=== PATIENT | female | born 1955 | race Caucasian/White ===

== ENCOUNTER 2017-04-20 23:21 | Inpatient (IN) | payer BC, OTHER ==
[2017-04-20] MEDS ORDERED: SODIUM CHLORIDE 0.9% 1,000 ML IV STA (23:48)
[2017-04-20] MEDS ORDERED: ONDANSETRON 4 MG/2 ML VIAL IVP STA (23:48)
[2017-04-20] MEDS ORDERED: PANTOPRAZOLE 40 MG/10 ML VIAL IVP STA (23:48)
--- NOTE | 2017-04-20 23:53 | ED ---
GI Bleed HPI - General Chief complaint: GI Bleed Stated complaint: GI Bleed, dizziness Time Seen by Provider: 04/20/17 23:27 Source: patient Mode of arrival: ambulatory Limitations: no limitations - History of Present Illness Initial comments: This patient is 61-year-old woman who presents to be evaluated for possible GI bleeding. The patient states she was in her usual state of health until after she had eaten, which was around 6 PM tonight. She had an episode of vomiting, and there was some bright red blood associated. Since that time she has had about 4-5 episodes of vomiting, and the blood has darkened and is now coffee- ground material. The patient is denying abdominal pain. No change in bowel movements. No blood or dark tarry stools. The patient does have some postural lightheadedness, but denies chest pain, dyspnea, diaphoresis, syncope or palpitations. She has history of a previous "ulcer surgery" when she was in her 40s. MD complaint: gross hematemesis -: hour(s) - Related Data Allergies Allergy/AdvReac Type Severity Reaction Status Date / Time No Known Allergies Allergy Verified 04/20/17 23:40 Review of Systems ROS Statement: Those systems with pertinent positive or pertinent negative responses have been documented in the HPI. ROS Other: All systems not noted in ROS Statement are negative. Constitutional: Denies: fever, chills, weakness Respiratory: Denies: cough, dyspnea Cardiovascular: Denies: chest pain, palpitations, edema, syncope Gastrointestinal: Reports: nausea, vomiting, hematemesis. Denies: abdominal pain, diarrhea, constipation, melena, hematochezia Genitourinary: Denies: dysuria Musculoskeletal: Denies: back pain Skin: Denies: rash Neurological: Denies: headache, weakness, numbness Hematological/Lymphatic: Denies: easy bleeding Past Medical History Past Medical History: Diabetes Mellitus History of Any Multi-Drug Resistant Organisms: None Reported Past Surgical History: Heart Catheterization Additional Past Surgical History / Comment(s): ear implant Past Psychological History: No Psychological Hx Reported Smoking Status: Former smoker Past Alcohol Use History: Occasional Past Drug Use History: None Reported General Exam Limitations: no limitations General appearance: alert, in no apparent distress Head exam: Present: atraumatic, normocephalic Eye exam: Present: normal appearance, other (Conjunctival pallor). Absent: scleral icterus, conjunctival injection ENT exam: Present: mucous membranes moist, other (Mucosal pallor) Respiratory exam: Present: normal lung sounds bilaterally. Absent: respiratory distress, wheezes, rales, rhonchi, stridor Cardiovascular Exam: Present: regular rate, normal rhythm, systolic murmur ( Grade 1/6 systolic ejection murmur). Absent: diastolic murmur, rubs, gallop GI/Abdominal exam: Present: soft. Absent: distended, tenderness, guarding, rebound, rigid, mass, pulsatile mass, hernia Extremities exam: Present: normal inspection, normal capillary refill. Absent: pedal edema, calf tenderness Back exam: Present: normal inspection. Absent: CVA tenderness (R), CVA tenderness (L) Neurological exam: Present: alert Skin exam: Present: warm, dry, intact, pallor. Absent: rash, cyanosis, diaphoretic, petechiae, mottled Course Vital Signs 04/20/17 04/21/17 04/21/17 23:27 00:58 01:34 Temperature 97.0 F L 98.1 F Pulse Rate 86 87 89 Respiratory 18 18 18 Rate Blood Pressure 114/56 125/58 117/55 O2 Sat by Pulse 97 98 97 Oximetry Medical Decision Making - Lab Data Result diagrams: 04/21/17 00:02 04/21/17 00:02 Lab Results 04/21/17 04/21/17 04/21/17 Range/Units 00:02 00:02 00:02 WBC 10.1 (3.8-10.6) k/uL RBC 2.93 L (3.80-5.40) m/uL Hgb 9.2 L (11.4-16.0) gm/dL Hct 27.4 L (34.0-46.0) % MCV 93.6 (80.0-100.0) fL MCH 31.6 (25.0-35.0) pg MCHC 33.7 (31.0-37.0) g/dL RDW 12.8 (11.5-15.5) % Plt Count 169 (150-450) k/uL Neutrophils % 77 % Lymphocytes % 16 % Monocytes % 4 % Eosinophils % 1 % Basophils % 0 % Neutrophils # 7.9 H (1.3-7.7) k/uL Lymphocytes # 1.6 (1.0-4.8) k/uL Monocytes # 0.4 (0-1.0) k/uL Eosinophils # 0.1 (0-0.7) k/uL Basophils # 0.0 (0-0.2) k/uL Sodium 139 (137-145) mmol/L Potassium 4.9 (3.5-5.1) mmol/L Chloride 105 (98-107) mmol/L Carbon Dioxide 23 (22-30) mmol/L Anion Gap 11 mmol/L BUN 39 H (7-17) mg/dL Creatinine 0.50 L (0.52-1.04) mg/dL Est GFR (MDRD) Af Amer >60 (>60 ml/min/1.73 sqM) Est GFR (MDRD) Non-Af >60 (>60 ml/min/1.73 sqM) Glucose 243 H (74-99) mg/dL Plasma Lactic Acid Yinka (0.7-2.0) mmol/L Calcium 9.2 (8.4-10.2) mg/dL Total Bilirubin 0.5 (0.2-1.3) mg/dL AST 26 (14-36) U/L ALT 44 (9-52) U/L Alkaline Phosphatase 51 (38-126) U/L Total Creatine Kinase 53 (30-135) U/L CK-MB (CK-2) 1.1 (0.0-2.4) ng/mL CK-MB (CK-2) Rel Index 2.1 Troponin I <0.012 (0.000-0.034) ng/mL Total Protein 5.9 L (6.3-8.2) g/dL Albumin 3.7 (3.5-5.0) g/dL Blood Type Blood Type Recheck Antibody Screen Spec Expiration Date 04/21/17 04/21/17 Range/Units 00:02 00:30 WBC (3.8-10.6) k/uL RBC (3.80-5.40) m/uL Hgb (11.4-16.0) gm/dL Hct (34.0-46.0) % MCV (80.0-100.0) fL MCH (25.0-35.0) pg MCHC (31.0-37.0) g/dL RDW (11.5-15.5) % Plt Count (150-450) k/uL Neutrophils % % Lymphocytes % % Monocytes % % Eosinophils % % Basophils % % Neutrophils # (1.3-7.7) k/uL Lymphocytes # (1.0-4.8) k/uL Monocytes # (0-1.0) k/uL Eosinophils # (0-0.7) k/uL Basophils # (0-0.2) k/uL Sodium (137-145) mmol/L Potassium (3.5-5.1) mmol/L Chloride (98-107) mmol/L Carbon Dioxide (22-30) mmol/L Anion Gap mmol/L BUN (7-17) mg/dL Creatinine (0.52-1.04) mg/dL Est GFR (MDRD) Af Amer (>60 ml/min/1.73 sqM) Est GFR (MDRD) Non-Af (>60 ml/min/1.73 sqM) Glucose (74-99) mg/dL Plasma Lactic Acid Yinka 2.1 H (0.7-2.0) mmol/L Calcium (8.4-10.2) mg/dL Total Bilirubin (0.2-1.3) mg/dL AST (14-36) U/L ALT (9-52) U/L Alkaline Phosphatase (38-126) U/L Total Creatine Kinase (30-135) U/L CK-MB (CK-2) (0.0-2.4) ng/mL CK-MB (CK-2) Rel Index Troponin I (0.000-0.034) ng/mL Total Protein (6.3-8.2) g/dL Albumin (3.5-5.0) g/dL Blood Type O Negative Blood Type Recheck O Neg Antibody Screen NEGATIVE Spec Expiration Date 04/24/2017 - 2301 - EKG Data -: EKG Interpreted by [place] EKG shows normal: sinus rhythm, axis (Normal), intervals (Normal), QRS complexes (Normal), ST-T waves (Normal) Rate: normal (Rate 79 bpm) Interpretation: normal EKG Disposition Clinical Impression: Upper gastrointestinal hemorrhage, Anemia Disposition: ADMITTED IP TO THIS [facility] Condition: Fair Referrals: Daphne Waite MD [Primary Care Provider] - 1-2 days
[2017-04-21 00:26] LABS: Basophils % (A) 0 %; CH 32.3; CHCM 34.7; Eosinophils # (A) 0.1 k/uL (0-0.7); Eosinophils % (A) 1 %; HCT 27.4 % (34.0-46.0); HGB 9.2 gm/dL (11.4-16.0); Luc % (Auto) 2; Lymphocytes # (A) 1.6 k/uL (1.0-4.8); Lymphocytes % (A) 16 %; MCH 31.6 pg (25.0-35.0); MCHC 33.7 g/dL (31.0-37.0); MCV 93.6 fL (80.0-100.0); Mean Platelet Volume 9.5; Monocytes # (A) 0.4 k/uL (0-1.0); Monocytes % (A) 4 %; Neutrophils # (A) 7.9 k/uL (1.3-7.7); Neutrophils % (A) 77 %; RBC 2.93 m/uL (3.80-5.40); RDW 12.8 % (11.5-15.5); WBC 10.1 k/uL (3.8-10.6); WBC (Perox) 9.61
[2017-04-21 00:40] LABS: ALT 44 U/L (9-52); AST 26 U/L (14-36); Alkaline Phosphatase 51 U/L (38-126); Anion Gap 11 mmol/L; Blood Urea Nitrogen 39 mg/dL (7-17); Calcium 9.2 mg/dL (8.4-10.2); Carbon Dioxide 23 mmol/L (22-30); Chloride 105 mmol/L (98-107); Glucose 243 mg/dL (74-99); Non-African American GFR(MDRD) >60 (>60 ml/min/1.73 sqM); Potassium 4.9 mmol/L (3.5-5.1); Sodium 139 mmol/L (137-145); Total Bilirubin 0.5 mg/dL (0.2-1.3); Total Protein 5.9 g/dL (6.3-8.2)
[2017-04-21 00:48] LABS: Creatine Kinase 53 U/L (30-135)
[2017-04-21 01:01] LABS: Creatine Kinase MB 1.1 ng/mL (0.0-2.4); Troponin I <0.012 ng/mL (0.000-0.034)
[2017-04-21] MEDS ORDERED: SODIUM CHLORIDE 0.9% 500 ML IV STA (01:57)
[2017-04-21] MEDS ORDERED: NALOXONE 0.4 MG/ML 1 ML VIAL IV PRN (02:06)
[2017-04-21 02:58] LABS: INR 1.2 (<1.1); Prothrombin Time 11.7 sec (9.0-12.0)
[2017-04-21 03:06] LABS: Partial Thromboplastin Time 19.6 sec (22.0-30.0)
[2017-04-21 03:36] VITALS: BMI 28.3
[2017-04-21 04:23] LABS: CHCM 33.5; HDW 2.49; HGB 8.5 gm/dL (11.4-16.0); MCH 32.6 pg (25.0-35.0); MCHC 34.1 g/dL (31.0-37.0); MCV 95.7 fL (80.0-100.0); RBC 2.61 m/uL (3.80-5.40); RDW 12.8 % (11.5-15.5)
[2017-04-21 08:02] LABS: CH 32.2; CHCM 35.3; HCT 23.4 % (34.0-46.0); HDW 2.63; HGB 8.1 gm/dL (11.4-16.0); MCH 31.9 pg (25.0-35.0); MCHC 34.8 g/dL (31.0-37.0); MCV 91.6 fL (80.0-100.0); Mean Platelet Volume 9.2; RBC 2.55 m/uL (3.80-5.40); RDW 12.6 % (11.5-15.5); WBC 9.9 k/uL (3.8-10.6)
[2017-04-21] MEDS: SODIUM CHLORIDE 0.9% 1,000 ML IV SCH ×3 (08:18→15:45)
[2017-04-21] MEDS ORDERED: PANTOPRAZOLE 40 MG/10 ML VIAL IV SCH (09:00)
[2017-04-21] MEDS: ACETAMINOPHEN TAB 325 MG TAB PO PRN ×3 (09:51→23:23)
--- NOTE | 2017-04-21 09:53 | P.CONS ---
History of Present Illness - Reason for Consult Consult date: 04/21/17 GI bleed coffee-ground emesis Requesting physician: Daphne Waite - History of Present Illness 61-year-old female patient of Dr. Waite with a past medical history of diabetes mellitus presents with acute coffee-ground emesis and melena. Patient had a moderate size black bowel movement on Wednesday. Yesterday she had 2 emesis black-colored in nature. History of remote peptic ulcer disease about 20 years ago. No history of colonoscopy. No recent EGD. No aspirin NSAIDs or alcohol. Denies fever, chills, gross hematochezia, or abdominal pain. No weight loss. Hemoglobin 9.2 presently 8.1. Platelet 131. INR 1.2. BUN 39. Creatinine 0.5. Upon review of medical records no previous chemistries to evaluate previous hemoglobin. Review of Systems Constitutional: Denies fever, chills, sweats, weight gain, or loss. HEENT: Negative for migraines, blurred vision or loss, earaches, drainage, tinnitus, oral mucosal lesions, dysphagia, or odynophagia. CARDIAC: Negative for chest pain, arrhythmias, or palpitation. RESPIRATORY: Negative for shortness of breath, hemoptysis, cough, or sputum production. GI: See HPI for pertinent findings. : Negative for hematuria, urgency, frequency, polyuria, or dysuria. GYNc: Denies possibility of . Negative vaginal discharge. MUSCULOSKELETAL: Negative for muscle aches, swelling, arthritis, and arthralgias. NEUROLOGIC: Negative for stroke or TIA. ENDOCRINE: Diabetes mellitus. Negative for thyroid problems. SKIN: Negative for rash or itching. PSYCHIATRIC: Negative history for depression and anxiety All systems: negative (See HPI) Past Medical History Past Medical History: Diabetes Mellitus History of Any Multi-Drug Resistant Organisms: None Reported Past Surgical History: Heart Catheterization Additional Past Surgical History / Comment(s): ear implant Past Anesthesia/Blood Transfusion Reactions: No Reported Reaction Past Psychological History: No Psychological Hx Reported Smoking Status: Former smoker Past Alcohol Use History: Occasional Past Drug Use History: None Reported - Past Family History Mother Additional Family Medical History / Comment(s): Cancer Medications and Allergies Home Medications Medication Instructions Recorded Confirmed Type Levothyroxine Sodium [Synthroid] 88 mcg PO DAILY 04/21/17 04/21/17 History Lisinopril [Prinivil] 5 mg PO DAILY 04/21/17 04/21/17 History Multivitamins, Thera [Multivitamin 1 tab PO DAILY 04/21/17 04/21/17 History (formulary)] Pravastatin Sodium [Pravachol] 20 mg PO HS 04/21/17 04/21/17 History Vit C/E/Zn/Coppr/Lutein/Zeaxan 1 cap PO BID 04/21/17 04/21/17 History [Preservision Areds 2 Softgel] metFORMIN HCL [Glucophage] 850 mg PO BID 04/21/17 04/21/17 History Allergies Allergy/AdvReac Type Severity Reaction Status Date / Time No Known Allergies Allergy Verified 04/21/17 08:43 Physical Exam Vitals: Vital Signs Temp Pulse Pulse Resp BP BP Pulse Ox 04/21/17 07:00 98.6 F 95 16 101/56 98 04/21/17 03:51 94 16 04/21/17 03:37 96.8 F L 91 16 130/64 99 04/21/17 02:21 98.7 F 96 18 117/58 97 04/21/17 01:34 89 18 117/55 97 04/21/17 00:58 98.1 F 87 18 125/58 98 04/20/17 23:27 97.0 F L 86 18 114/56 97 Intake and Output 04/20/17 04/21/17 04/21/17 22:59 06:59 14:59 Intake Total 875 Balance 875 Intake: Amount of Fluid Infused ( 500 ml) Intake, IV Titration 375 Amount Sodium Chloride 0.9% 1, 375 000 ml @ 125 mls/hr IV . Q8H [facility] Rx#:[id number] Other: Voiding Method Toilet # Voids 1 Weight 77.111 kg General appearance: The patient is alert, oriented, in no acute distress. HET: Head is normocephalic and atraumatic. Pupils are equal and reactive. Oropharynx is clear without lesions. Neck: Supple without lymphadenopathy. Trachea midline. Heart: S1 S2. Regular rate and rhythm. Lungs: No crackles or wheezes are heard. Abdomen: Soft, nontender, nondistended with bowel sounds. No peritoneal signs. No palpable organomegaly or masses. Extremities: Normal skin color and turgor. No cyanosis, rash, ulceration, clubbing, or edema. Radial and pedal pulses are 2/4 bilaterally. Neurological: No focal deficits. Strength and sensation are grossly intact. Results CBC & Chem 7: 04/21/17 07:44 04/21/17 00:02 Labs: Abnormal Lab Results - Last 24 Hours (Table) 04/21/17 04/21/17 04/21/17 Range/Units 00:02 00:02 00:30 RBC 2.93 L (3.80-5.40) m/uL Hgb 9.2 L (11.4-16.0) gm/dL Hct 27.4 L (34.0-46.0) % Plt Count (150-450) k/uL Neutrophils # 7.9 H (1.3-7.7) k/uL APTT (22.0-30.0) sec BUN 39 H (7-17) mg/dL Creatinine 0.50 L (0.52-1.04) mg/dL Glucose 243 H (74-99) mg/dL Plasma Lactic Acid Yinka 2.1 H (0.7-2.0) mmol/L Total Protein 5.9 L (6.3-8.2) g/dL 04/21/17 04/21/17 04/21/17 Range/Units 02:30 04:07 07:44 RBC 2.61 L 2.55 L (3.80-5.40) m/uL Hgb 8.5 L 8.1 L (11.4-16.0) gm/dL Hct 25.0 L 23.4 L (34.0-46.0) % Plt Count 138 L 131 L (150-450) k/uL Neutrophils # (1.3-7.7) k/uL APTT 19.6 L (22.0-30.0) sec BUN (7-17) mg/dL Creatinine (0.52-1.04) mg/dL Glucose (74-99) mg/dL Plasma Lactic Acid Yinka (0.7-2.0) mmol/L Total Protein (6.3-8.2) g/dL Assessment and Plan (1) Acute GI bleeding Status: Acute (2) Coffee ground emesis Status: Acute (3) Melena Status: Acute (4) Acute blood loss anemia Status: Acute Plan: 1. Patient consumed a clear liquid diet this morning therefore will proceed with EGD evaluation tomorrow. 2. Diabetic clear liquid diet today. 3. IV Protonix 40 mg twice daily. 4. CBC monitoring. 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 The patient has indicated understanding and acceptance of the risks and procedures discussed. Thank you for this kind referral and the opportunity to participate in the care of your patient. This consultation was discussed with Dr. Flowers. The impression and plan of care have been directed as dictated.
[2017-04-21 14:27] LABS: CH 32.1; CHCM 33.6; HGB 7.4 gm/dL (11.4-16.0); MCH 30.7 pg (25.0-35.0); MCHC 32.1 g/dL (31.0-37.0); MCV 95.9 fL (80.0-100.0); Mean Platelet Volume 9.2; WBC 8.5 k/uL (3.8-10.6)
--- NOTE | 2017-04-21 17:52 | P.HPIM ---
History of Present Illness H&P Date: 04/21/17 Chief Complaint: Gastrointestinal bleeding Patient is a 61-year-old female well known to my practice who presented to [facility] emergency room with 2-3 days history of vomiting up of red blood and having episodes of black tarry stools, on the day of presentation patient was very lightheaded she fell in her bathroom she was unable to get up EMS were called and patient was brought into emergency room. Patient had heme positive stools for hemoglobin on presentation was 8.4 she was admitted to medical floor and gastroenterology consultation was requested. Past Medical History Past Medical History: Diabetes Mellitus History of Any Multi-Drug Resistant Organisms: None Reported Past Surgical History: Heart Catheterization Additional Past Surgical History / Comment(s): ear implant Past Anesthesia/Blood Transfusion Reactions: No Reported Reaction Past Psychological History: No Psychological Hx Reported Smoking Status: Former smoker Past Alcohol Use History: Occasional Past Drug Use History: None Reported - Past Family History Mother Additional Family Medical History / Comment(s): Cancer Medications and Allergies Home Medications Medication Instructions Recorded Confirmed Type Levothyroxine Sodium [Synthroid] 88 mcg PO DAILY 04/21/17 04/21/17 History Lisinopril [Prinivil] 5 mg PO DAILY 04/21/17 04/21/17 History Multivitamins, Thera [Multivitamin 1 tab PO DAILY 04/21/17 04/21/17 History (formulary)] Pravastatin Sodium [Pravachol] 20 mg PO HS 04/21/17 04/21/17 History Vit C/E/Zn/Coppr/Lutein/Zeaxan 1 cap PO BID 04/21/17 04/21/17 History [Preservision Areds 2 Softgel] metFORMIN HCL [Glucophage] 850 mg PO BID 04/21/17 04/21/17 History Allergies Allergy/AdvReac Type Severity Reaction Status Date / Time No Known Allergies Allergy Verified 04/21/17 08:43 Physical Exam Vitals: Vital Signs Temp Pulse Pulse Resp BP BP Pulse Ox 04/21/17 14:48 97.9 F 92 16 111/57 99 04/21/17 07:00 98.6 F 95 16 101/56 98 04/21/17 03:51 94 16 04/21/17 03:37 96.8 F L 91 16 130/64 99 04/21/17 02:21 98.7 F 96 18 117/58 97 04/21/17 01:34 89 18 117/55 97 04/21/17 00:58 98.1 F 87 18 125/58 98 04/20/17 23:27 97.0 F L 86 18 114/56 97 Intake and Output 04/21/17 04/21/17 04/21/17 06:59 14:59 22:59 Intake Total 875 1000 Balance 875 1000 Intake: IV 1000 Sodium Chloride 0.9% 1, 1000 000 ml @ 125 mls/hr IV . Q8H [facility] Rx#:[id number] Amount of Fluid Infused ( 500 ml) Intake, IV Titration 375 Amount Sodium Chloride 0.9% 1, 375 000 ml @ 125 mls/hr IV . Q8H [facility] Rx#:[id number] Other: Voiding Method Toilet # Voids 1 Weight 77.111 kg In general patient is alert and oriented 3 in no apparent distress HEENT head normocephalic and atraumatic Neck is supple no JVD no goiter no lymphadenopathy Chest exam is clear to auscultation no crackles no wheezing Cardiac exam reveals regular heart sounds no gallops no murmurs Abdomen is soft nontender no organomegaly with normal bowel sounds Extremity exam reveals no edema no cyanosis or clubbing Results CBC & Chem 7: 04/21/17 13:51 04/21/17 00:02 Labs: Abnormal Lab Results - Last 24 Hours (Table) 04/21/17 04/21/17 04/21/17 Range/Units 00:02 00:02 00:30 RBC 2.93 L (3.80-5.40) m/uL Hgb 9.2 L (11.4-16.0) gm/dL Hct 27.4 L (34.0-46.0) % Plt Count (150-450) k/uL Neutrophils # 7.9 H (1.3-7.7) k/uL APTT (22.0-30.0) sec BUN 39 H (7-17) mg/dL Creatinine 0.50 L (0.52-1.04) mg/dL Glucose 243 H (74-99) mg/dL Plasma Lactic Acid Yinka 2.1 H (0.7-2.0) mmol/L Total Protein 5.9 L (6.3-8.2) g/dL 04/21/17 04/21/17 04/21/17 Range/Units 02:30 04:07 07:44 RBC 2.61 L 2.55 L (3.80-5.40) m/uL Hgb 8.5 L 8.1 L (11.4-16.0) gm/dL Hct 25.0 L 23.4 L (34.0-46.0) % Plt Count 138 L 131 L (150-450) k/uL Neutrophils # (1.3-7.7) k/uL APTT 19.6 L (22.0-30.0) sec BUN (7-17) mg/dL Creatinine (0.52-1.04) mg/dL Glucose (74-99) mg/dL Plasma Lactic Acid Yinka (0.7-2.0) mmol/L Total Protein (6.3-8.2) g/dL 04/21/17 Range/Units 13:51 RBC 2.40 L (3.80-5.40) m/uL Hgb 7.4 L (11.4-16.0) gm/dL Hct 23.0 L (34.0-46.0) % Plt Count 136 L (150-450) k/uL Neutrophils # (1.3-7.7) k/uL APTT (22.0-30.0) sec BUN (7-17) mg/dL Creatinine (0.52-1.04) mg/dL Glucose (74-99) mg/dL Plasma Lactic Acid Yinka (0.7-2.0) mmol/L Total Protein (6.3-8.2) g/dL Thrombosis Risk Factor Assmnt - Choose All That Apply Any of the Below Risk Factors Present?: No Each Risk Factor Represents 2 Points: Age 61-74 years Thrombosis Risk Factor Assessment Total Risk Factor Score: 2 Thrombosis Risk Factor Assessment Level: Low Risk Assessment and Plan Plan: #1 upper gastrointestinal bleeding, at this time hemoglobin is down to 7.4 patient is maintained on IV Protonix there is no further episodes of vomiting up blood or black tarry stools. Patient will have 1 unit of red blood cell transfusion, consultation for gastroenterology was initiated she is scheduled for EGD tomorrow. #2 anemia of acute blood loss #3 underlying history of [id number] diabetes mellitus patient was maintained on metformin Will hold medication at this time patient is nothing by mouth #4 underlying history of hypothyroidism Will resume Synthroid #5 underlying history of hyperlipidemia Medication and labs were reviewed plan at this time is to transfuse 1 unit of red blood cells were recheck labs in a.m.
[2017-04-21] MEDS: ONDANSETRON 4 MG/2 ML VIAL IVP PRN (21:06)
[2017-04-21] MEDS: PANTOPRAZOLE 40 MG/10 ML VIAL IV SCH (21:07)
[2017-04-22] MEDS: LEVOTHYROXINE 88 MCG TAB PO SCH (06:16)
[2017-04-22] MEDS: SODIUM CHLORIDE 0.9% 1,000 ML IV SCH ×3 (06:17→21:44)
[2017-04-22] MEDS ORDERED: LIDOCAINE 1% INJ 10MG/ML (20 ML MDV) ONE (07:36)
[2017-04-22] MEDS ORDERED: PROPOFOL 10 MG/ML 20 ML VIAL IV ONE (07:36)
[2017-04-22] MEDS ORDERED: LACTATED RINGERS 1,000 ML IV ONE (07:37)
[2017-04-22 07:38] LABS: Basophils % (A) 0 %; CH 32.8; CHCM 35.2; Eosinophils # (A) 0.2 k/uL (0-0.7); Eosinophils % (A) 3 %; HCT 20.7 % (34.0-46.0); HDW 2.89; HGB 7.1 gm/dL (11.4-16.0); Luc # (Auto) 0.18; Luc % (Auto) 3; Lymphocytes # (A) 1.7 k/uL (1.0-4.8); Lymphocytes % (A) 26 %; MCH 32.1 pg (25.0-35.0); MCHC 34.2 g/dL (31.0-37.0); MCV 93.6 fL (80.0-100.0); Mean Platelet Volume 9.6; Monocytes # (A) 0.4 k/uL (0-1.0); Monocytes % (A) 6 %; Neutrophils # (A) 4.1 k/uL (1.3-7.7); Neutrophils % (A) 63 %; RBC 2.21 m/uL (3.80-5.40); RDW 13.3 % (11.5-15.5); WBC 6.5 k/uL (3.8-10.6); WBC (Perox) 6.35
[2017-04-22 07:48] LABS: Anion Gap 4 mmol/L; Blood Urea Nitrogen 28 mg/dL (7-17); Calcium 8.1 mg/dL (8.4-10.2); Carbon Dioxide 27 mmol/L (22-30); Chloride 110 mmol/L (98-107); Glucose 139 mg/dL (74-99); Non-African American GFR(MDRD) >60 (>60 ml/min/1.73 sqM); Potassium 4.5 mmol/L (3.5-5.1); Sodium 141 mmol/L (137-145)
[2017-04-22 07:58] LABS: Glucose,Whole Blood 147 mg/dL (75-99)
--- NOTE | 2017-04-22 08:52 | P.PCN ---
Date of Procedure: 04/22/17 Preoperative Diagnosis: Postoperative Diagnosis: Procedure(s) Performed: Procedure: Esophagogastroduodenoscopy and biopsy and argon plasma coagulation of duodenal telangiectasias. Preoperative diagnosis: Coffee-ground emesis and anemia. Postoperative diagnosis: 1. Small sliding hiatal hernia with no obvious esophagitis or complicated reflux disease. 2. Minimal antral gastritis, biopsies obtained to rule out H. pylori infection. 3. Small duodenal ulceration and multiple duodenal bulb angiectasias spontaneously bleeding at the beginning of the examination controlled by using argon plasma coagulation. Preparation and sedation: Was provided by anesthesia. Brief clinical history: The patient is a 61-year-old female patient with a past medical history of diabetes mellitus presents with acute coffee-ground emesis and melena. Patient had a moderate size black bowel movement 3 days prior to admission. The day prior to admission she had 2 coffee-ground emesis. History of remote peptic ulcer disease about 20 years ago. No history of colonoscopy. No recent EGD. No aspirin NSAIDs or alcohol. Denies fever, chills, gross hematochezia, or abdominal pain. No weight loss. Hemoglobin 9.2 presently 8.1. Platelet 131. INR 1.2. BUN 39. Creatinine 0.5. The details are summarized in the history and physical and dictated consultation. This evaluation to assess for an upper GI source of bleeding. Procedure: With the patient on her left lateral decubitus position and after informed consent and adequate sedation, I passed the Olympus-GIF 160 video upper endoscope through the cricopharyngeus down the esophagus. There was a small sliding hiatal hernia but no obvious esophagitis or complicated reflux disease. No mucosal tears, varices or active bleeding in the esophagus. The endoscope was then passed into the stomach which was insufflated with air and inspected in detail including the retroflex view in the cardia. There was minimal mottling and erythema in the antrum but no ulcers, erosions or active bleeding. The endoscope was then passed into the duodenum. There were no pyloric channel ulcers. The duodenal bulb showed active bleeding. After lavaging the area, I noted a small ulceration and multiple angiectasias that were spontaneously bleeding. I used the argon plasma coagulation power 60 Morrell to control the bleeding. I then obtained biopsies from the antrum before the endoscope was withdrawn. The patient tolerated the procedure well. Plan: The patient was reassured. Would keep on clear liquids and make further plans based on her course. Implants: Indications for Procedure: Operative Findings: Description of Procedure:
[2017-04-22] MEDS: PANTOPRAZOLE 40 MG/10 ML VIAL IV SCH ×2 (09:00→20:00)
[2017-04-22] MEDS: ACETAMINOPHEN TAB 325 MG TAB PO PRN ×3 (09:38→19:59)
[2017-04-22] MEDS ORDERED: FUROSEMIDE 10 MG/ML 2 ML VIAL IV ONE (11:15)
--- NOTE | 2017-04-22 11:18 | P.PN ---
Subjective Hematemesis status post EGD Hemoglobin 7.1. Patient scheduled for another unit of blood today. She denies any abdominal pain. She's had no further episodes of vomiting. Denies any chest pain or shortness of breath. Denies any nausea or vomiting. Denies any difficult urinating. Does report dizziness with sitting up Objective - Vital Signs Vital signs: Vital Signs Temp 98.3 F 04/22/17 07:33 Pulse 96 04/22/17 07:33 Resp 18 04/22/17 07:33 BP 116/60 04/22/17 07:33 Pulse Ox 97 04/22/17 07:33 Intake & Output 04/21/17 04/22/17 04/22/17 18:59 06:59 18:59 Intake Total 1000 1835 50 Balance 1000 1835 50 Intake: IV 1000 50 Sodium Chloride 0.9% 1, 1000 000 ml @ 125 mls/hr IV . Q8H [facility] Rx#:[id number] Intake, IV Titration 625 Amount Sodium Chloride 0.9% 1, 625 000 ml @ 125 mls/hr IV . Q8H [facility] Rx#:[id number] Oral 590 Blood Product 620 Rc As-1 Unit 310 [id number] Other: Voiding Method Toilet # Voids 1 - Exam Head normocephalic Neck supple Lungs clear to auscultation bilaterally no wheezing or crackles Heart regular rate and rhythm S1-S2, no rub or gallop Abdomen is soft nontender nondistended positive bowel sounds no hepatosplenomegaly Extremities no edema Neuro alert and orientated to 3 - Labs CBC & Chem 7: 04/22/17 07:22 04/22/17 07:22 Labs: Abnormal Lab Results - Last 24 Hours (Table) 04/21/17 04/21/17 04/22/17 Range/Units 00:02 13:51 07:22 RBC 2.40 L 2.21 L (3.80-5.40) m/uL Hgb 7.4 L 7.1 L (11.4-16.0) gm/dL Hct 23.0 L 20.7 L (34.0-46.0) % Plt Count 136 L 111 L (150-450) k/uL Chloride (98-107) mmol/L BUN (7-17) mg/dL Glucose (74-99) mg/dL POC Glucose (mg/dL) (75-99) mg/dL Calcium (8.4-10.2) mg/dL Crossmatch See Detail 04/22/17 04/22/17 Range/Units 07:22 07:49 RBC (3.80-5.40) m/uL Hgb (11.4-16.0) gm/dL Hct (34.0-46.0) % Plt Count (150-450) k/uL Chloride 110 H (98-107) mmol/L BUN 28 H (7-17) mg/dL Glucose 139 H (74-99) mg/dL POC Glucose (mg/dL) 147 H (75-99) mg/dL Calcium 8.1 L (8.4-10.2) mg/dL Crossmatch Assessment and Plan Plan: #1 acute upper gastrointestinal bleeding with coffee-ground emesis and melena: Secondary to duodenal ulcer and multiple duodenal bulb angiectasias with spontaneous bleeding that required argon plasma coagulation noted on EGD. Continue IV Protonix. Continue to monitor hemoglobin. #2 acute blood loss anemia secondary to GI bleed. Hemoglobin 7.1. We'll transfuse 1 unit of blood with Lasix at after transfusion. Repeat CBC in a.m. #3 underlying history of [id number] diabetes mellitus patient was maintained on metformin. Metformin on hold during hospitalization. Add sliding scale coverage #4 underlying history of hypothyroidism Will resume Synthroid #5 underlying history of hyperlipidemia Anticipate discharge possibly tomorrow if no further bleeding and hemoglobin improves I performed an examination of the patient and discussed their management with the physician Hangar Attendant. I have reviewed the Physician Hangar Attendant's notes and agree with the documented findings and plan of care
[2017-04-22] MEDS: INSULIN LISPRO (humaLOG) 300 UNIT/3 ML VIAL SQ SCH ×3 (12:40→21:41)
[2017-04-22] MEDS: ONDANSETRON 4 MG/2 ML VIAL IVP PRN (13:24)
[2017-04-22 13:38] LABS: Hemoglobin A1C 6.6 % (4.2-6.1)
[2017-04-22 18:06] LABS: Glucose,Whole Blood 152 mg/dL (75-99)
[2017-04-22] MEDS: PRAVASTATIN SODIUM 20 MG TAB PO SCH (20:00)
[2017-04-22 20:37] LABS: Glucose,Whole Blood 243 mg/dL (75-99)
[2017-04-23] MEDS: SODIUM CHLORIDE 0.9% 1,000 ML IV SCH ×3 (06:08→15:45)
[2017-04-23] MEDS: LEVOTHYROXINE 88 MCG TAB PO SCH (06:08)
[2017-04-23] MEDS: ACETAMINOPHEN TAB 325 MG TAB PO PRN ×2 (06:12→17:05)
[2017-04-23 07:41] LABS: Basophils % (A) 0 %; CH 32.6; Eosinophils % (A) 3 %; HCT 20.3 % (34.0-46.0); HDW 3.08; Luc % (Auto) 2; Lymphocytes # (A) 1.7 k/uL (1.0-4.8); Lymphocytes % (A) 24 %; MCH 31.1 pg (25.0-35.0); MCHC 33.2 g/dL (31.0-37.0); MCV 93.7 fL (80.0-100.0); Mean Platelet Volume 8.7; Monocytes % (A) 5 %; Neutrophils # (A) 4.7 k/uL (1.3-7.7); Neutrophils % (A) 66 %; RBC 2.16 m/uL (3.80-5.40); RDW 15.1 % (11.5-15.5); WBC 7.1 k/uL (3.8-10.6); WBC (Perox) 7.18
[2017-04-23 07:42] LABS: Eosinophils # (A) 0.2 k/uL (0-0.7); Luc # (Auto) 0.16; Monocytes # (A) 0.3 k/uL (0-1.0)
[2017-04-23 07:45] LABS: HGB 6.7 gm/dL (11.4-16.0)
[2017-04-23 07:51] LABS: Glucose,Whole Blood 184 mg/dL (75-99)
[2017-04-23 08:06] LABS: ALT 28 U/L (9-52); AST 21 U/L (14-36); Alkaline Phosphatase 36 U/L (38-126); Anion Gap 7 mmol/L; Blood Urea Nitrogen 21 mg/dL (7-17); Calcium 7.7 mg/dL (8.4-10.2); Carbon Dioxide 24 mmol/L (22-30); Chloride 108 mmol/L (98-107); Glucose 169 mg/dL (74-99); Non-African American GFR(MDRD) >60 (>60 ml/min/1.73 sqM); Potassium 3.8 mmol/L (3.5-5.1); Sodium 139 mmol/L (137-145); Total Bilirubin 0.7 mg/dL (0.2-1.3); Total Protein 4.9 g/dL (6.3-8.2)
[2017-04-23] MEDS: INSULIN LISPRO (humaLOG) 300 UNIT/3 ML VIAL SQ SCH ×4 (08:17→20:31)
[2017-04-23] MEDS: PANTOPRAZOLE 40 MG/10 ML VIAL IV SCH ×2 (08:17→20:31)
[2017-04-23 10:28] LABS: Glucose,Whole Blood 248 mg/dL (75-99)
--- NOTE | 2017-04-23 10:32 | P.PN ---
Subjective Principal diagnosis: Gastrointestinal bleeding Patient is a 61-year-old female well known to my practice who presented to [facility] emergency room with 2-3 days history of vomiting up of red blood and having episodes of black tarry stools, on the day of presentation patient was very lightheaded she fell in her bathroom she was unable to get up EMS were called and patient was brought into emergency room. Patient had heme positive stools for hemoglobin on presentation was 8.4 she was admitted to medical floor and gastroenterology consultation was requested. Patient continues to have significanl bleeding, HGB down to 6.7 2 units of RBCs transfusion were ordered Objective - Vital Signs Vital signs: Vital Signs Temp 98.1 F 04/23/17 07:00 Pulse 78 04/23/17 08:00 Resp 18 04/23/17 08:00 BP 110/61 04/23/17 07:00 Pulse Ox 97 04/23/17 07:00 Intake & Output 04/22/17 04/23/17 04/23/17 18:59 06:59 18:59 Intake Total 360 925 Balance 360 925 Weight 77.111 kg 77.111 kg Intake: IV 50 875 Sodium Chloride 0.9% 1, 875 000 ml @ 125 mls/hr IV . Q8H COUNTS INCLUDE 234 BEDS AT THE [facility] Rx#:[id number] Oral 50 Blood Product 310 Rc As-1 Unit 310 [id number] Other: Voiding Method Toilet Toilet Toilet # Voids 1 1 1 - Exam In general patient is alert and oriented 3 in no apparent distress HEENT head normocephalic and atraumatic Neck is supple no JVD no goiter no lymphadenopathy Chest exam is clear to auscultation no crackles no wheezing Cardiac exam reveals regular heart sounds no gallops no murmurs Abdomen is soft nontender no organomegaly with normal bowel sounds Extremity exam reveals no edema no cyanosis or clubbing - Labs CBC & Chem 7: 04/23/17 07:14 04/23/17 07:14 Labs: Abnormal Lab Results - Last 24 Hours (Table) 04/21/17 04/22/17 04/22/17 Range/Units 00:02 07:22 18:02 RBC (3.80-5.40) m/uL Hgb (11.4-16.0) gm/dL Hct (34.0-46.0) % Plt Count (150-450) k/uL Chloride (98-107) mmol/L BUN (7-17) mg/dL Creatinine (0.52-1.04) mg/dL Glucose (74-99) mg/dL POC Glucose (mg/dL) 152 H (75-99) mg/dL Hemoglobin A1c 6.6 H (4.2-6.1) % Calcium (8.4-10.2) mg/dL Alkaline Phosphatase (38-126) U/L Total Protein (6.3-8.2) g/dL Albumin (3.5-5.0) g/dL Crossmatch See Detail 04/22/17 04/23/17 04/23/17 Range/Units 20:34 07:14 07:14 RBC 2.16 L (3.80-5.40) m/uL Hgb 6.7 L* (11.4-16.0) gm/dL Hct 20.3 L (34.0-46.0) % Plt Count 111 L (150-450) k/uL Chloride 108 H (98-107) mmol/L BUN 21 H (7-17) mg/dL Creatinine 0.49 L (0.52-1.04) mg/dL Glucose 169 H (74-99) mg/dL POC Glucose (mg/dL) 243 H (75-99) mg/dL Hemoglobin A1c (4.2-6.1) % Calcium 7.7 L (8.4-10.2) mg/dL Alkaline Phosphatase 36 L (38-126) U/L Total Protein 4.9 L (6.3-8.2) g/dL Albumin 2.6 L (3.5-5.0) g/dL Crossmatch 04/23/17 Range/Units 07:23 RBC (3.80-5.40) m/uL Hgb (11.4-16.0) gm/dL Hct (34.0-46.0) % Plt Count (150-450) k/uL Chloride (98-107) mmol/L BUN (7-17) mg/dL Creatinine (0.52-1.04) mg/dL Glucose (74-99) mg/dL POC Glucose (mg/dL) 184 H (75-99) mg/dL Hemoglobin A1c (4.2-6.1) % Calcium (8.4-10.2) mg/dL Alkaline Phosphatase (38-126) U/L Total Protein (6.3-8.2) g/dL Albumin (3.5-5.0) g/dL Crossmatch Assessment and Plan Plan: #1 upper gastrointestinal bleeding, at this time hemoglobin is down to 7.4 patient is maintained on IV Protonix there is no further episodes of vomiting up blood or black tarry stools. Patient will have 1 unit of red blood cell transfusion, consultation for gastroenterology was initiated she had EGD yesterday, results were significant for small duodenal ulcer and multiple duodenal bulb angiectesias that were treated with argon plasma coagulation. However through the night patient has significant more bleeding and her hemoglobin this morning is 6.7, patient will be transferred to ICU 2 units of red blood cell transfusion were ordered and will discuss was Dr. Au need for repeat EGD #2 anemia of acute blood loss #3 underlying history of [id number] diabetes mellitus patient was maintained on metformin Will hold medication at this time patient is nothing by mouth #4 underlying history of hypothyroidism Will resume Synthroid #5 underlying history of hyperlipidemia
--- NOTE | 2017-04-23 11:08 | P.PN ---
Subjective Principal diagnosis: GI bleed anemia 61-year-old female admitted with coffee-ground emesis melena status post EGD with biopsy and argon plasma coagulation of duodenal telangiectasias yesterday as well as a small duodenal ulceration not actively bleeding. Patient received 1 unit of blood yesterday for total of 2 units of blood since admission for hemoglobin 7.1. This morning hemoglobin is 6.7. BUN 21 creatinine 0.4. Platelet 111. Black stool 1 this morning. Denies abdominal pain. Feels more weak. No emesis. Afebrile. Arrangements and process transfer to ICU for further monitoring. Blood transfusion 2 units ordered. Objective - Vital Signs Vital signs: Vital Signs Temp 98.4 F 04/23/17 10:33 Pulse 89 04/23/17 11:00 Resp 11 L 04/23/17 11:00 BP 143/65 04/23/17 11:00 Pulse Ox 100 04/23/17 11:00 Intake & Output 04/22/17 04/23/17 04/23/17 18:59 06:59 18:59 Intake Total 360 925 Balance 360 925 Weight 77.111 kg 77.111 kg Intake: IV 50 875 Sodium Chloride 0.9% 1, 875 000 ml @ 125 mls/hr IV . Q8H [facility] Rx#:[id number] Oral 50 Blood Product 310 Rc As-1 Unit 310 [id number] Other: Voiding Method Toilet Toilet Toilet # Voids 1 1 1 - Exam General appearance: The patient is alert, oriented, in no acute distress. HET: Head is normocephalic and atraumatic. Pupils are equal and reactive. Oropharynx is clear without lesions. Neck: Supple without lymphadenopathy. Trachea midline. Heart: S1 S2. Regular rate and rhythm. Lungs: No crackles or wheezes are heard. Abdomen: Soft, nontender, nondistended with bowel sounds. No peritoneal signs. No palpable organomegaly or masses. Extremities: Normal skin color and turgor. No cyanosis, rash, ulceration, clubbing, or edema. Radial and pedal pulses are 2/4 bilaterally. Neurological: No focal deficits. Strength and sensation are grossly intact. - Labs CBC & Chem 7: 04/23/17 07:14 04/23/17 07:14 Labs: Abnormal Lab Results - Last 24 Hours (Table) 04/21/17 04/22/17 04/22/17 Range/Units 00:02 07:22 18:02 RBC (3.80-5.40) m/uL Hgb (11.4-16.0) gm/dL Hct (34.0-46.0) % Plt Count (150-450) k/uL Chloride (98-107) mmol/L BUN (7-17) mg/dL Creatinine (0.52-1.04) mg/dL Glucose (74-99) mg/dL POC Glucose (mg/dL) 152 H (75-99) mg/dL Hemoglobin A1c 6.6 H (4.2-6.1) % Calcium (8.4-10.2) mg/dL Alkaline Phosphatase (38-126) U/L Total Protein (6.3-8.2) g/dL Albumin (3.5-5.0) g/dL Crossmatch See Detail 04/22/17 04/23/17 04/23/17 Range/Units 20:34 07:14 07:14 RBC 2.16 L (3.80-5.40) m/uL Hgb 6.7 L* (11.4-16.0) gm/dL Hct 20.3 L (34.0-46.0) % Plt Count 111 L (150-450) k/uL Chloride 108 H (98-107) mmol/L BUN 21 H (7-17) mg/dL Creatinine 0.49 L (0.52-1.04) mg/dL Glucose 169 H (74-99) mg/dL POC Glucose (mg/dL) 243 H (75-99) mg/dL Hemoglobin A1c (4.2-6.1) % Calcium 7.7 L (8.4-10.2) mg/dL Alkaline Phosphatase 36 L (38-126) U/L Total Protein 4.9 L (6.3-8.2) g/dL Albumin 2.6 L (3.5-5.0) g/dL Crossmatch 04/23/17 04/23/17 Range/Units 07:23 10:26 RBC (3.80-5.40) m/uL Hgb (11.4-16.0) gm/dL Hct (34.0-46.0) % Plt Count (150-450) k/uL Chloride (98-107) mmol/L BUN (7-17) mg/dL Creatinine (0.52-1.04) mg/dL Glucose (74-99) mg/dL POC Glucose (mg/dL) 184 H 248 H (75-99) mg/dL Hemoglobin A1c (4.2-6.1) % Calcium (8.4-10.2) mg/dL Alkaline Phosphatase (38-126) U/L Total Protein (6.3-8.2) g/dL Albumin (3.5-5.0) g/dL Crossmatch Assessment and Plan (1) Acute GI bleeding Status: Acute (2) Coffee ground emesis Status: Acute (3) Melena Status: Acute (4) Acute blood loss anemia Status: Acute (5) Duodenal ulcer Narrative/Plan: Bleeding duodenal telangiectasia status post APC/EGD Status: Acute Plan: 1. Blood transfusion. 2. CBC every 6 hours. 3. IV Protonix 40 mg twice a day. 4. Clear liquid diet. Nothing by mouth after midnight for re-surveillance EGD tomorrow morning. Further workup of her anemia on admission will be determined based on repeat endoscopic results. The admission nurse has discussed the risks, benefits and alternative therapies for the above-mentioned procedure and for both sedation/analgesia as well as necessary blood product administration, if indicated, as they pertain to this patient. The patient has indicated understanding and acceptance of the risks and procedures discussed. Assessment and plan a care discussed with Dr. Talavera
[2017-04-23 11:16] LABS: Basophils % (A) 0 %; CH 32.2; CHCM 34.6; Eosinophils # (A) 0.2 k/uL (0-0.7); Eosinophils % (A) 3 %; HDW 3.12; Luc # (Auto) 0.15; Luc % (Auto) 2; Lymphocytes # (A) 1.5 k/uL (1.0-4.8); Lymphocytes % (A) 21 %; MCH 31.5 pg (25.0-35.0); MCHC 33.7 g/dL (31.0-37.0); MCV 93.7 fL (80.0-100.0); Mean Platelet Volume 9.2; Monocytes # (A) 0.4 k/uL (0-1.0); Monocytes % (A) 5 %; Neutrophils # (A) 4.7 k/uL (1.3-7.7); Neutrophils % (A) 68 %; RBC 2.02 m/uL (3.80-5.40); RDW 15.4 % (11.5-15.5); WBC 6.9 k/uL (3.8-10.6)
[2017-04-23 11:25] LABS: HGB 6.4 gm/dL (11.4-16.0)
[2017-04-23 11:26] LABS: HCT 18.9 % (34.0-46.0)
[2017-04-23 11:39] LABS: INR 1.2 (<1.1); Prothrombin Time 11.5 sec (9.0-12.0)
[2017-04-23 11:49] LABS: Partial Thromboplastin Time 18.7 sec (22.0-30.0)
--- NOTE | 2017-04-23 13:09 | P.CNPUL ---
History of Present Illness Consult date: 04/23/17 Requesting physician: Daphne Waite Reason for consult: other (Upper GI bleeding, patient is presently in the intensive care unit.) Chief complaint: Blackish stools and coffee-ground emesis History of present illness: This is a 61-year-old female with history of diabetes, maintained on metformin, patient had remote history of duodenal ulcer treated medically over 20 years ago. Patient presented to the ER with acute coffee-ground emesis and melena. She had at least 6 bowel movements of black tarry stools. And she also had 2 episodes of emesis, coffee-ground in nature. Patient denies being on nonsteroidal anti-inflammatory drugs, denies any alcohol. Patient was seen by gastroenterology on consultation, and she underwent EGD, she was found to have small sliding hiatal hernia minimal antral gastritis small duodenal ulceration and multiple duodenal bulb angiectasia with spontaneous bleeding at the beginning of the examination controlled by using argon plasma coagulation. Her initially with Lovenox admission was 7.4 and this was on 04/21. Yesterday went down to 7.1, and today her hemoglobin is down to 6.4. So far the patient has received 2 units of packed RBCs, then she was transferred to the ICU, and I was asked to see her on consultation. At the time of my evaluation, patient denied any specific complaints, no headaches no blurred vision no dizziness, no lightheadedness, no nausea no vomiting no abdominal pain continues to have black stools and she had 1 black stool earlier this morning. Denies nausea or hematemesis. Denies abdominal pain, no dysuria and no frequency no urgency. Review of Systems 14 point review of systems obtained, please refer to pertinent positives and negatives as per HPI. Past Medical History Past Medical History: Diabetes Mellitus Additional Past Medical History / Comment(s): History of duodenal ulcer over 20 years ago. History of Any Multi-Drug Resistant Organisms: None Reported Past Surgical History: Heart Catheterization Additional Past Surgical History / Comment(s): ear implant Past Anesthesia/Blood Transfusion Reactions: No Reported Reaction Past Psychological History: No Psychological Hx Reported Smoking Status: Former smoker Past Alcohol Use History: Occasional Past Drug Use History: None Reported - Past Family History Mother Additional Family Medical History / Comment(s): Cancer Medications and Allergies Home Medications Medication Instructions Recorded Confirmed Type Levothyroxine Sodium [Synthroid] 88 mcg PO DAILY 04/21/17 04/21/17 History Lisinopril [Prinivil] 5 mg PO DAILY 04/21/17 04/21/17 History Multivitamins, Thera [Multivitamin 1 tab PO DAILY 04/21/17 04/21/17 History (formulary)] Pravastatin Sodium [Pravachol] 20 mg PO HS 04/21/17 04/21/17 History Vit C/E/Zn/Coppr/Lutein/Zeaxan 1 cap PO BID 04/21/17 04/21/17 History [Preservision Areds 2 Softgel] metFORMIN HCL [Glucophage] 850 mg PO BID 04/21/17 04/21/17 History Allergies Allergy/AdvReac Type Severity Reaction Status Date / Time No Known Allergies Allergy Verified 04/21/17 08:43 Physical Exam Vitals: Vital Signs Temp Pulse Pulse Resp BP BP Pulse Ox 04/23/17 12:50 90 14 124/72 100 04/23/17 12:40 97 32 H 119/60 98 04/23/17 12:30 81 14 111/60 97 04/23/17 12:22 98.6 F 86 14 111/60 96 04/23/17 12:21 97.9 F 81 16 111/60 04/23/17 12:20 80 18 113/63 98 04/23/17 12:10 85 42 H 118/61 96 04/23/17 12:00 97.9 F 86 19 105/59 96 04/23/17 11:52 98.5 F 84 17 105/59 98 04/23/17 11:50 84 18 114/58 97 04/23/17 11:42 98 F 88 14 114/58 95 04/23/17 11:40 84 20 123/64 97 04/23/17 11:30 87 22 117/67 98 04/23/17 11:20 87 19 117/67 98 04/23/17 11:10 86 16 143/65 97 04/23/17 11:00 89 11 L 143/65 100 04/23/17 10:50 86 15 143/65 97 04/23/17 10:33 98.4 F 94 18 140/63 98 04/23/17 08:00 78 18 04/23/17 07:00 98.1 F 78 18 110/61 97 04/22/17 20:46 98.2 F 99 16 109/63 98 04/22/17 16:21 98.6 F 89 18 123/60 100 04/22/17 16:00 89 18 04/22/17 14:48 99.2 F 89 16 128/62 99 04/22/17 14:24 98.6 F 87 18 129/60 98 04/22/17 13:54 98.9 F 89 18 120/57 97 04/22/17 13:44 98.8 F 98 18 117/57 Intake and Output 04/22/17 04/23/17 04/23/17 22:59 06:59 14:59 Intake Total 1235 375 Output Total 1175 Balance 1235 -800 Intake: IV 875 375 Sodium Chloride 0.9% 1, 875 375 000 ml @ 125 mls/hr IV . Q8H [facility] Rx#:[id number] Oral 50 Blood Product 310 0 Rc As-1 Unit 0 [id number] Rc As-1 Unit 310 [id number] Output: Urine 1175 Other: Voiding Method Toilet Indwelling Catheter # Voids 1 1 1 Weight 77.111 kg 77.111 kg Patient Weight 04/24/17 06:59 Weight 77.111 kg General appearance: 61-year-old female in no distress HET: Head is normocephalic and atraumatic. Neck: Supple without lymphadenopathy. No JVD. Heart: S1 S2. Regular rate and rhythm. Lungs: No crackles or wheezes are heard. Abdomen: Soft, nontender, nondistended with bowel sounds. No rebound, no guarding, positive bowel sounds Extremities: No clubbing, no edema, no cyanosis, pulses bilaterally are normal. Neurological: No focal deficits. Results - Laboratory Findings CBC and BMP: 04/23/17 11:02 04/23/17 07:14 PT/INR, D-dimer PT 11.5 sec (9.0-12.0) 04/23/17 11:02 INR 1.2 (<1.1) 04/23/17 11:02 Abnormal lab findings: Abnormal Labs 04/21/17 04/21/17 04/21/17 00:02 00:02 00:02 RBC 2.93 L Hgb 9.2 L Hct 27.4 L Plt Count Neutrophils # 7.9 H APTT Chloride BUN 39 H Creatinine 0.50 L Glucose 243 H POC Glucose (mg/dL) Hemoglobin A1c Plasma Lactic Acid Yinka Calcium Alkaline Phosphatase Total Protein 5.9 L Albumin Crossmatch See Detail 04/21/17 04/21/17 04/21/17 00:30 02:30 04:07 RBC 2.61 L Hgb 8.5 L Hct 25.0 L Plt Count 138 L Neutrophils # APTT 19.6 L Chloride BUN Creatinine Glucose POC Glucose (mg/dL) Hemoglobin A1c Plasma Lactic Acid Yinka 2.1 H Calcium Alkaline Phosphatase Total Protein Albumin Crossmatch 04/21/17 04/21/17 04/22/17 07:44 13:51 07:22 RBC 2.55 L 2.40 L 2.21 L Hgb 8.1 L 7.4 L 7.1 L Hct 23.4 L 23.0 L 20.7 L Plt Count 131 L 136 L 111 L Neutrophils # APTT Chloride BUN Creatinine Glucose POC Glucose (mg/dL) Hemoglobin A1c Plasma Lactic Acid Yinka Calcium Alkaline Phosphatase Total Protein Albumin Crossmatch 04/22/17 04/22/17 04/22/17 07:22 07:22 07:49 RBC Hgb Hct Plt Count Neutrophils # APTT Chloride 110 H BUN 28 H Creatinine Glucose 139 H POC Glucose (mg/dL) 147 H Hemoglobin A1c 6.6 H Plasma Lactic Acid Yinka Calcium 8.1 L Alkaline Phosphatase Total Protein Albumin Crossmatch 04/22/17 04/22/17 04/23/17 18:02 20:34 07:14 RBC 2.16 L Hgb 6.7 L* Hct 20.3 L Plt Count 111 L Neutrophils # APTT Chloride BUN Creatinine Glucose POC Glucose (mg/dL) 152 H 243 H Hemoglobin A1c Plasma Lactic Acid Yinka Calcium Alkaline Phosphatase Total Protein Albumin Crossmatch 04/23/17 04/23/17 04/23/17 07:14 07:23 10:26 RBC Hgb Hct Plt Count Neutrophils # APTT Chloride 108 H BUN 21 H Creatinine 0.49 L Glucose 169 H POC Glucose (mg/dL) 184 H 248 H Hemoglobin A1c Plasma Lactic Acid Yinka Calcium 7.7 L Alkaline Phosphatase 36 L Total Protein 4.9 L Albumin 2.6 L Crossmatch 04/23/17 04/23/17 11:02 11:02 RBC 2.02 L Hgb 6.4 L* Hct 18.9 L* Plt Count 117 L Neutrophils # APTT 18.7 L Chloride BUN Creatinine Glucose POC Glucose (mg/dL) Hemoglobin A1c Plasma Lactic Acid Yinka Calcium Alkaline Phosphatase Total Protein Albumin Crossmatch - Diagnostic Findings Additional studies: No chest x-ray or radiological studies done on this admission Assessment and Plan Plan: Impression: 1 Acute upper GI bleeding from duodenal ulcer and duodenal telangiectasia, status post EGD, argon plasma coagulation. 2 acute anemia secondary to blood loss from upper GI bleeding. 3 duodenal ulcer 4 history of type 2 diabetes Recommendation: Patient will be monitored in the ICU, she is presently receiving her second unit of packed RBCs, she has serial hemoglobin and hematocrit ordered and she is closely being followed by gastroenterology, repeat EGD is being considered for possibly tomorrow. Patient is presently hemodynamically stable, and no active bleeding at the time of my evaluation. We 'll continue to follow. In the meantime continue Protonix 40 mg IV push every 12 hours. Time with Patient: Greater than 30
[2017-04-23 17:22] LABS: Glucose,Whole Blood 126 mg/dL (75-99)
[2017-04-23 19:22] LABS: Basophils # (A) 0.1 k/uL (0-0.2); Basophils % (A) 1 %; Eosinophils # (A) 0.2 k/uL (0-0.7); Eosinophils % (A) 3 %; HCT 28.1 % (34.0-46.0); Luc # (Auto) 0.15; Luc % (Auto) 2; Lymphocytes # (A) 1.6 k/uL (1.0-4.8); Lymphocytes % (A) 21 %; MCHC 32.7 g/dL (31.0-37.0); MCV 94.9 fL (80.0-100.0); Monocytes # (A) 0.3 k/uL (0-1.0); Monocytes % (A) 5 %; Neutrophils # (A) 5.1 k/uL (1.3-7.7); Neutrophils % (A) 69 %; RBC 2.96 m/uL (3.80-5.40); RDW 15.1 % (11.5-15.5); WBC 7.4 k/uL (3.8-10.6); WBC (Perox) 6.99
[2017-04-23 19:26] LABS: HGB 9.2 gm/dL (11.4-16.0)
[2017-04-23 19:30] LABS: Anion Gap 8 mmol/L; Blood Urea Nitrogen 16 mg/dL (7-17); Calcium 7.9 mg/dL (8.4-10.2); Carbon Dioxide 22 mmol/L (22-30); Chloride 110 mmol/L (98-107); Glucose 206 mg/dL (74-99); Magnesium 1.6 mg/dL (1.6-2.3); Non-African American GFR(MDRD) >60 (>60 ml/min/1.73 sqM); Potassium 3.7 mmol/L (3.5-5.1); Sodium 140 mmol/L (137-145)
[2017-04-23 20:22] LABS: Glucose,Whole Blood 191 mg/dL (75-99)
[2017-04-23] MEDS: PRAVASTATIN SODIUM 20 MG TAB PO SCH (21:09)
[2017-04-24] MEDS ORDERED: Potassium Replacement Protocol 1 EACH MISC MISCELLANE PRN (01:49)
[2017-04-24] MEDS ORDERED: Magnesium Replacement Protocol 1 EACH MISC MISCELLANE PRN (01:49)
[2017-04-24] MEDS ORDERED: POTASSIUM CHLORIDE ER 20 MEQ TAB.ER PO SCH ×2 (02:00→20:00)
[2017-04-24] MEDS: MAGNESIUM SULFATE-D5W PMX 1 GM in DEXTROSE/WATER 1 100ML.BAG IVPB SCH ×2 (02:29→03:41)
[2017-04-24] MEDS: POTASSIUM CHLORIDE 10 MEQ, LIDOCAINE 2% INJ 10 MG in SODIUM CHLORIDE 0.9% 100 ML IV SCH ×2 (02:29→03:41)
[2017-04-24] MEDS: SODIUM CHLORIDE 0.9% 1,000 ML IV SCH ×3 (02:38→18:03)
[2017-04-24 02:41] LABS: Basophils % (A) 0 %; CH 32.2; CHCM 35.5; Eosinophils # (A) 0.2 k/uL (0-0.7); Eosinophils % (A) 4 %; HCT 25.3 % (34.0-46.0); HGB 8.6 gm/dL (11.4-16.0); Luc # (Auto) 0.12; Luc % (Auto) 2; Lymphocytes # (A) 1.6 k/uL (1.0-4.8); Lymphocytes % (A) 24 %; MCH 31.2 pg (25.0-35.0); MCV 91.5 fL (80.0-100.0); Mean Platelet Volume 8.5; Monocytes # (A) 0.4 k/uL (0-1.0); Monocytes % (A) 5 %; Neutrophils # (A) 4.2 k/uL (1.3-7.7); Neutrophils % (A) 65 %; RBC 2.76 m/uL (3.80-5.40); RDW 15.8 % (11.5-15.5); WBC 6.5 k/uL (3.8-10.6); WBC (Perox) 6.49
[2017-04-24 08:19] LABS: Anisocytosis Slight; Basophils % (A) 0 %; CH 32.4; Eosinophils # (A) 0.3 k/uL (0-0.7); Eosinophils % (A) 4 %; HCT 24.4 % (34.0-46.0); HDW 3.38; HGB 8.8 gm/dL (11.4-16.0); Hyperchromasia Slight; Luc # (Auto) 0.15; Luc % (Auto) 2; Lymphocytes # (A) 1.4 k/uL (1.0-4.8); Lymphocytes % (A) 20 %; MCH 31.7 pg (25.0-35.0); MCHC 35.8 g/dL (31.0-37.0); MCV 88.4 fL (80.0-100.0); Mean Platelet Volume 8.3; Monocytes # (A) 0.3 k/uL (0-1.0); Monocytes % (A) 4 %; Neutrophils # (A) 4.5 k/uL (1.3-7.7); Neutrophils % (A) 68 %; RBC 2.77 m/uL (3.80-5.40); RDW 16.2 % (11.5-15.5); WBC 6.6 k/uL (3.8-10.6); WBC (Perox) 6.87
[2017-04-24] MEDS: PANTOPRAZOLE 40 MG/10 ML VIAL IV SCH ×2 (08:32→20:28)
[2017-04-24 08:33] LABS: Glucose,Whole Blood 161 mg/dL (75-99)
[2017-04-24] MEDS: INSULIN LISPRO (humaLOG) 300 UNIT/3 ML VIAL SQ SCH ×4 (08:33→20:27)
[2017-04-24 08:45] LABS: ALT 29 U/L (9-52); AST 22 U/L (14-36); Alkaline Phosphatase 40 U/L (38-126); Anion Gap 7 mmol/L; Blood Urea Nitrogen 12 mg/dL (7-17); Calcium 7.8 mg/dL (8.4-10.2); Carbon Dioxide 23 mmol/L (22-30); Chloride 111 mmol/L (98-107); Glucose 154 mg/dL (74-99); Non-African American GFR(MDRD) >60 (>60 ml/min/1.73 sqM); Potassium 3.8 mmol/L (3.5-5.1); Sodium 141 mmol/L (137-145); Total Bilirubin 0.8 mg/dL (0.2-1.3); Total Protein 4.9 g/dL (6.3-8.2)
[2017-04-24] MEDS ORDERED: PROPOFOL 10 MG/ML 20 ML VIAL IV ONE (09:32)
[2017-04-24] MEDS ORDERED: IV FLUID CONTINUATION 1,000 ML IV ONE (09:33)
--- NOTE | 2017-04-24 10:16 | P.PCN ---
Date of Procedure: 04/24/17 Preoperative Diagnosis: Postoperative Diagnosis: Procedure(s) Performed: Procedure: Esophagogastroduodenoscopy. Preoperative diagnosis: Acute recurrent upper GI bleeding and anemia. Postoperative diagnosis: Minimal spontaneous oozing of blood in the duodenal bulb from areas of recent argon plasma coagulation with no single visible vessel or bleeding site to require any specific intervention at this time. Preparation and sedation: Was provided by anesthesia. Brief clinical history: The patient is a 61-year-old female patient with a past medical history of diabetes mellitus presents with acute coffee-ground emesis and melena. Patient had a moderate size black bowel movement 3 days prior to admission. The day prior to admission she had 2 coffee-ground emesis. History of remote peptic ulcer disease about 20 years ago. No history of colonoscopy. No recent EGD. No aspirin NSAIDs or alcohol. Denies fever, chills, gross hematochezia, or abdominal pain. No weight loss. Hemoglobin 9.2 presently 8.1. Platelet 131. INR 1.2. BUN 39. Creatinine 0.5. The patient underwent an evaluation on April 22 to assess for a source of bleeding and she had evidence of active bleeding in the duodenum originating in a small ulceration and areas of angiectasias that were spontaneously bleeding. I used the argon plasma coagulation power 60 Morrell to control the bleeding I then obtained biopsies from the antrum. The biopsies were negative for H. pylori infection. The patient had recurrent drop in her hemoglobin that night down to 6.4 requiring 2 units of packed cells transfusion. The details are summarized in the history and physical and dictated consultation. This evaluation to assess for the status of her upper GI bleeding and anemia and to guide therapy.. Procedure: With the patient on her left lateral decubitus position and after informed consent and adequate sedation, I passed the Olympus-GIF 160 video upper endoscope through the cricopharyngeus down the esophagus. There was a small sliding hiatal hernia but no obvious esophagitis or complicated reflux disease. No mucosal tears, varices or active bleeding in the esophagus. The endoscope was then passed into the stomach which was insufflated with air and inspected in detail including the retroflex view in the cardia. There was minimal mottling and erythema in the antrum but no ulcers, erosions or active bleeding. The area of the biopsy from couple days ago was noted and there was no bleeding. The endoscope was then passed into the duodenum. There were no pyloric channel ulcers. The duodenal bulb showed minimal oozing of blood. After lavaging the area, I noted areas of erythema and friability surrounding the areas which were treated with the plasma coagulation April 22. There was no single visible vessel or bleeding site to require any specific intervention at this time. No biopsies were obtained either. The patient tolerated the procedure well. Plan: The patient was reassured. Would keep on clear liquids and add Carafate. We will continue to monitor her blood counts closely and make further plans based on her course. Implants: Indications for Procedure: Operative Findings: Description of Procedure:
[2017-04-24] MEDS: LEVOTHYROXINE 88 MCG TAB PO SCH (10:36)
--- NOTE | 2017-04-24 11:09 | P.PN ---
Subjective Principal diagnosis: Gastrointestinal bleeding Patient is a 61-year-old female well known to my practice who presented to [facility] emergency room with 2-3 days history of vomiting up of red blood and having episodes of black tarry stools, on the day of presentation patient was very lightheaded she fell in her bathroom she was unable to get up EMS were called and patient was brought into emergency room. Patient had heme positive stools for hemoglobin on presentation was 8.4 she was admitted to medical floor and gastroenterology consultation was requested. Patient continues to have significanl bleeding, HGB down to 6.7 2 units of RBCs transfusion were ordered Objective - Vital Signs Vital signs: Vital Signs Temp 98.0 F 04/24/17 08:00 Pulse 77 04/24/17 09:00 Resp 16 04/24/17 09:00 BP 113/65 04/24/17 09:00 Pulse Ox 98 04/24/17 09:00 Intake & Output 04/23/17 04/24/17 04/24/17 18:59 06:59 18:59 Intake Total 2245 2300 475 Output Total 2825 2195 925 Balance -580 105 -450 Weight 77.111 kg 83.7 kg Intake: IV 1125 1500 475 Sodium Chloride 0.9% 1, 1125 1500 375 000 ml @ 125 mls/hr IV . Q8H ROHITH Rx#:[id number] Intake, IV Titration 400 Amount Magnesium Sulfate-D5w Pmx 200 1 gm In Dextrose/Water 1 100ml.bag @ 100 mls/hr IVPB Q1H ROHITH Rx#: [id number] Potassium Chloride 10 meq 200 Lidocaine 2% Inj 10 mg In Sodium Chloride 0.9% 100 ml @ 100 mls/hr IV Q1HR ROHITH Rx#:[id number] Oral 500 400 Blood Product 620 Rc As-1 Unit 310 [id number] Rc As-1 Unit 310 [id number] Output: Urine 2825 2195 925 Other: Voiding Method Indwelling Catheter Indwelling Catheter Indwelling Catheter # Voids 1 # Bowel Movements 1 - Exam In general patient is alert and oriented 3 in no apparent distress HEENT head normocephalic and atraumatic Neck is supple no JVD no goiter no lymphadenopathy Chest exam is clear to auscultation no crackles no wheezing Cardiac exam reveals regular heart sounds no gallops no murmurs Abdomen is soft nontender no organomegaly with normal bowel sounds Extremity exam reveals no edema no cyanosis or clubbing - Labs CBC & Chem 7: 04/24/17 08:07 04/24/17 08:07 Labs: Abnormal Lab Results - Last 24 Hours (Table) 04/21/17 04/23/17 04/23/17 Range/Units 00:02 11:02 11:02 RBC 2.02 L (3.80-5.40) m/uL Hgb 6.4 L* (11.4-16.0) gm/dL Hct 18.9 L* (34.0-46.0) % RDW (11.5-15.5) % Plt Count 117 L (150-450) k/uL APTT 18.7 L (22.0-30.0) sec Chloride (98-107) mmol/L Creatinine (0.52-1.04) mg/dL Glucose (74-99) mg/dL POC Glucose (mg/dL) (75-99) mg/dL Calcium (8.4-10.2) mg/dL Total Protein (6.3-8.2) g/dL Albumin (3.5-5.0) g/dL Crossmatch See Detail 04/23/17 04/23/17 04/23/17 Range/Units 17:09 19:03 19:03 RBC 2.96 L (3.80-5.40) m/uL Hgb 9.2 L D (11.4-16.0) gm/dL Hct 28.1 L (34.0-46.0) % RDW (11.5-15.5) % Plt Count 124 L (150-450) k/uL APTT (22.0-30.0) sec Chloride 110 H (98-107) mmol/L Creatinine 0.49 L (0.52-1.04) mg/dL Glucose 206 H (74-99) mg/dL POC Glucose (mg/dL) 126 H (75-99) mg/dL Calcium 7.9 L (8.4-10.2) mg/dL Total Protein (6.3-8.2) g/dL Albumin (3.5-5.0) g/dL Crossmatch 04/23/17 04/24/17 04/24/17 Range/Units 20:20 02:30 08:07 RBC 2.76 L 2.77 L (3.80-5.40) m/uL Hgb 8.6 L 8.8 L (11.4-16.0) gm/dL Hct 25.3 L 24.4 L (34.0-46.0) % RDW 15.8 H 16.2 H (11.5-15.5) % Plt Count 107 L 105 L (150-450) k/uL APTT (22.0-30.0) sec Chloride (98-107) mmol/L Creatinine (0.52-1.04) mg/dL Glucose (74-99) mg/dL POC Glucose (mg/dL) 191 H (75-99) mg/dL Calcium (8.4-10.2) mg/dL Total Protein (6.3-8.2) g/dL Albumin (3.5-5.0) g/dL Crossmatch 04/24/17 04/24/17 Range/Units 08:07 08:30 RBC (3.80-5.40) m/uL Hgb (11.4-16.0) gm/dL Hct (34.0-46.0) % RDW (11.5-15.5) % Plt Count (150-450) k/uL APTT (22.0-30.0) sec Chloride 111 H (98-107) mmol/L Creatinine 0.44 L (0.52-1.04) mg/dL Glucose 154 H (74-99) mg/dL POC Glucose (mg/dL) 161 H (75-99) mg/dL Calcium 7.8 L (8.4-10.2) mg/dL Total Protein 4.9 L (6.3-8.2) g/dL Albumin 2.7 L (3.5-5.0) g/dL Crossmatch Assessment and Plan Plan: #1 upper gastrointestinal bleeding, at this time hemoglobin is down to 7.4 patient is maintained on IV Protonix there is no further episodes of vomiting up blood or black tarry stools. Patient will have 1 unit of red blood cell transfusion, consultation for gastroenterology was initiated she had EGD yesterday, results were significant for small duodenal ulcer and multiple duodenal bulb angiectesias that were treated with argon plasma coagulation. However through the night patient has significant more bleeding and her hemoglobin this morning is 8.8, patient was transferred to ICU 2 units of red blood cell transfusion were given yesterday. Patient was seen again by Dr. Au and underwent an EGD is this morning there was minimal wheezing in the duodenal bulb not necessitating any intervention. #2 anemia of acute blood loss #3 underlying history of aht-fglfbdq-wzfeirmri diabetes mellitus patient was maintained on metformin Will hold medication at this time patient is nothing by mouth #4 underlying history of hypothyroidism Will resume Synthroid #5 underlying history of hyperlipidemia Patient is stable she will be monitored, continue was current management
--- NOTE | 2017-04-24 11:13 | P.PN ---
Subjective Principal diagnosis: Acute upper GI bleeding History of present illness: This is a 61-year-old female with history of diabetes, maintained on metformin, patient had remote history of duodenal ulcer treated medically over 20 years ago. Patient presented to the ER with acute coffee-ground emesis and melena. She had at least 6 bowel movements of black tarry stools. And she also had 2 episodes of emesis, coffee-ground in nature. Patient denies being on nonsteroidal anti-inflammatory drugs, denies any alcohol. Patient was seen by gastroenterology on consultation, and she underwent EGD, she was found to have small sliding hiatal hernia minimal antral gastritis small duodenal ulceration and multiple duodenal bulb angiectasia with spontaneous bleeding at the beginning of the examination controlled by using argon plasma coagulation. Her initially with Lovenox admission was 7.4 and this was on 04/21. Yesterday went down to 7.1, and today her hemoglobin is down to 6.4. So far the patient has received 2 units of packed RBCs, then she was transferred to the ICU, and I was asked to see her on consultation. At the time of my evaluation, patient denied any specific complaints, no headaches no blurred vision no dizziness, no lightheadedness, no nausea no vomiting no abdominal pain continues to have black stools and she had 1 black stool earlier this morning. Denies nausea or hematemesis. Denies abdominal pain, no dysuria and no frequency no urgency. Patient was reevaluated today on 04/24/2017, doing quite well, hemodynamically stable, patient received a total of 2 units of packed RBCs and her hemoglobin seems to be stabilizing. Today's hemoglobin is 8.8, yesterday after 2 units of packed RBCs it was 9.2. Hence no significant change is appreciated. Patient underwent EGD again today, and there was minimal oozing from her previous duodenal site, did not require any intervention. And it was felt by the sidehand to leave it alone for now. And continue medical therapy. Overall the patient is doing well, and she is again asymptomatic continues to have some black stools. But no hematemesis and no bright red blood per rectum. Objective - Vital Signs Vital signs: Vital Signs Temp 98.0 F 04/24/17 08:00 Pulse 77 04/24/17 09:00 Resp 16 04/24/17 09:00 BP 113/65 04/24/17 09:00 Pulse Ox 98 04/24/17 09:00 Intake & Output 04/23/17 04/24/17 04/24/17 18:59 06:59 18:59 Intake Total 2245 2300 475 Output Total 2825 2195 925 Balance -580 105 -450 Weight 77.111 kg 83.7 kg Intake: IV 1125 1500 475 Sodium Chloride 0.9% 1, 1125 1500 375 000 ml @ 125 mls/hr IV . Q8H ROHITH Rx#:[id number] Intake, IV Titration 400 Amount Magnesium Sulfate-D5w Pmx 200 1 gm In Dextrose/Water 1 100ml.bag @ 100 mls/hr IVPB Q1H ROHITH Rx#: [id number] Potassium Chloride 10 meq 200 Lidocaine 2% Inj 10 mg In Sodium Chloride 0.9% 100 ml @ 100 mls/hr IV Q1HR ROHITH Rx#:[id number] Oral 500 400 Blood Product 620 Rc As-1 Unit 310 [id number] Rc As-1 Unit 310 [id number] Output: Urine 2825 2195 925 Other: Voiding Method Indwelling Catheter Indwelling Catheter Indwelling Catheter # Voids 1 # Bowel Movements 1 - Exam General appearance: 61-year-old female in no distress HET: Head is normocephalic and atraumatic. Neck: Supple without lymphadenopathy. No JVD. Heart: S1 S2. Regular rate and rhythm. Lungs: No crackles or wheezes are heard. Abdomen: Soft, nontender, nondistended with bowel sounds. No rebound, no guarding, positive bowel sounds Extremities: No clubbing, no edema, no cyanosis, pulses bilaterally are normal. Neurological: No focal deficits. - Labs CBC & Chem 7: 04/24/17 08:07 04/24/17 08:07 Labs: Abnormal Lab Results - Last 24 Hours (Table) 04/21/17 04/23/17 04/23/17 Range/Units 00:02 11:02 11:02 RBC 2.02 L (3.80-5.40) m/uL Hgb 6.4 L* (11.4-16.0) gm/dL Hct 18.9 L* (34.0-46.0) % RDW (11.5-15.5) % Plt Count 117 L (150-450) k/uL APTT 18.7 L (22.0-30.0) sec Chloride (98-107) mmol/L Creatinine (0.52-1.04) mg/dL Glucose (74-99) mg/dL POC Glucose (mg/dL) (75-99) mg/dL Calcium (8.4-10.2) mg/dL Total Protein (6.3-8.2) g/dL Albumin (3.5-5.0) g/dL Crossmatch See Detail 04/23/17 04/23/17 04/23/17 Range/Units 17:09 19:03 19:03 RBC 2.96 L (3.80-5.40) m/uL Hgb 9.2 L D (11.4-16.0) gm/dL Hct 28.1 L (34.0-46.0) % RDW (11.5-15.5) % Plt Count 124 L (150-450) k/uL APTT (22.0-30.0) sec Chloride 110 H (98-107) mmol/L Creatinine 0.49 L (0.52-1.04) mg/dL Glucose 206 H (74-99) mg/dL POC Glucose (mg/dL) 126 H (75-99) mg/dL Calcium 7.9 L (8.4-10.2) mg/dL Total Protein (6.3-8.2) g/dL Albumin (3.5-5.0) g/dL Crossmatch 04/23/17 04/24/17 04/24/17 Range/Units 20:20 02:30 08:07 RBC 2.76 L 2.77 L (3.80-5.40) m/uL Hgb 8.6 L 8.8 L (11.4-16.0) gm/dL Hct 25.3 L 24.4 L (34.0-46.0) % RDW 15.8 H 16.2 H (11.5-15.5) % Plt Count 107 L 105 L (150-450) k/uL APTT (22.0-30.0) sec Chloride (98-107) mmol/L Creatinine (0.52-1.04) mg/dL Glucose (74-99) mg/dL POC Glucose (mg/dL) 191 H (75-99) mg/dL Calcium (8.4-10.2) mg/dL Total Protein (6.3-8.2) g/dL Albumin (3.5-5.0) g/dL Crossmatch 04/24/17 04/24/17 Range/Units 08:07 08:30 RBC (3.80-5.40) m/uL Hgb (11.4-16.0) gm/dL Hct (34.0-46.0) % RDW (11.5-15.5) % Plt Count (150-450) k/uL APTT (22.0-30.0) sec Chloride 111 H (98-107) mmol/L Creatinine 0.44 L (0.52-1.04) mg/dL Glucose 154 H (74-99) mg/dL POC Glucose (mg/dL) 161 H (75-99) mg/dL Calcium 7.8 L (8.4-10.2) mg/dL Total Protein 4.9 L (6.3-8.2) g/dL Albumin 2.7 L (3.5-5.0) g/dL Crossmatch Assessment and Plan Plan: Impression: 1 Acute upper GI bleeding from duodenal ulcer and duodenal telangiectasia, status post EGD, 2, argon plasma coagulation. 1 2 acute anemia secondary to blood loss from upper GI bleeding. 3 duodenal ulcer 4 history of type 2 diabetes Recommendation: Continue present supportive care measures, consider monitoring the patient on the medical surgical floor if she remains stable over the next few hours. No clear-cut need at this point for stay in the ICU. Continue to follow. Time with Patient: Less than 30
[2017-04-24] MEDS: SUCRALFATE 1 GM TAB PO SCH ×2 (12:13→18:02)
[2017-04-24] MEDS: ACETAMINOPHEN TAB 325 MG TAB PO PRN ×2 (12:13→18:02)
[2017-04-24 12:17] LABS: Glucose,Whole Blood 135 mg/dL (75-99)
[2017-04-24 17:18] LABS: Glucose,Whole Blood 138 mg/dL (75-99)
[2017-04-24 18:36] LABS: Anisocytosis Slight; Basophils % (A) 0 %; CH 32.5; CHCM 36.1; Eosinophils # (A) 0.3 k/uL (0-0.7); Eosinophils % (A) 5 %; HCT 24.9 % (34.0-46.0); HGB 8.7 gm/dL (11.4-16.0); Luc # (Auto) 0.18; Luc % (Auto) 3; Lymphocytes # (A) 1.6 k/uL (1.0-4.8); Lymphocytes % (A) 24 %; MCH 31.8 pg (25.0-35.0); MCV 90.9 fL (80.0-100.0); Mean Platelet Volume 8.4; Monocytes # (A) 0.3 k/uL (0-1.0); Monocytes % (A) 5 %; Neutrophils # (A) 4.1 k/uL (1.3-7.7); Neutrophils % (A) 63 %; RBC 2.73 m/uL (3.80-5.40); RDW 16.9 % (11.5-15.5); WBC 6.4 k/uL (3.8-10.6); WBC (Perox) 6.81
[2017-04-24 20:27] LABS: Glucose,Whole Blood 145 mg/dL (75-99)
[2017-04-24] MEDS: PRAVASTATIN SODIUM 20 MG TAB PO SCH (20:28)
[2017-04-24 21:51] VITALS: RESP 16
[2017-04-25] MEDS: LEVOTHYROXINE 88 MCG TAB PO SCH (05:42)
[2017-04-25] MEDS: SODIUM CHLORIDE 0.9% 1,000 ML IV SCH ×3 (05:44→15:08)
[2017-04-25 07:04] LABS: Glucose,Whole Blood 146 mg/dL (75-99)
[2017-04-25 07:48] LABS: Anisocytosis Slight; Basophils % (A) 0 %; CH 31.7; CHCM 33.9; Eosinophils # (A) 0.2 k/uL (0-0.7); Eosinophils % (A) 5 %; HCT 26.2 % (34.0-46.0); HDW 3.24; HGB 8.8 gm/dL (11.4-16.0); Luc # (Auto) 0.12; Luc % (Auto) 3; Lymphocytes % (A) 22 %; MCH 31.7 pg (25.0-35.0); MCHC 33.5 g/dL (31.0-37.0); MCV 94.4 fL (80.0-100.0); Mean Platelet Volume 8.3; Monocytes # (A) 0.2 k/uL (0-1.0); Monocytes % (A) 5 %; Neutrophils # (A) 2.9 k/uL (1.3-7.7); Neutrophils % (A) 65 %; RBC 2.78 m/uL (3.80-5.40); RDW 17.2 % (11.5-15.5); WBC 4.5 k/uL (3.8-10.6); WBC (Perox) 4.68
[2017-04-25 08:02] LABS: ALT 39 U/L (9-52); AST 37 U/L (14-36); Alkaline Phosphatase 46 U/L (38-126); Anion Gap 7 mmol/L; Blood Urea Nitrogen 6 mg/dL (7-17); Calcium 8.3 mg/dL (8.4-10.2); Carbon Dioxide 23 mmol/L (22-30); Chloride 110 mmol/L (98-107); Glucose 137 mg/dL (74-99); Magnesium 1.9 mg/dL (1.6-2.3); Non-African American GFR(MDRD) >60 (>60 ml/min/1.73 sqM); Potassium 4.2 mmol/L (3.5-5.1); Sodium 140 mmol/L (137-145); Total Protein 5.3 g/dL (6.3-8.2)
--- NOTE | 2017-04-25 08:24 | P.PN ---
Subjective 61-year-old female being seen on the surgical unit this morning. Patient's tolerating clear liquid diet. Patient denies abdominal pain. Patient denies any stool this morning . This been no hematemesis. Hemoglobin this morning is 8.8. Patient underwent an EGD and April 24 in summary it showed minimal spontaneous oozing of blood in the duodenal bulb from areas of recent argon plasma coagulation with no single visible vessel or bleeding site to require any specific intervention at this time. History of present illness: This is a 61-year-old female with history of diabetes, maintained on metformin, patient had remote history of duodenal ulcer treated medically over 20 years ago. Patient presented to the ER with acute coffee-ground emesis and melena. She had at least 6 bowel movements of black tarry stools. And she also had 2 episodes of emesis, coffee-ground in nature. Patient denies being on nonsteroidal anti-inflammatory drugs, denies any alcohol. Patient was seen by gastroenterology on consultation, and she underwent EGD, she was found to have small sliding hiatal hernia minimal antral gastritis small duodenal ulceration and multiple duodenal bulb angiectasia with spontaneous bleeding at the beginning of the examination controlled by using argon plasma coagulation. Her initially with Lovenox admission was 7.4 and this was on 04/21. Yesterday went down to 7.1, and today her hemoglobin is down to 6.4. So far the patient has received 2 units of packed RBCs, then she was transferred to the ICU, close monitoring. Patient was able to be transferred out of the ICU on April 24 to the surgical unit Objective - Vital Signs Vital signs: Vital Signs Temp 98.3 F 04/25/17 07:10 Pulse 77 04/25/17 07:10 Resp 16 04/25/17 07:10 BP 120/75 04/25/17 07:10 Pulse Ox 100 04/25/17 07:10 Intake & Output 04/24/17 04/25/17 04/25/17 18:59 06:59 18:59 Intake Total 835 1125 Output Total 925 Balance -90 1125 Intake: IV 475 1125 Sodium Chloride 0.9% 1, 375 1125 000 ml @ 125 mls/hr IV . Q8H ROHITH Rx#:[id number] Oral 360 Output: Urine 925 Other: Voiding Method Indwelling Catheter Toilet # Voids 1 - Exam Physical exam 61-year-old female sitting up in bed and taking a clear liquid diet tolerating a denies any abdominal pain no nausea no vomiting no shortness of breath no chest pain Lungs essentially clear adequate air movement on room air sats are 98% no cough Heart S1-S2 audible and regular denying chest pain Abdomen soft not distended bowel tones present no guarding nontender states no bowel movement this morning no hematemesis Extremities no edema noted - Labs CBC & Chem 7: 04/25/17 07:19 04/25/17 07:19 Labs: Abnormal Lab Results - Last 24 Hours (Table) 04/24/17 04/24/17 04/24/17 Range/Units 08:07 08:07 08:30 RBC 2.77 L (3.80-5.40) m/uL Hgb 8.8 L (11.4-16.0) gm/dL Hct 24.4 L (34.0-46.0) % RDW 16.2 H (11.5-15.5) % Plt Count 105 L (150-450) k/uL Chloride 111 H (98-107) mmol/L BUN (7-17) mg/dL Creatinine 0.44 L (0.52-1.04) mg/dL Glucose 154 H (74-99) mg/dL POC Glucose (mg/dL) 161 H (75-99) mg/dL Calcium 7.8 L (8.4-10.2) mg/dL AST (14-36) U/L Total Protein 4.9 L (6.3-8.2) g/dL Albumin 2.7 L (3.5-5.0) g/dL 04/24/17 04/24/17 04/24/17 Range/Units 12:15 17:14 18:27 RBC 2.73 L (3.80-5.40) m/uL Hgb 8.7 L (11.4-16.0) gm/dL Hct 24.9 L (34.0-46.0) % RDW 16.9 H (11.5-15.5) % Plt Count 120 L (150-450) k/uL Chloride (98-107) mmol/L BUN (7-17) mg/dL Creatinine (0.52-1.04) mg/dL Glucose (74-99) mg/dL POC Glucose (mg/dL) 135 H 138 H (75-99) mg/dL Calcium (8.4-10.2) mg/dL AST (14-36) U/L Total Protein (6.3-8.2) g/dL Albumin (3.5-5.0) g/dL 04/24/17 04/25/17 04/25/17 Range/Units 20:25 06:51 07:19 RBC (3.80-5.40) m/uL Hgb (11.4-16.0) gm/dL Hct (34.0-46.0) % RDW (11.5-15.5) % Plt Count (150-450) k/uL Chloride 110 H (98-107) mmol/L BUN 6 L (7-17) mg/dL Creatinine 0.47 L (0.52-1.04) mg/dL Glucose 137 H (74-99) mg/dL POC Glucose (mg/dL) 145 H 146 H (75-99) mg/dL Calcium 8.3 L (8.4-10.2) mg/dL AST 37 H (14-36) U/L Total Protein 5.3 L (6.3-8.2) g/dL Albumin 3.0 L (3.5-5.0) g/dL 04/25/17 Range/Units 07:19 RBC 2.78 L (3.80-5.40) m/uL Hgb 8.8 L (11.4-16.0) gm/dL Hct 26.2 L (34.0-46.0) % RDW 17.2 H (11.5-15.5) % Plt Count 120 L (150-450) k/uL Chloride (98-107) mmol/L BUN (7-17) mg/dL Creatinine (0.52-1.04) mg/dL Glucose (74-99) mg/dL POC Glucose (mg/dL) (75-99) mg/dL Calcium (8.4-10.2) mg/dL AST (14-36) U/L Total Protein (6.3-8.2) g/dL Albumin (3.5-5.0) g/dL Assessment and Plan Plan: Assessment and Plan Plan: #1 upper gastrointestinal bleeding, at this time hemoglobin is down to 7.4 patient is maintained on IV Protonix there is no further episodes of vomiting up blood or black tarry stools. Patient will have 1 unit of red blood cell transfusion, consultation for gastroenterology was initiated she had EGD yesterday, results were significant for small duodenal ulcer and multiple duodenal bulb angiectesias that were treated with argon plasma coagulation. However through the night patient has significant more bleeding and her hemoglobin this morning is 8.8, patient was transferred to ICU 2 units of red blood cell transfusion were given yesterday. Patient was seen again by Dr. Au and underwent an EGD is this morning there was minimal wheezing in the duodenal bulb not necessitating any intervention. #2 admission symptomatic anemia of acute blood loss suspect due to an upper gastrointestinal bleed #3 underlying history of yvv-azfyjur-rfdxtilba diabetes mellitus patient was maintained on metformin Will hold medication at this time patient is nothing by mouth #4 underlying history of hypothyroidism Will resume Synthroid #5 underlying history of hyperlipidemia The above dictated assessment and findings were discussed with dr simon . Impression and the plan of care have been dictated as directed. Isabel Gaytan nurse practitioner acting as a scribe for dr simon
[2017-04-25] MEDS: SUCRALFATE 1 GM TAB PO SCH ×3 (08:41→17:32)
[2017-04-25] MEDS: PANTOPRAZOLE 40 MG/10 ML VIAL IV SCH ×2 (08:41→20:38)
[2017-04-25] MEDS: INSULIN LISPRO (humaLOG) 300 UNIT/3 ML VIAL SQ SCH ×4 (09:11→20:38)
[2017-04-25 11:35] LABS: Glucose,Whole Blood 266 mg/dL (75-99)
--- NOTE | 2017-04-25 11:44 | P.PN ---
Subjective Principal diagnosis: Acute upper GI bleeding This is a 61-year-old female with history of diabetes, maintained on metformin, patient had remote history of duodenal ulcer treated medically over 20 years ago. Patient presented to the ER with acute coffee-ground emesis and melena. She had at least 6 bowel movements of black tarry stools. And she also had 2 episodes of emesis, coffee-ground in nature. Patient denies being on nonsteroidal anti-inflammatory drugs, denies any alcohol. Patient was seen by gastroenterology on consultation, and she underwent EGD, she was found to have small sliding hiatal hernia minimal antral gastritis small duodenal ulceration and multiple duodenal bulb angiectasia with spontaneous bleeding at the beginning of the examination controlled by using argon plasma coagulation. Her initially with Lovenox admission was 7.4 and this was on 04/21. Yesterday went down to 7.1, and today her hemoglobin is down to 6.4. So far the patient has received 2 units of packed RBCs, then she was transferred to the ICU, and I was asked to see her on consultation. At the time of my evaluation, patient denied any specific complaints, no headaches no blurred vision no dizziness, no lightheadedness, no nausea no vomiting no abdominal pain continues to have black stools and she had 1 black stool earlier this morning. Denies nausea or hematemesis. Denies abdominal pain, no dysuria and no frequency no urgency. Patient was reevaluated today on 04/24/2017, doing quite well, hemodynamically stable, patient received a total of 2 units of packed RBCs and her hemoglobin seems to be stabilizing. Today's hemoglobin is 8.8, yesterday after 2 units of packed RBCs it was 9.2. Hence no significant change is appreciated. Patient underwent EGD again today, and there was minimal oozing from her previous duodenal site, did not require any intervention. And it was felt by the optical lens manufacturing tech to leave it alone for now. And continue medical therapy. Overall the patient is doing well, and she is again asymptomatic continues to have some black stools. But no hematemesis and no bright red blood per rectum. Reevaluated today on 04/25/2017, patient is doing quite well clinically. Hemoglobin remains stable, patient received a total of 4 units of packed RBCs since admission. Over the last 2 days, no blood transfusion was required. And report of her last EGD was reviewed. Patient is hemodynamically stable, and the relatively asymptomatic. Objective - Vital Signs Vital signs: Vital Signs Temp 98.3 F 04/25/17 07:10 Pulse 77 04/25/17 07:10 Resp 16 04/25/17 07:10 BP 120/75 04/25/17 07:10 Pulse Ox 100 04/25/17 07:10 Intake & Output 04/24/17 04/25/17 04/25/17 18:59 06:59 18:59 Intake Total 835 1125 Output Total 925 Balance -90 1125 Intake: IV 475 1125 Sodium Chloride 0.9% 1, 375 1125 000 ml @ 125 mls/hr IV . Q8H ROHITH Rx#:[id number] Oral 360 Output: Urine 925 Other: Voiding Method Indwelling Catheter Toilet # Voids 1 - Exam General appearance: 61-year-old female in no distress HET: Head is normocephalic and atraumatic. Neck: Supple without lymphadenopathy. No JVD. Heart: S1 S2. Regular rate and rhythm. Lungs: No crackles or wheezes are heard. Abdomen: Soft, nontender, nondistended with bowel sounds. No rebound, no guarding, positive bowel sounds Extremities: No clubbing, no edema, no cyanosis, pulses bilaterally are normal. Neurological: No focal deficits. - Labs CBC & Chem 7: 04/25/17 07:19 04/25/17 07:19 Labs: Abnormal Lab Results - Last 24 Hours (Table) 04/24/17 04/24/17 04/24/17 Range/Units 12:15 17:14 18:27 RBC 2.73 L (3.80-5.40) m/uL Hgb 8.7 L (11.4-16.0) gm/dL Hct 24.9 L (34.0-46.0) % RDW 16.9 H (11.5-15.5) % Plt Count 120 L (150-450) k/uL Chloride (98-107) mmol/L BUN (7-17) mg/dL Creatinine (0.52-1.04) mg/dL Glucose (74-99) mg/dL POC Glucose (mg/dL) 135 H 138 H (75-99) mg/dL Calcium (8.4-10.2) mg/dL AST (14-36) U/L Total Protein (6.3-8.2) g/dL Albumin (3.5-5.0) g/dL 04/24/17 04/25/17 04/25/17 Range/Units 20:25 06:51 07:19 RBC (3.80-5.40) m/uL Hgb (11.4-16.0) gm/dL Hct (34.0-46.0) % RDW (11.5-15.5) % Plt Count (150-450) k/uL Chloride 110 H (98-107) mmol/L BUN 6 L (7-17) mg/dL Creatinine 0.47 L (0.52-1.04) mg/dL Glucose 137 H (74-99) mg/dL POC Glucose (mg/dL) 145 H 146 H (75-99) mg/dL Calcium 8.3 L (8.4-10.2) mg/dL AST 37 H (14-36) U/L Total Protein 5.3 L (6.3-8.2) g/dL Albumin 3.0 L (3.5-5.0) g/dL 04/25/17 04/25/17 Range/Units 07:19 11:26 RBC 2.78 L (3.80-5.40) m/uL Hgb 8.8 L (11.4-16.0) gm/dL Hct 26.2 L (34.0-46.0) % RDW 17.2 H (11.5-15.5) % Plt Count 120 L (150-450) k/uL Chloride (98-107) mmol/L BUN (7-17) mg/dL Creatinine (0.52-1.04) mg/dL Glucose (74-99) mg/dL POC Glucose (mg/dL) 266 H (75-99) mg/dL Calcium (8.4-10.2) mg/dL AST (14-36) U/L Total Protein (6.3-8.2) g/dL Albumin (3.5-5.0) g/dL Assessment and Plan Plan: Impression: 1 Acute upper GI bleeding from duodenal ulcer and duodenal telangiectasia, status post EGD, 2, argon plasma coagulation. 1 2 acute anemia secondary to blood loss from upper GI bleeding. 3 duodenal ulcer 4 history of type 2 diabetes Recommendation: Continue present supportive care measures, consider discharge planning in the next 24 hours if cleared by gastroenterology, continue treatment plan for her duodenal angiectasia. Time with Patient: Less than 30
[2017-04-25 16:51] LABS: Glucose,Whole Blood 147 mg/dL (75-99)
[2017-04-25 20:38] LABS: Glucose,Whole Blood 215 mg/dL (75-99)
[2017-04-25] MEDS: PRAVASTATIN SODIUM 20 MG TAB PO SCH (20:38)
[2017-04-26] MEDS: ACETAMINOPHEN TAB 325 MG TAB PO PRN (03:35)
[2017-04-26] MEDS: SODIUM CHLORIDE 0.9% 1,000 ML IV SCH ×2 (04:18→11:59)
--- NOTE | 2017-04-26 04:31 | P.PN ---
Progress Note - Text The patient is a 61-year-old female patient with a past medical history of diabetes mellitus presents with acute coffee-ground emesis and melena. Patient had a moderate size black bowel movement 3 days prior to admission. The day prior to admission she had 2 coffee-ground emesis. History of remote peptic ulcer disease about 20 years ago. The patient underwent an evaluation on April 22 to assess for a source of bleeding and she had evidence of active bleeding in the duodenum originating in a small ulceration and areas of angiectasias that were spontaneously bleeding. I used the argon plasma coagulation power 60 Morrell to control the bleeding I then obtained biopsies from the antrum. The biopsies were negative for H. pylori infection. The patient had recurrent drop in her hemoglobin that night down to 6.4 requiring 2 units of packed cells transfusion. I repeated the upper endoscopy and that showed minimal spontaneous oozing of blood in the duodenal bulb from areas of recent argon plasma coagulation with no single visible vessel or bleeding site to require any specific intervention at this time. The patient continued to improve after that with stabilization in her hemoglobin. Her hemoglobin today is 8.8 essentially unchanged for the last 24 hours. Her vital signs are stable, she is ambulating without any problems. I agree with your current management. I recommend that the patient remain on PPI after discharge for a total of 8-12 weeks. She may require acid suppressive therapy in the future jail especially if she needs to be on NSAIDs. I will be happy to see in the office as outpatient after discharge.
[2017-04-26] MEDS: LEVOTHYROXINE 88 MCG TAB PO SCH (05:32)
[2017-04-26 06:58] LABS: Glucose,Whole Blood 165 mg/dL (75-99)
[2017-04-26 07:03] LABS: Anisocytosis Slight; Basophils % (A) 0 %; CH 32.4; CHCM 35.8; Eosinophils # (A) 0.2 k/uL (0-0.7); Eosinophils % (A) 4 %; HCT 26.4 % (34.0-46.0); HDW 3.66; Luc # (Auto) 0.16; Luc % (Auto) 3; Lymphocytes # (A) 1.1 k/uL (1.0-4.8); Lymphocytes % (A) 22 %; MCH 31.3 pg (25.0-35.0); MCHC 34.2 g/dL (31.0-37.0); MCV 91.5 fL (80.0-100.0); Mean Platelet Volume 9.5; Monocytes # (A) 0.3 k/uL (0-1.0); Monocytes % (A) 5 %; Neutrophils # (A) 3.3 k/uL (1.3-7.7); Neutrophils % (A) 65 %; Poikilocytosis Slight; RBC 2.88 m/uL (3.80-5.40); RDW 17.4 % (11.5-15.5); WBC 5.1 k/uL (3.8-10.6); WBC (Perox) 5.39
[2017-04-26 07:18] LABS: ALT 37 U/L (9-52); AST 33 U/L (14-36); Alkaline Phosphatase 54 U/L (38-126); Anion Gap 8 mmol/L; Blood Urea Nitrogen 5 mg/dL (7-17); Calcium 8.8 mg/dL (8.4-10.2); Carbon Dioxide 29 mmol/L (22-30); Chloride 105 mmol/L (98-107); Glucose 151 mg/dL (74-99); Magnesium 1.8 mg/dL (1.6-2.3); Non-African American GFR(MDRD) >60 (>60 ml/min/1.73 sqM); Potassium 4.4 mmol/L (3.5-5.1); Sodium 142 mmol/L (137-145); Total Bilirubin 0.8 mg/dL (0.2-1.3); Total Protein 5.4 g/dL (6.3-8.2)
[2017-04-26] MEDS: PANTOPRAZOLE 40 MG/10 ML VIAL IV SCH (07:46)
[2017-04-26] MEDS: SUCRALFATE 1 GM TAB PO SCH ×2 (07:46→12:54)
[2017-04-26] MEDS: INSULIN LISPRO (humaLOG) 300 UNIT/3 ML VIAL SQ SCH ×2 (07:46→12:51)
[2017-04-26 07:58] VITALS: BP 135/82; TEMP 97.6
[2017-04-26 09:04] VITALS: PULSE 67
[2017-04-26 12:00] LABS: Glucose,Whole Blood 159 mg/dL (75-99)
--- NOTE | 2017-04-26 12:34 | P.DS ---
Providers Date of admission: 04/21/17 02:06 Expected date of discharge: 04/26/17 Attending physician: Daphne Waite Consults: 04/21/17 02:07 Consult Physician Routine Consulting Provider: Emilee Flowers Consult Reason/Comments: GI Bleeding Do you want consulting provider notified?: Yes 04/23/17 11:38 Consult Physician Routine Consulting Provider: Cami Minaya Reason/Comments: ICU management Do you want consulting provider notified?: Yes, Notify in am Primary care physician: Daphne Ravindra [facility] Course: Discharge diagnosis #1 acute upper GI bleed secondary to duodenal ulcer and multiple old wall no bulb angiectesias that required cauterization. upper gastrointestinal bleeding , at this time hemoglobin is down to 7.4 patient is maintained on IV Protonix there is no further episodes of vomiting up blood or black tarry stools. Patient will have 1 unit of red blood cell transfusion, consultation for gastroenterology was initiated she had EGD yesterday, results were significant for small duodenal ulcer and multiple duodenal bulb angiectesias that were treated with argon plasma coagulation. However through the night patient has significant more bleeding and her hemoglobin this morning is 8.8, patient was transferred to ICU 2 units of red blood cell transfusion were given yesterday. Patient was seen again by Dr. Au and underwent an EGD is this morning there was minimal oozing of blood in the duodenal bulb not necessitating any intervention. #2 admission symptomatic anemia of acute blood loss suspect due to an upper gastrointestinal bleed #3 underlying history of [id number] diabetes mellitus patient #4 underlying history of hypothyroidism Will resume Synthroid #5 underlying history of hyperlipidemia Hospital course Patient is a 61-year-old female well known to my practice who presented to [facility] emergency room with 2-3 days history of vomiting up of red blood and having episodes of black tarry stools, on the day of presentation patient was very lightheaded she fell in her bathroom she was unable to get up EMS were called and patient was brought into emergency room. Patient had heme positive stools for hemoglobin on presentation was 8.4 she was admitted to medical floor and gastroenterology consultation was requested. Patient had acute blood loss anemia requiring blood transfusions. She underwent an EGD. The results are stated above. The duodenal ulcer and duodenal AVMs did contribute to her GI bleed. She required cauterization. Was on IV Protonix. Patient had another bout of black tarry stools required a transfer to the ICU was given another 2 units of blood. Had a repeat EGD with Dr. Au that showed minimal spontaneous oozing of blood on the wall and all from areas of recent argon plasma coagulation with no single-vessel visible or bleeding sites require any specific intervention at this time. patient's hemoglobin did stabilize. Hemoglobin is at 9 at discharge. Recommend that she follows up with Dr. Waite next week to have a repeat CBC. Also she'll follow- up with Dr. Valdez in 2 weeks. Patient will continue the Protonix 40 mg by mouth twice a day and Carafate 1 g 3 times a day. Patient is medically stable for discharge. She is been educated to avoid any NSAID products. And she does not take aspirin. Patient Condition at Discharge: Stable Plan - Discharge Summary New Discharge Prescriptions: New Pantoprazole [Protonix] 40 mg PO BID #60 tablet. Sucralfate [Carafate] 1 gm PO AC-TID #84 tab Continue metFORMIN HCL [Glucophage] 850 mg PO BID Pravastatin Sodium [Pravachol] 20 mg PO HS Multivitamins, Thera [Multivitamin (formulary)] 1 tab PO DAILY Lisinopril [Prinivil] 5 mg PO DAILY Levothyroxine Sodium [Synthroid] 88 mcg PO DAILY Vit C/E/Zn/Coppr/Lutein/Zeaxan [Preservision Areds 2 Softgel] 1 cap PO BID Discharge Medication List Levothyroxine Sodium [Synthroid] 88 mcg PO DAILY 04/21/17 [History] Lisinopril [Prinivil] 5 mg PO DAILY 04/21/17 [History] Multivitamins, Thera [Multivitamin (formulary)] 1 tab PO DAILY 04/21/17 [History ] Pravastatin Sodium [Pravachol] 20 mg PO HS 04/21/17 [History] Vit C/E/Zn/Coppr/Lutein/Zeaxan [Preservision Areds 2 Softgel] 1 cap PO BID 04/21 [History] metFORMIN HCL [Glucophage] 850 mg PO BID 04/21/17 [History] Pantoprazole [Protonix] 40 mg PO BID #60 tablet. 04/26/17 [Rx] Sucralfate [Carafate] 1 gm PO AC-TID #84 tab 04/26/17 [Rx] Follow up Appointment(s)/Referral(s): Fco Talavera MD [STAFF PHYSICIAN] - 2 Weeks Daphne Waite MD [Primary Care Provider] - 1 Week Activity/Diet/Wound Care/Special Instructions: Diet: soft and advance gradually Activity: as tolerated Discharge Disposition: HOME SELF-CARE
== END 2017-04-26 13:45 | disposition home or self-care (01) | DRG 606 ==
LOC: EC 23:21 → 5MS5E 04-21 02:06 → 6ICU 04-23 10:49 → 3SUR 04-24 21:44
PROVIDERS: ADMIT Internal Medicine; ATTEND Internal Medicine
PROC: 30233N1 Transfusion of Nonautologous Red Blood Cells into Peripheral Vein, Percutaneous Approach (ICD-10-PCS; 2017-04-21)
PROC: 0DB68ZX Excision of Stomach, Via Natural or Artificial Opening Endoscopic, Diagnostic (ICD-10-PCS; principal; 2017-04-22 11:25)
PROC: 0W3P8ZZ Control Bleeding in Gastrointestinal Tract, Via Natural or Artificial Opening Endoscopic (ICD-10-PCS; 2017-04-22 11:25)
PROC: 0DJ08ZZ Inspection of Upper Intestinal Tract, Via Natural or Artificial Opening Endoscopic (ICD-10-PCS; 2017-04-24)
DX: I78.1 Nevus, non-neoplastic (principal); K26.4 Chronic or unspecified duodenal ulcer with hemorrhage; D62 Acute posthemorrhagic anemia; E03.9 Hypothyroidism, unspecified; E11.9 Type 2 diabetes mellitus without complications; E78.5 Hyperlipidemia, unspecified; K44.9 Diaphragmatic hernia without obstruction or gangrene; K29.70 Gastritis, unspecified, without bleeding; Z79.84 Long term (current) use of oral hypoglycemic drugs; Z79.899 Other long term (current) drug therapy; Z87.891 Personal history of nicotine dependence; Z87.11 Personal history of peptic ulcer disease
CPT/HCPCS: 36415; 43235; 43239; 43270; 80048; 80053; 82550; 82553; 83036; 83605; 83735; 84484; 85025; 85027; 85610; 85730; 86850; 86900; 86901; 86920; 88305; 88342; 93005; 96361; 96374; 96375; 99285

== ENCOUNTER → 2018-07-12 | Outpatient (CLI) | payer OTHER ==
--- NOTE | 2018-07-12 12:58 | US ---
EXAMINATION TYPE: US liver DATE OF EXAM: 07/12/2018 COMPARISON: NONE CLINICAL HISTORY: R94.5 abnormal liver function. EXAM MEASUREMENTS: Liver Length: 18.6 cm Gallbladder Wall: 0.2 cm CBD: 0.4 cm Right Kidney: 10.6 x 3.4 x 4.9cm Pancreas: Tail partially obscured by overlying bowel gas Liver: Increased attenuation, decreased visualization of vessels, hepatomegaly Gallbladder: wnl Evidence for sonographic Jiménez's sign: no CBD: wnl Right Kidney: wnl IMPRESSION: 1. Visualized abdomen ultrasound is unremarkable. 2. Hepatomegaly with mild fatty infiltration.
== END | disposition home or self-care (01) ==
LOC: RADUSWWP 07:37
PROVIDERS: ATTEND Internal Medicine
DX: K76.0 Fatty (change of) liver, not elsewhere classified (principal); R16.0 Hepatomegaly, not elsewhere classified
CPT/HCPCS: 76705

== ENCOUNTER → 2018-11-29 | Outpatient (CLI) | payer OTHER ==
--- NOTE | 2018-12-05 14:33 | MM ---
Reason for exam: screening (asymptomatic). Last mammogram was performed 1 year and 3 months ago. History: Patient is postmenopausal. Benign left mammotome panel of the left breast, January 04, 2006. Physical Findings: A clinical breast exam by your physician is recommended on an annual basis and results should be correlated with mammographic findings. MG Screening Mammo w CAD Bilateral CC and MLO view(s) were taken. Prior study comparison: September 01, 2017, bilateral MG screening mammo w CAD. June 22, 2016, bilateral MG 3d screening mammo w/cad. There are scattered fibroglandular densities. Previous mammotome biopsy in the left breast. There is chronic nodularity in the left breast. No significant changes when compared with prior studies. ASSESSMENT: Negative, BI-RAD 1 RECOMMENDATION: Routine screening mammogram of both breasts in 1 year.
== END ==
LOC: RADMAMWWP 08:32
PROVIDERS: ATTEND Internal Medicine
DX: Z12.31 Encounter for screening mammogram for malignant neoplasm of breast (principal)
CPT/HCPCS: 77067

== ENCOUNTER → 2020-01-16 | Outpatient (CLI) | payer BC ==
--- NOTE | 2020-01-17 11:56 | MM ---
Reason for exam: screening (asymptomatic). Last mammogram was performed 1 year and 2 months ago. History: Patient is postmenopausal. Benign left mammotome panel of the left breast, January 04, 2006. Physical Findings: A clinical breast exam by your physician is recommended on an annual basis and results should be correlated with mammographic findings. MG Screening Mammo w CAD Bilateral CC and MLO view(s) were taken. Prior study comparison: November 29, 2018, bilateral MG screening mammo w CAD. September 01, 2017, bilateral MG screening mammo w CAD. There are scattered fibroglandular densities. Benign appearing calcifications in the left breast. Previous mammotome biopsy in the left breast. There is chronic nodularity in the left breast. ASSESSMENT: Benign, BI-RAD 2 RECOMMENDATION: Routine screening mammogram of both breasts in 1 year.
== END | disposition home or self-care (01) ==
LOC: RADMAMWWP 12:44
PROVIDERS: ATTEND Internal Medicine
DX: Z12.31 Encounter for screening mammogram for malignant neoplasm of breast (principal)
CPT/HCPCS: 77067

== ENCOUNTER 2020-07-01 18:50 | Inpatient (IN) | payer BC ==
[2020-07-01] MEDS ORDERED: PANTOPRAZOLE 40 MG/10 ML VIAL IVP STA (19:21)
--- NOTE | 2020-07-01 19:22 | ED ---
General Adult HPI - General Chief complaint: GI Bleed Stated complaint: Vomiting Blood Time Seen by Provider: 07/01/20 19:08 Source: patient Mode of arrival: wheelchair Limitations: no limitations - History of Present Illness Initial comments: Dictation was produced using [employer] dictation software. please excuse any grammatical, word or spelling errors. This patient was cared for during a federal and state declared state of emergency secondary to Covid 19 Chief Complaint: 64-year-old female presents with coffee-ground emesis. History of Present Illness: Patient 64-year-old female she has past medical history of duodenal ulcers. Patient states that today she had full bouts of coffee-ground emesis. She's been very upset the last several days because they just put her mom into the hospice. Patient states that in 2017 she had a endoscopy identified peptic ulcers that needed intervention. Been fine since then. She does have some mild epigastric pain. She has not eaten so she cannot attest to if her symptoms are worse with food intake. bedside reports that patient does appear more pale to usual. The ROS documented in this emergency department record has been reviewed and confirmed by me. Those systems with pertinent positive or negative responses have been documented in the HPI. All other systems are other negative and/or noncontributory. PHYSICAL EXAM: General Impression: Alert and oriented x3, not in acute distress, mild pallor HEENT: Normocephalic atraumatic, extra-ocular movements intact, pupils equal and reactive to light bilaterally, mucous membranes moist. Cardiovascular: Heart regular rate and rhythm Chest: Able to complete full sentences, no retractions, no tachypnea Abdomen: abdomen soft, non-tender, non-distended, no organomegaly Musculoskeletal: Pulses present and equal in all extremities, no peripheral edema Motor: no focal deficits noted Neurological: CN II-XII grossly intact, no focal motor or sensory deficits noted Skin: Intact with no visualized rashes Psych: Normal affect and mood Rectal: No gross blood, no signs of melena ED course: 64-year-old female with past medical history of peptic ulcer disease percents with coffee-ground emesis. Vital signs upon arrival are within acceptable limits. After performing my HPI and physical exam several minutes after patient had episode where she syncopized. She did have a blood pressure that was normal. She has had nausea. EKG was done immediately after syncopal episode. EKG was benign. Laboratory evaluation tape. Hemoglobin is 9.7. This appears to be depressed,. 21 week ago when patient had hemoglobin level 14.3. Metabolic panel is unremarkable. Stool occult blood is negative. Clinical presentation concerning with acute upper GI bleed. Patient given Protonix. Considering patient's clinical presentation with patient would benefit from inpatient admission with GI consultation. Patient will be admitted to Dr. Waite EKG interpretation: Ventricular rate 86, normal sinus rhythm, NV interval 150, QRS 68, QTC. No NV prolongation, no QTC prolongation, no ST or T-wave changes noted. Overall, this EKG is unremarkable - Related Data Home Medications Medication Instructions Recorded Confirmed Levothyroxine Sodium [Synthroid] 88 mcg PO DAILY 04/21/17 07/01/20 Multivitamins, Thera [Multivitamin 1 tab PO DAILY 04/21/17 07/01/20 (formulary)] Pravastatin Sodium [Pravachol] 20 mg PO HS 04/21/17 07/01/20 Vit C/E/Zn/Coppr/Lutein/Zeaxan 1 cap PO BID 04/21/17 07/01/20 [Preservision Areds 2 Softgel] lisinopriL [Prinivil] 5 mg PO DAILY 04/21/17 07/01/20 metFORMIN HCL [Glucophage] 850 mg PO BID 04/21/17 07/01/20 ALPRAZolam [Xanax] 0.25 mg PO BID PRN 07/01/20 07/01/20 Ferrous Sulfate [Feosol] 325 mg PO DAILY 07/01/20 07/01/20 Pantoprazole [Protonix] 40 mg PO DAILY 07/01/20 07/01/20 Semaglutide [Ozempic] 1 mg SQ SA 07/01/20 07/01/20 Allergies Allergy/AdvReac Type Severity Reaction Status Date / Time No Known Allergies Allergy Verified 07/01/20 20:52 Review of Systems ROS Statement: Those systems with pertinent positive or pertinent negative responses have been documented in the HPI. ROS Other: All systems not noted in ROS Statement are negative. Past Medical History Past Medical History: Diabetes Mellitus Additional Past Medical History / Comment(s): History of duodenal ulcer over 20 years ago. History of Any Multi-Drug Resistant Organisms: None Reported Past Surgical History: Heart Catheterization Additional Past Surgical History / Comment(s): ear implant Past Anesthesia/Blood Transfusion Reactions: No Reported Reaction Past Psychological History: No Psychological Hx Reported Past Alcohol Use History: Occasional Past Drug Use History: None Reported - Past Family History Mother Additional Family Medical History / Comment(s): Cancer General Exam Limitations: no limitations Course Vital Signs 07/01/20 07/01/20 07/01/20 18:59 19:45 21:16 Temperature 97.9 F Pulse Rate 104 H 90 77 Respiratory 18 16 16 Rate Blood Pressure 108/69 107/65 102/65 O2 Sat by Pulse 98 98 98 Oximetry Medical Decision Making - Lab Data Result diagrams: 07/01/20 21:00 07/01/20 19:26 Lab Results 07/01/20 07/01/20 07/01/20 Range/Units 19:26 19:26 19:45 WBC (3.8-10.6) k/uL RBC (3.80-5.40) m/uL Hgb (11.4-16.0) gm/dL Hct (34.0-46.0) % MCV (80.0-100.0) fL MCH (25.0-35.0) pg MCHC (31.0-37.0) g/dL RDW (11.5-15.5) % Plt Count (150-450) k/uL Neutrophils % % Lymphocytes % % Monocytes % % Eosinophils % % Basophils % % Neutrophils # (1.3-7.7) k/uL Lymphocytes # (1.0-4.8) k/uL Monocytes # (0-1.0) k/uL Eosinophils # (0-0.7) k/uL Basophils # (0-0.2) k/uL Sodium 136 L (137-145) mmol/L Potassium 5.1 (3.5-5.1) mmol/L Chloride 103 (98-107) mmol/L Carbon Dioxide 25 (22-30) mmol/L Anion Gap 8 mmol/L BUN 38 H (7-17) mg/dL Creatinine 0.44 L (0.52-1.04) mg/dL Est GFR (CKD-EPI)AfAm >90 (>60 ml/min/1.73 sqM) Est GFR (CKD-EPI)NonAf >90 (>60 ml/min/1.73 sqM) Glucose 123 H (74-99) mg/dL Calcium 10.0 (8.4-10.2) mg/dL Total Bilirubin 1.1 (0.2-1.3) mg/dL AST 38 H (14-36) U/L ALT 20 (4-34) U/L Alkaline Phosphatase 43 (38-126) U/L Total Protein 7.4 (6.3-8.2) g/dL Albumin 4.6 (3.5-5.0) g/dL Stool Occult Blood Negative (Negative) Blood Type O Negative Blood Type Recheck O Neg Bld Type Recheck Status No Antibody Screen NEGATIVE Spec Expiration Date 07/04/2020 - 232507/01/20 Range/Units 21:00 WBC 4.5 (3.8-10.6) k/uL RBC 3.12 L (3.80-5.40) m/uL Hgb 9.7 L (11.4-16.0) gm/dL Hct 28.7 L (34.0-46.0) % MCV 92.1 (80.0-100.0) fL MCH 31.0 (25.0-35.0) pg MCHC 33.7 (31.0-37.0) g/dL RDW 12.1 (11.5-15.5) % Plt Count 114 L (150-450) k/uL Neutrophils % 66 % Lymphocytes % 24 % Monocytes % 5 % Eosinophils % 2 % Basophils % 0 % Neutrophils # 3.0 (1.3-7.7) k/uL Lymphocytes # 1.1 (1.0-4.8) k/uL Monocytes # 0.2 (0-1.0) k/uL Eosinophils # 0.1 (0-0.7) k/uL Basophils # 0.0 (0-0.2) k/uL Sodium (137-145) mmol/L Potassium (3.5-5.1) mmol/L Chloride (98-107) mmol/L Carbon Dioxide (22-30) mmol/L Anion Gap mmol/L BUN (7-17) mg/dL Creatinine (0.52-1.04) mg/dL Est GFR (CKD-EPI)AfAm (>60 ml/min/1.73 sqM) Est GFR (CKD-EPI)NonAf (>60 ml/min/1.73 sqM) Glucose (74-99) mg/dL Calcium (8.4-10.2) mg/dL Total Bilirubin (0.2-1.3) mg/dL AST (14-36) U/L ALT (4-34) U/L Alkaline Phosphatase (38-126) U/L Total Protein (6.3-8.2) g/dL Albumin (3.5-5.0) g/dL Stool Occult Blood (Negative) Blood Type Blood Type Recheck Bld Type Recheck Status Antibody Screen Spec Expiration Date Disposition Clinical Impression: GI bleed Disposition: ADMITTED IP TO THIS [facility] Condition: Fair Referrals: Daphne Waite MD [Primary Care Provider] - 1-2 days Decision Time: 21:43
[2020-07-01] MEDS ORDERED: ONDANSETRON 4 MG/2 ML VIAL IVP STA (19:44)
[2020-07-01 20:09] LABS: ALT 20 U/L (4-34); AST 38 U/L (14-36); African American GFR (CKD) >90 (>60 ml/min/1.73 sqM); Albumin 4.6 g/dL (3.5-5.0); Alkaline Phosphatase 43 U/L (38-126); Anion Gap 8 mmol/L; Blood Urea Nitrogen 38 mg/dL (7-17); Carbon Dioxide 25 mmol/L (22-30); Chloride 103 mmol/L (98-107); Glucose 123 mg/dL (74-99); Non-African American GFR(CKD) >90 (>60 ml/min/1.73 sqM); Potassium 5.1 mmol/L (3.5-5.1); Sodium 136 mmol/L (137-145); Total Bilirubin 1.1 mg/dL (0.2-1.3); Total Protein 7.4 g/dL (6.3-8.2)
[2020-07-01 21:14] LABS: Basophils % (A) 0 %; Eosinophils # (A) 0.1 k/uL (0-0.7); Eosinophils % (A) 2 %; HCT 28.7 % (34.0-46.0); HGB 9.7 gm/dL (11.4-16.0); Lymphocytes # (A) 1.1 k/uL (1.0-4.8); Lymphocytes % (A) 24 %; MCHC 33.7 g/dL (31.0-37.0); MCV 92.1 fL (80.0-100.0); Mean Platelet Volume 9.2; Monocytes # (A) 0.2 k/uL (0-1.0); Monocytes % (A) 5 %; Neutrophils % (A) 66 %; Platelet Count 114 k/uL (150-450); RBC 3.12 m/uL (3.80-5.40); RDW 12.1 % (11.5-15.5); WBC 4.5 k/uL (3.8-10.6)
[2020-07-01] MEDS ORDERED: NALOXONE 0.4 MG/ML 1 ML VIAL IV PRN (21:38)
[2020-07-01 21:49] LABS: INR 1.2 (<1.2); Prothrombin Time 11.8 sec (9.0-12.0)
[2020-07-01] MEDS: SODIUM CHLORIDE 0.9% 1,000 ML IV SCH (22:01)
[2020-07-01 22:54] LABS: Glucose,Whole Blood 121 mg/dL (75-99)
[2020-07-02] MEDS ORDERED: ONDANSETRON 4 MG/2 ML VIAL IVP PRN (00:52)
[2020-07-02 06:20] LABS: HCT 27.4 % (34.0-46.0); HGB 9.2 gm/dL (11.4-16.0); MCH 31.3 pg (25.0-35.0); MCHC 33.5 g/dL (31.0-37.0); MCV 93.6 fL (80.0-100.0); Mean Platelet Volume 9.6; Platelet Count 129 k/uL (150-450); RBC 2.93 m/uL (3.80-5.40); RDW 12.2 % (11.5-15.5); WBC 6.5 k/uL (3.8-10.6)
[2020-07-02 06:21] LABS: Glucose,Whole Blood 71 mg/dL (75-99)
[2020-07-02 06:29] LABS: Sodium 139 mmol/L (137-145)
[2020-07-02 06:31] LABS: African American GFR (CKD) >90 (>60 ml/min/1.73 sqM); Anion Gap 3 mmol/L; Blood Urea Nitrogen 35 mg/dL (7-17); Carbon Dioxide 29 mmol/L (22-30); Chloride 107 mmol/L (98-107); Glucose 72 mg/dL (74-99); Non-African American GFR(CKD) >90 (>60 ml/min/1.73 sqM); Potassium 4.3 mmol/L (3.5-5.1)
[2020-07-02] MEDS ORDERED: PANTOPRAZOLE 40 MG/10 ML VIAL IV SCH (09:00)
[2020-07-02] MEDS: SODIUM CHLORIDE 0.9% 1,000 ML IV SCH ×2 (09:13→22:08)
[2020-07-02] MEDS: PANTOPRAZOLE 40 MG/10 ML VIAL IV SCH ×2 (09:13→22:08)
[2020-07-02] MEDS ORDERED: NALOXONE 0.4 MG/ML 1 ML VIAL IV PRN (09:18)
[2020-07-02] MEDS: ACETAMINOPHEN TAB 325 MG TAB PO PRN ×2 (10:34→16:50)
[2020-07-02] MEDS ORDERED: LIDOCAINE 1% (10MG/ML) FOR IV START INTRADERMA PRN (11:15)
[2020-07-02 11:31] LABS: Glucose,Whole Blood 86 mg/dL (75-99)
[2020-07-02] MEDS ORDERED: ALPRAZolam 0.25 MG TAB PO PRN (13:12)
[2020-07-02] MEDS: LACTATED RINGERS 1,000 ML IV SCH (15:06)
[2020-07-02] MEDS: LEVOTHYROXINE 88 MCG TAB PO SCH (15:06)
[2020-07-02] MEDS ORDERED: SIMETHICONE 80 MG CHEWABLE PO PRN (16:32)
[2020-07-02 16:40] LABS: Glucose,Whole Blood 125 mg/dL (75-99)
--- NOTE | 2020-07-02 17:12 | P.HPIM ---
History of Present Illness H&P Date: 07/02/20 Yeimi Pierce, he is a 64-year-old female who presented to [facility] emergency room with a chief complaint of coffee-ground emesis twice she was evaluated in the emergency room, her hemoglobin was 9.7, she was started on IV Protonix and was admitted to medical floor gastroenterology consultation was requested. Patient had similar presentation 3 years ago, she had the bleeding a joaquin in the duodenal bulb and was treated with argon plasma coagulation on 04/22/2017 at that time she had duodenal ulceration and multiple duodenal bulb angiectasis. Patient has been doing well without any evidence of bleeding for the last 3 years until recently. Her hemoglobin has been stable until this admission. On review of system patient denies any other symptoms there is no fever or chills no headache or dizziness no chest pain no shortness of breath no cough no nausea or vomiting no abdominal pain no diarrhea no burning with urination no frequency or urgency and no hematuria. Past Medical History Past Medical History: Diabetes Mellitus, GI Bleed, Thyroid Disorder Additional Past Medical History / Comment(s): History of duodenal ulcer over 20 years ago. History of Any Multi-Drug Resistant Organisms: None Reported Past Surgical History: Heart Catheterization, Hysterectomy Additional Past Surgical History / Comment(s): ear implant Past Anesthesia/Blood Transfusion Reactions: No Reported Reaction Past Psychological History: No Psychological Hx Reported Smoking Status: Former smoker Past Alcohol Use History: Occasional Past Drug Use History: None Reported - Past Family History Mother Additional Family Medical History / Comment(s): Cancer Medications and Allergies Home Medications Medication Instructions Recorded Confirmed Type Levothyroxine Sodium [Synthroid] 88 mcg PO DAILY 04/21/17 07/01/20 History Multivitamins, Thera [Multivitamin 1 tab PO DAILY 04/21/17 07/01/20 History (formulary)] Pravastatin Sodium [Pravachol] 20 mg PO HS 04/21/17 07/01/20 History Vit C/E/Zn/Coppr/Lutein/Zeaxan 1 cap PO BID 04/21/17 07/01/20 History [Preservision Areds 2 Softgel] lisinopriL [Prinivil] 5 mg PO DAILY 04/21/17 07/01/20 History metFORMIN HCL [Glucophage] 850 mg PO BID 04/21/17 07/01/20 History ALPRAZolam [Xanax] 0.25 mg PO BID PRN 07/01/20 07/01/20 History Ferrous Sulfate [Feosol] 325 mg PO DAILY 07/01/20 07/01/20 History Pantoprazole [Protonix] 40 mg PO DAILY 07/01/20 07/01/20 History Semaglutide [Ozempic] 1 mg SQ SA 07/01/20 07/01/20 History Allergies Allergy/AdvReac Type Severity Reaction Status Date / Time No Known Allergies Allergy Verified 07/01/20 20:52 Physical Exam Vitals: Vital Signs Temp Pulse Pulse Resp BP BP Pulse Ox 07/02/20 08:00 98.4 F 76 18 103/59 99 07/02/20 04:00 66 16 95/61 97 07/01/20 23:52 99.2 F 74 16 112/67 99 07/01/20 21:16 77 16 102/65 98 07/01/20 19:45 90 16 107/65 98 07/01/20 18:59 97.9 F 104 H 18 108/69 98 Intake and Output 07/01/20 07/02/20 07/02/20 22:59 06:59 14:59 Intake Total 600 Balance 600 Intake: Intake, IV Titration 600 Amount Sodium Chloride 0.9% 1, 600 000 ml @ 100 mls/hr IV . Q10H [facility] Rx#:[id number] Other: Voiding Method Toilet # Voids 1 1 1 Weight 61.235 kg 62.1 kg In general patient is alert and oriented 3 in no apparent distress HEENT head normocephalic and atraumatic Neck is supple no JVD no goiter no lymphadenopathy Chest exam reveals a few scattered rhonchi no wheezing Cardiac exam reveals regular heart sounds S1 and S2 no gallops no murmurs Abdomen is soft nontender no organomegaly was normal bowel sounds Extremity exam reveals no edema no cyanosis or clubbing Neurological examination reveals no gross focal deficits Results CBC & Chem 7: 07/02/20 05:38 07/02/20 05:38 Labs: Abnormal Lab Results - Last 24 Hours (Table) 07/01/20 07/01/20 07/01/20 Range/Units 19:26 21:00 21:00 RBC 3.12 L (3.80-5.40) m/uL Hgb 9.7 L (11.4-16.0) gm/dL Hct 28.7 L (34.0-46.0) % Plt Count 114 L (150-450) k/uL INR 1.2 H (<1.2) APTT 20.0 L (22.0-30.0) sec Sodium 136 L (137-145) mmol/L BUN 38 H (7-17) mg/dL Creatinine 0.44 L (0.52-1.04) mg/dL Glucose 123 H (74-99) mg/dL POC Glucose (mg/dL) (75-99) mg/dL AST 38 H (14-36) U/L 07/01/20 07/02/20 07/02/20 Range/Units 22:52 05:38 05:38 RBC 2.93 L (3.80-5.40) m/uL Hgb 9.2 L (11.4-16.0) gm/dL Hct 27.4 L (34.0-46.0) % Plt Count 129 L (150-450) k/uL INR (<1.2) APTT (22.0-30.0) sec Sodium (137-145) mmol/L BUN 35 H (7-17) mg/dL Creatinine (0.52-1.04) mg/dL Glucose 72 L (74-99) mg/dL POC Glucose (mg/dL) 121 H (75-99) mg/dL AST (14-36) U/L 07/02/20 Range/Units 06:20 RBC (3.80-5.40) m/uL Hgb (11.4-16.0) gm/dL Hct (34.0-46.0) % Plt Count (150-450) k/uL INR (<1.2) APTT (22.0-30.0) sec Sodium (137-145) mmol/L BUN (7-17) mg/dL Creatinine (0.52-1.04) mg/dL Glucose (74-99) mg/dL POC Glucose (mg/dL) 71 L (75-99) mg/dL AST (14-36) U/L Thrombosis Risk Factor Assmnt - Choose All That Apply Any of the Below Risk Factors Present?: No Other Risk Factors: Yes Each Risk Factor Represents 2 Points: Age 61-74 years Other congenital or acquired thrombophilia - If yes, enter type in comment: No Thrombosis Risk Factor Assessment Total Risk Factor Score: 2 Thrombosis Risk Factor Assessment Level: Low Risk Assessment and Plan Plan: 1. 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 Gastroenterology consult requested 2. Acute blood loss anemia, will monitor hemoglobin closely 3. Underlying history of hypothyroidism 4. Underlying history of diabetes mellitus type 2 At this time patient was started on IV Protonix awaiting input from gastroenterology Follow closely
[2020-07-02] MEDS: ONDANSETRON 4 MG/2 ML VIAL IVP PRN (19:03)
[2020-07-02 19:12] LABS: Glucose,Whole Blood 109 mg/dL (75-99)
[2020-07-02 20:18] LABS: Basophils % (A) 1 %; Eosinophils # (A) 0.2 k/uL (0-0.7); Eosinophils % (A) 3 %; Lymphocytes # (A) 2.1 k/uL (1.0-4.8); Lymphocytes % (A) 33 %; MCH 31.4 pg (25.0-35.0); MCHC 33.2 g/dL (31.0-37.0); MCV 94.5 fL (80.0-100.0); Mean Platelet Volume 9.8; Monocytes # (A) 0.3 k/uL (0-1.0); Monocytes % (A) 5 %; Neutrophils # (A) 3.4 k/uL (1.3-7.7); Neutrophils % (A) 55 %; Platelet Count 136 k/uL (150-450); RBC 2.33 m/uL (3.80-5.40); RDW 12.3 % (11.5-15.5); WBC 6.1 k/uL (3.8-10.6)
[2020-07-02 20:19] LABS: HGB 7.3 gm/dL (11.4-16.0)
[2020-07-02 20:50] LABS: Glucose,Whole Blood 164 mg/dL (75-99)
[2020-07-02] MEDS ORDERED: metFORMIN 850 MG TAB PO SCH (21:00)
[2020-07-02] MEDS: VIT A,C & E-LUTEIN-MINERALS 1 EACH TAB PO SCH (22:08)
[2020-07-02] MEDS: PRAVASTATIN SODIUM 20 MG TAB PO SCH (22:08)
[2020-07-03] MEDS: SODIUM CHLORIDE 0.9% 1,000 ML IV SCH ×4 (03:23→23:22)
[2020-07-03] MEDS: LEVOTHYROXINE 88 MCG TAB PO SCH (04:58)
[2020-07-03 06:25] LABS: Glucose,Whole Blood 86 mg/dL (75-99)
[2020-07-03 06:51] LABS: Basophils % (A) 0 %; Eosinophils # (A) 0.2 k/uL (0-0.7); Eosinophils % (A) 3 %; Lymphocytes # (A) 3.1 k/uL (1.0-4.8); Lymphocytes % (A) 36 %; MCH 31.4 pg (25.0-35.0); MCV 95.1 fL (80.0-100.0); Mean Platelet Volume 9.1; Monocytes # (A) 0.5 k/uL (0-1.0); Monocytes % (A) 6 %; Neutrophils # (A) 4.4 k/uL (1.3-7.7); Neutrophils % (A) 52 %; Platelet Count 139 k/uL (150-450); RBC 1.82 m/uL (3.80-5.40); RDW 12.5 % (11.5-15.5); WBC 8.5 k/uL (3.8-10.6)
[2020-07-03] MEDS ORDERED: SODIUM CHLORIDE 0.9% 1,000 ML IV ONE (06:56)
[2020-07-03 07:01] LABS: African American GFR (CKD) >90 (>60 ml/min/1.73 sqM); Anion Gap 3 mmol/L; Blood Urea Nitrogen 31 mg/dL (7-17); Calcium 7.6 mg/dL (8.4-10.2); Carbon Dioxide 22 mmol/L (22-30); Chloride 112 mmol/L (98-107); Glucose 157 mg/dL (74-99); Non-African American GFR(CKD) >90 (>60 ml/min/1.73 sqM); Potassium 4.2 mmol/L (3.5-5.1); Sodium 137 mmol/L (137-145)
[2020-07-03 07:02] LABS: HGB 5.7 gm/dL (11.4-16.0)
[2020-07-03 07:03] LABS: HCT 17.3 % (34.0-46.0)
[2020-07-03 07:57] LABS: Glucose,Whole Blood 110 mg/dL (75-99)
--- NOTE | 2020-07-03 08:04 | P.CONS ---
History of Present Illness - Reason for Consult Consult date: 07/02/20 Coffee ground emesis Requesting physician: Daphne Waite - Chief Complaint Vomiting blood - History of Present Illness 64-year-old female with a medical history significant for diabetes mellitus, prior upper GI bleed, hypothyroidism who presented to the hospital due to concerns over black-colored emesis. The patient reports multiple episodes of coffee-ground emesis. She does have a prior history of anemia and had an EGD in 2017 with findings of duodenal telangiectasias as well as a hiatal hernia and gastritis, with the telangiectasias treated with argon plasma coagulation therapy. Hemoglobin was found to be 9.2 on presentation. She did have occult testing of her stool which was negative for occult blood. Other laboratory evaluation significant for WBC of 6.5, platelet count 229,000, total bilirubin 1.1, alkaline phosphatase 43, AST 38 and ALT 20. She denies any NSAID use and will take Tylenol as needed for pain. Currently denying any abdominal pain. Review of Systems REVIEW OF SYSTEMS: CONSTITUTIONAL: Denies any fevers, chills, weight change or fatigue. CARDIOVASCULAR: Denies any chest pain, palpitations high or low blood pressures RESPIRATORY: Denies any shortness of breath, hemoptysis or cough. GENITOURINARY: No dysuria or hematuria. MUSCULOSKELETAL: No weakness reported. SKIN: Denies any new rashes or lesions, jaundice or pallor. PSYCHIATRIC: Denies any depression or anxiety, marijuana abuse. NEUROLOGY: Denies headache, denies any new focal deficits. EARS/NOSE/THROAT: No recent hearing change, congestion, nasal discharge or sore throat. EYES: No pain in eyes, discharge or change in vision. GASTROINTESTINAL: As per HPI. Past Medical History Past Medical History: Diabetes Mellitus, GI Bleed, Thyroid Disorder Additional Past Medical History / Comment(s): History of duodenal ulcer over 20 years ago. History of Any Multi-Drug Resistant Organisms: None Reported Past Surgical History: Heart Catheterization, Hysterectomy Additional Past Surgical History / Comment(s): ear implant Past Anesthesia/Blood Transfusion Reactions: No Reported Reaction Past Psychological History: No Psychological Hx Reported Smoking Status: Former smoker Past Alcohol Use History: Occasional Past Drug Use History: None Reported - Past Family History Mother Additional Family Medical History / Comment(s): Cancer Medications and Allergies Home Medications Medication Instructions Recorded Confirmed Type Levothyroxine Sodium [Synthroid] 88 mcg PO DAILY 04/21/17 07/01/20 History Multivitamins, Thera [Multivitamin 1 tab PO DAILY 04/21/17 07/01/20 History (formulary)] Pravastatin Sodium [Pravachol] 20 mg PO HS 04/21/17 07/01/20 History Vit C/E/Zn/Coppr/Lutein/Zeaxan 1 cap PO BID 04/21/17 07/01/20 History [Preservision Areds 2 Softgel] lisinopriL [Prinivil] 5 mg PO DAILY 04/21/17 07/01/20 History metFORMIN HCL [Glucophage] 850 mg PO BID 04/21/17 07/01/20 History ALPRAZolam [Xanax] 0.25 mg PO BID PRN 07/01/20 07/01/20 History Ferrous Sulfate [Feosol] 325 mg PO DAILY 07/01/20 07/01/20 History Pantoprazole [Protonix] 40 mg PO DAILY 07/01/20 07/01/20 History Semaglutide [Ozempic] 1 mg SQ SA 07/01/20 07/01/20 History Allergies Allergy/AdvReac Type Severity Reaction Status Date / Time No Known Allergies Allergy Verified 07/01/20 20:52 Physical Exam Vitals: Vital Signs Temp Pulse Pulse Resp BP BP Pulse Ox 07/02/20 08:00 98.4 F 76 18 103/59 99 07/02/20 04:00 66 16 95/61 97 07/01/20 23:52 99.2 F 74 16 112/67 99 07/01/20 21:16 77 16 102/65 98 07/01/20 19:45 90 16 107/65 98 07/01/20 18:59 97.9 F 104 H 18 108/69 98 Intake and Output 07/02/20 07/02/20 07/02/20 06:59 14:59 22:59 Intake Total 600 Balance 600 Intake: Intake, IV Titration 600 Amount Sodium Chloride 0.9% 1, 600 000 ml @ 100 mls/hr IV . Q10H [facility] Rx#:[id number] Other: Voiding Method Toilet # Voids 1 1 Weight 62.1 kg On physical examination, patient appears comfortable in no apparent distress. HEAD: Normocephalic, atraumatic. EYES: No scleral icterus. No conjunctival injection. MOUTH: No lesions, tongue midline. NECK: Trachea midline, no gross abnormalities. CHEST: Clear to auscultation with no wheezing or rhonchi appreciated. HEART: Regular rate and rhythm. ABDOMEN: Soft. Bowel sounds are positive. No organomegaly. No guarding or rigidity. EXTREMITIES: No pedal edema. SKIN: No rashes, no jaundice. NEUROLOGIC: Alert and oriented x3. No focal deficits. Results CBC & Chem 7: 07/03/20 06:41 07/03/20 06:40 Labs: Abnormal Lab Results - Last 24 Hours (Table) 07/01/20 07/01/20 07/01/20 Range/Units 19:26 21:00 21:00 RBC 3.12 L (3.80-5.40) m/uL Hgb 9.7 L (11.4-16.0) gm/dL Hct 28.7 L (34.0-46.0) % Plt Count 114 L (150-450) k/uL INR 1.2 H (<1.2) APTT 20.0 L (22.0-30.0) sec Sodium 136 L (137-145) mmol/L BUN 38 H (7-17) mg/dL Creatinine 0.44 L (0.52-1.04) mg/dL Glucose 123 H (74-99) mg/dL POC Glucose (mg/dL) (75-99) mg/dL AST 38 H (14-36) U/L 07/01/20 07/02/20 07/02/20 Range/Units 22:52 05:38 05:38 RBC 2.93 L (3.80-5.40) m/uL Hgb 9.2 L (11.4-16.0) gm/dL Hct 27.4 L (34.0-46.0) % Plt Count 129 L (150-450) k/uL INR (<1.2) APTT (22.0-30.0) sec Sodium (137-145) mmol/L BUN 35 H (7-17) mg/dL Creatinine (0.52-1.04) mg/dL Glucose 72 L (74-99) mg/dL POC Glucose (mg/dL) 121 H (75-99) mg/dL AST (14-36) U/L 07/02/20 Range/Units 06:20 RBC (3.80-5.40) m/uL Hgb (11.4-16.0) gm/dL Hct (34.0-46.0) % Plt Count (150-450) k/uL INR (<1.2) APTT (22.0-30.0) sec Sodium (137-145) mmol/L BUN (7-17) mg/dL Creatinine (0.52-1.04) mg/dL Glucose (74-99) mg/dL POC Glucose (mg/dL) 71 L (75-99) mg/dL AST (14-36) U/L Assessment and Plan (1) Acute GI bleeding Narrative/Plan: 64-year-old female presenting with concerns over coffee-ground emesis. Prior GI bleed in 2017 with EGD showing gastritis, hiatal hernia and duodenal telan giectasias which were treated with argon plasma coagulation therapy. Unclear etiology of symptoms with differential including peptic ulcer disease, recurrence of angioectasias of the small bowel, gastritis, esophagitis, or other etiology. Current Visit: No Status: Acute Code(s): K92.2 - GASTROINTESTINAL HEMORRHAGE, UNSPECIFIED SNOMED Code(s): 43878795 (2) Acute blood loss anemia Current Visit: No Status: Acute Code(s): D62 - ACUTE POSTHEMORRHAGIC ANEMIA SNOMED Code(s): 731469336 (3) Coffee ground emesis Current Visit: No Status: Acute Code(s): K92.0 - HEMATEMESIS SNOMED Code(s): 19253789 Plan: Supportive care Okay for liquid diet Continue to monitor hemoglobin and hematocrit and transfuse as needed Continue to hold anticoagulation and antiplatelet therapy Avoid NSAID therapy Continue Protonix twice daily N.p.o. after midnight and plan for EGD tomorrow for further evaluation Thank you for allowing us to participate in the care of the patient
[2020-07-03] MEDS: PANTOPRAZOLE 40 MG/10 ML VIAL IV SCH ×2 (08:21→20:58)
[2020-07-03] MEDS: MULTIVITAMINS, THERA 1 EACH TAB PO SCH (08:53)
[2020-07-03] MEDS: VIT A,C & E-LUTEIN-MINERALS 1 EACH TAB PO SCH ×2 (08:53→20:58)
[2020-07-03] MEDS ORDERED: PANTOPRAZOLE 40 MG TABLET PO SCH (09:00)
[2020-07-03] MEDS ORDERED: lisinopriL 5 MG TAB PO SCH (09:00)
--- NOTE | 2020-07-03 11:26 | P.CNPUL ---
History of Present Illness Consult date: 07/03/20 Chief complaint: GI bleed History of present illness: This is a 64-year-old here patient got transferred this morning to the intensive care unit after she had a large melanotic stool on the floor the patient became hypotensive with a systolic blood pressure dropping down to the 70s. She is known to be diabetic and she has hypothyroidism and she has prior history of GI bleed. The patient apparently was having multiple episodes of emesis at home and she was producing coffee-ground emesis. She also had melanotic stools. Her last EGD was done in 2017 and the patient was found to have duodenal telangiectasias as well as hiatal hernia and gastritis and at that time the patient had argon plasma coagulation therapy to the telangiectasias. The patient was found to have a hemoglobin of 9.2 at the time of admission. Following this bleeding this morning the hemoglobin dropped down to 5.7 and GI is aware of the situation and the patient was given an the first units of packed RBC and 2 L of IV fluids. A second unit is to follow. Meanwhile the patient is also normal saline which is running at the rate of 100 mL an hour. Blood pressures improved. She is resting comfortably in bed. She looks a bit pale. No abdominal distention or abdominal pain. Platelet count is at 139. Correlation profile at time of admission was within normal limits. She doesn't take any form of antiplatelet agents or anticoagulants. She does not have h istory of alcoholism. She denies take any form of nonsteroidal anti- inflammatory medication. Review of Systems Constitutional: Reports fatigue, Reports weight loss Eyes: denies as per HPI, denies blurred vision, denies bulging eye, denies decreased vision, denies diplopia, denies discharge, denies dry eye, denies irritation, denies itching, denies pain, denies photophobia, denies loss of peripheral vision, denies loss of vision, denies tunnel vision/blind spots Ears: deny: decreased hearing, ear discharge, earache, tinnitus Ears, nose, mouth and throat: Denies headache, Denies sore throat Breasts: absent: as per HPI, change in shape, gynecomastia, masses, nipple discharge, pain, skin changes, swelling Cardiovascular: Denies chest pain, Denies shortness of breath Respiratory: Denies cough Gastrointestinal: Reports coffee ground emesis, Reports melena, Reports vomiting Genitourinary: Reports as per HPI Menstruation: Reports as per HPI Musculoskeletal: Reports as per HPI Musculoskeletal: absent: ankle pain, ankle stiffness, ankle swelling Integumentary: Reports as per HPI Neurological: Reports as per HPI, Reports weakness Psychiatric: Reports as per HPI Endocrine: Reports as per HPI Hematologic/Lymphatic: Reports as per HPI Allergic/Immunologic: Reports as per HPI Past Medical History Past Medical History: Diabetes Mellitus, GI Bleed, Thyroid Disorder Additional Past Medical History / Comment(s): History of duodenal ulcer over 20 years ago. History of Any Multi-Drug Resistant Organisms: None Reported Past Surgical History: Heart Catheterization, Hysterectomy Additional Past Surgical History / Comment(s): ear implant Past Anesthesia/Blood Transfusion Reactions: No Reported Reaction Past Psychological History: No Psychological Hx Reported Smoking Status: Former smoker Past Alcohol Use History: Occasional Past Drug Use History: None Reported - Past Family History Mother Additional Family Medical History / Comment(s): Cancer Medications and Allergies Home Medications Medication Instructions Recorded Confirmed Type Levothyroxine Sodium [Synthroid] 88 mcg PO DAILY 04/21/17 07/01/20 History Multivitamins, Thera [Multivitamin 1 tab PO DAILY 04/21/17 07/01/20 History (formulary)] Pravastatin Sodium [Pravachol] 20 mg PO HS 04/21/17 07/01/20 History Vit C/E/Zn/Coppr/Lutein/Zeaxan 1 cap PO BID 04/21/17 07/01/20 History [Preservision Areds 2 Softgel] lisinopriL [Prinivil] 5 mg PO DAILY 04/21/17 07/01/20 History metFORMIN HCL [Glucophage] 850 mg PO BID 04/21/17 07/01/20 History ALPRAZolam [Xanax] 0.25 mg PO BID PRN 07/01/20 07/01/20 History Ferrous Sulfate [Feosol] 325 mg PO DAILY 07/01/20 07/01/20 History Pantoprazole [Protonix] 40 mg PO DAILY 07/01/20 07/01/20 History Semaglutide [Ozempic] 1 mg SQ SA 07/01/20 07/01/20 History Allergies Allergy/AdvReac Type Severity Reaction Status Date / Time No Known Allergies Allergy Verified 07/01/20 20:52 Physical Exam Vitals: Vital Signs Temp Pulse Pulse Resp BP BP Pulse Ox 07/03/20 10:45 92 16 98/64 99 07/03/20 10:32 97.9 F 100 18 100/52 95 07/03/20 10:30 92 12 95/62 98 07/03/20 10:25 98.0 F 101 H 20 98/54 98 07/03/20 10:15 95 10 L 90/63 98 07/03/20 10:00 97.9 F 104 H 9 L 105/56 99 07/03/20 09:45 93 17 102/59 97 07/03/20 09:30 99 18 91/71 96 07/03/20 09:15 109 H 12 99/60 98 07/03/20 09:00 101 H 19 96 07/03/20 08:53 98.0 F 95 20 102/59 98 07/03/20 08:45 112 H 13 99/58 97 07/03/20 08:30 103 H 16 100/57 98 07/03/20 08:23 98.0 F 100 20 100/54 07/03/20 08:15 103 H 20 100/57 98 07/03/20 08:13 98.3 F 100 16 100/57 96 07/03/20 08:00 98.3 F 103 H 91 20 104/59 97 07/03/20 07:54 98 29 H 88 L 07/03/20 07:46 91 16 98/54 97 07/03/20 03:34 98.9 F 92 16 105/63 100 07/03/20 00:00 98.6 F 95 16 102/60 99 07/02/20 20:00 99.5 F 98 18 101/63 97 07/02/20 19:09 98.9 F 101 H 17 113/59 99 07/02/20 16:00 98.5 F 84 17 114/62 96 07/02/20 12:00 98.4 F 84 16 93/46 95 Intake and Output 07/02/20 07/03/20 07/03/20 22:59 06:59 14:59 Intake Total 400 240 710 Output Total 300 Balance 400 240 410 Intake: Intake, IV Titration 100 Amount Sodium Chloride 0.9% 1, 100 000 ml @ 100 mls/hr IV . Q10H [facility] Rx#:[id number] Oral 400 240 Blood Product 610 Rc Cpda-1 Unit 310 [id number] Rc Pheresis 2 As3 Unit 0 [id number] Output: Urine 300 Other: Voiding Method Toilet Bedpan # Voids 2 Weight 66.5 kg The patient appeared well nourished and normally developed. Vital signs as docu mented. Head exam is unremarkable. The patient is conjunctival pallor and there is no icterus. No scleral icterus or corneal arcus noted. Neck is without jugular venous distension, thyromegaly, or carotid bruits. Carotid upstrokes are brisk bilaterally. Lungs are clear to auscultation and percussion. Cardiac exam reveals the PMI to be normally sized and situated. Rhythm is regular. First and second heart sounds normal. No murmurs, rubs or gallops. Abdominal exam reveals normal bowel sounds, no masses, no organomegaly and no aortic enlargement. Extremities are nonedematous and both femoral and pedal pulses are normal.Examination of the skin revealed no evidence of significant rashes, suspicious appearing nevi or other concerning lesions.Neurologically, the patient is awake and alert and the patient does not have any focal neurological deficit. Cranial nerves are essentially intact. Results - Laboratory Findings CBC and BMP: 07/03/20 06:41 07/03/20 06:40 PT/INR, D-dimer PT 11.8 sec (9.0-12.0) 07/01/20 21:00 INR 1.2 (<1.2) H 07/01/20 21:00 Abnormal lab findings: Abnormal Labs 07/01/20 07/01/20 07/01/20 19:26 19:26 21:00 RBC 3.12 L Hgb 9.7 L Hct 28.7 L Plt Count 114 L INR APTT Sodium 136 L Chloride BUN 38 H Creatinine 0.44 L Glucose 123 H POC Glucose (mg/dL) Calcium AST 38 H Stool Occult Blood Crossmatch See Detail 07/01/20 07/01/20 07/02/20 21:00 22:52 05:38 RBC 2.93 L Hgb 9.2 L Hct 27.4 L Plt Count 129 L INR 1.2 H APTT 20.0 L Sodium Chloride BUN Creatinine Glucose POC Glucose (mg/dL) 121 H Calcium AST Stool Occult Blood Crossmatch 07/02/20 07/02/20 07/02/20 05:38 06:20 16:31 RBC Hgb Hct Plt Count INR APTT Sodium Chloride BUN 35 H Creatinine Glucose 72 L POC Glucose (mg/dL) 71 L 125 H Calcium AST Stool Occult Blood Crossmatch 07/02/20 07/02/20 07/02/20 19:01 19:53 20:33 RBC 2.33 L Hgb 7.3 L D Hct 22.0 L Plt Count 136 L INR APTT Sodium Chloride BUN Creatinine Glucose POC Glucose (mg/dL) 109 H 164 H Calcium AST Stool Occult Blood Crossmatch 07/03/20 07/03/20 07/03/20 06:40 06:41 06:46 RBC 1.82 L Hgb 5.7 L* D Hct 17.3 L* Plt Count 139 L INR APTT Sodium Chloride 112 H BUN 31 H Creatinine 0.50 L Glucose 157 H POC Glucose (mg/dL) Calcium 7.6 L AST Stool Occult Blood Positive H Crossmatch 07/03/20 07:55 RBC Hgb Hct Plt Count INR APTT Sodium Chloride BUN Creatinine Glucose POC Glucose (mg/dL) 110 H Calcium AST Stool Occult Blood Crossmatch Assessment and Plan Plan: 1 acute upper GI bleeding with significant drop in hemoglobin and hemodynamics instability. The patient is transferred to the intensive care unit, receiving a total of 2 units of packed RBC in addition to IV fluids. Hemodynamically stable for now. Suspect recurrent GI bleed probably related to previously observed duodenal telangiectasias. 2 blood loss anemia, with a drop of hemoglobin down to 5.7 and the patient is receiving 2 units of packed RBC 3 previous history of GI bleed and prior GI bleeding occurred in 2017 with EGD showing gastritis, hiatal hernia and duodenal telangiectasias 4 hypovolemic shock secondary to GI bleed, improved with fluid resuscitation and the patient is normotensive for now 5 diabetes mellitus 6 hypothyroidism Plan Keep the patient nothing by mouth for now IV fluids at 100 mL an hour of normal saline Give the second unit of packed RBC Monitor hemoglobin IV Protonix GI is aware the patient is going to undergo a EGD today Hold oral medications including lisinopril and metformin. Give the patient ICU for now.
[2020-07-03] MEDS ORDERED: PROPOFOL 10 MG/ML 20 ML VIAL IV ONE (13:04)
[2020-07-03] MEDS ORDERED: LIDOCAINE 1% INJ 10MG/ML (20 ML MDV) ONE (13:04)
[2020-07-03] MEDS ORDERED: IV FLUID CONTINUATION 1,000 ML IV ONE (13:05)
[2020-07-03] MEDS ORDERED: EPINEPHrine 10 ML SYRINGE (0.1 MG/ML) MISCELLANE ONE (13:30)
--- NOTE | 2020-07-03 13:51 | P.PCN ---
Date of Procedure: 07/03/20 Description of Procedure: BRIEF HISTORY: 64-year-old female with a medical history significant for diabetes mellitus, prior upper GI bleed, hypothyroidism who presented to the hospital due to concerns over black-colored emesis. The patient reports multiple episodes of coffee-ground emesis. She does have a prior history of anemia and had an EGD in 2017 with findings of duodenal telangiectasias as well as a hiatal hernia and gastritis, with the telangiectasias treated with argon plasma coagulation therapy. Hemoglobin was found to be 9.2 on presentation. She did have occult testing of her stool which was negative for occult blood. Other laboratory evaluation significant for WBC of 6.5, platelet count 229,000, total bilirubin 1.1, alkaline phosphatase 43, AST 38 and ALT 20. She denies any NSAID use and will take Tylenol as needed for pain. Currently denying any abdominal pain.. PROCEDURE PERFORMED: Esophagogastroduodenoscopy with epinephrine injection and gold probe ablation. PREOPERATIVE DIAGNOSIS: melena, anemia of acute blood loss. ESTIMATED BLOOD LOSS: Minimal. IV sedation per anesthesia. PROCEDURE: After informed consent was obtained, the patient was brought into the endoscopy unit. IV sedation was administered by Anesthesia under continuous monitoring. Initially the Olympus GIF-190 video endoscope was inserted into the mouth. Esophagus intubated without any difficulty. It was gradually advanced into the stomach and duodenum and carefully examined. The the second part of the duodenum appeared normal however, fresh blood was noted which was lavaged. No site of active bleeding and the second portion of the duodenum were seen. In the bulb more fresh blood was noted which was lavaged and an area of active oozing from a duodenal angioectasia was noted just past the pylorus in the duodenal bulb. The bleeding angioectasia was treated with gold probe ablation with hemostasis achieved. 7 mL of epinephrine were also injected at the site. The scope at this time was withdrawn to the stomach, adequately insufflated with air, and upon careful examination, mucosa of the antrum, body, cardia and the fundus appeared normal, with no old blood or active bleeding noted. The scope was then withdrawn into the esophagus. The GE junction was located at 38 cm from the incisors. The esophagus appeared normal. There were no erosions or ulcerations seen and the patient tolerated the procedure well. IMPRESSION: 1. Actively bleeding duodenal angioectasia seen in the bulb treated with gold probe ablation and epinephrine injection. 2. No old blood or active bleeding in the stomach, however fresh blood noted in the second portion of the duodenum and duodenal bulb from the angioectasia (treated as described as above). RECOMMENDATIONS: The findings of this examination were discussed with the patient and her . Okay for liquid diet. Continue to monitor hemoglobin and hematocrit and transfuse as needed. Continue ICU care. Continue PPI therapy. Avoid any anticoagulation or antiplatelet therapy at this time.
[2020-07-03] MEDS: ONDANSETRON 4 MG/2 ML VIAL IVP PRN (13:57)
[2020-07-03 14:31] LABS: Basophils % (A) 0 %; Eosinophils # (A) 0.2 k/uL (0-0.7); Eosinophils % (A) 2 %; HCT 26.6 % (34.0-46.0); Lymphocytes % (A) 22 %; MCH 30.6 pg (25.0-35.0); MCHC 33.9 g/dL (31.0-37.0); MCV 90.2 fL (80.0-100.0); Mean Platelet Volume 9.1; Monocytes # (A) 0.4 k/uL (0-1.0); Monocytes % (A) 4 %; Neutrophils # (A) 6.6 k/uL (1.3-7.7); Neutrophils % (A) 70 %; Platelet Count 129 k/uL (150-450); RBC 2.95 m/uL (3.80-5.40); RDW 14.5 % (11.5-15.5); WBC 9.5 k/uL (3.8-10.6)
[2020-07-03] MEDS: LACTATED RINGERS 1,000 ML IV SCH (15:43)
--- NOTE | 2020-07-03 16:58 | P.PN ---
Subjective Progress Note Date: 07/03/20 Yeimi Pierce, he is a 64-year-old female who presented to [facility] emergency room with a chief complaint of coffee-ground emesis twice she was evaluated in the emergency room, her hemoglobin was 9.7, she was started on IV Protonix and was admitted to medical floor gastroenterology consultation was requested. 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 Patient has been doing well without any evidence of bleeding for the last 3 years until recently. Her hemoglobin has been stable until this admission. On review of system patient denies any other symptoms there is no fever or chills no headache or dizziness no chest pain no shortness of breath no cough no nausea or vomiting no abdominal pain no diarrhea no burning with urination no frequency or urgency and no hematuria. On 07/03/2020 patient was seen and examined in the ICU, earlier this morning patient was found to have low blood pressure, she was given fluid bolus, she was having evidence of continuous bleeding, she was transferred to ICU hemoglobin was down to 5.7 she received red blood cell transfusion, EGD is scheduled for today, otherwise patient denies any complaints there is no fever or chills no headache or dizziness no chest pain no shortness of breath no cough no nausea or vomiting no abdominal pain no diarrhea and no urinary symptoms Objective - Vital Signs Vital signs: Vital Signs Temp 97.9 F 07/03/20 11:05 Pulse 100 07/03/20 11:05 Resp 18 07/03/20 11:05 BP 102/22 07/03/20 11:05 Pulse Ox 95 07/03/20 11:05 Intake & Output 07/02/20 07/03/20 07/03/20 18:59 06:59 18:59 Intake Total 400 240 710 Output Total 300 Balance 400 240 410 Weight 66.5 kg Intake: Intake, IV Titration 100 Amount Sodium Chloride 0.9% 1, 100 000 ml @ 100 mls/hr IV . Q10H [facility] Rx#:[id number] Oral 400 240 Blood Product 610 Rc Cpda-1 Unit 310 [id number] Rc Pheresis 2 As3 Unit 0 [id number] Output: Urine 300 Other: Voiding Method Toilet Bedpan # Voids 1 2 - Exam In general patient is alert and oriented 3 in no apparent distress HEENT head normocephalic and atraumatic Neck is supple no JVD no goiter no lymphadenopathy Chest exam reveals a few scattered rhonchi no wheezing Cardiac exam reveals regular heart sounds S1 and S2 no gallops no murmurs Abdomen is soft nontender no organomegaly was normal bowel sounds Extremity exam reveals no edema no cyanosis or clubbing Neurological examination reveals no gross focal deficits - Labs CBC & Chem 7: 07/03/20 14:08 07/03/20 06:40 Labs: Abnormal Lab Results - Last 24 Hours (Table) 07/01/20 07/02/20 07/02/20 Range/Units 19:26 16:31 19:01 RBC (3.80-5.40) m/uL Hgb (11.4-16.0) gm/dL Hct (34.0-46.0) % Plt Count (150-450) k/uL Chloride (98-107) mmol/L BUN (7-17) mg/dL Creatinine (0.52-1.04) mg/dL Glucose (74-99) mg/dL POC Glucose (mg/dL) 125 H 109 H (75-99) mg/dL Calcium (8.4-10.2) mg/dL Stool Occult Blood (Negative) Crossmatch See Detail 07/02/20 07/02/20 07/03/20 Range/Units 19:53 20:33 06:40 RBC 2.33 L (3.80-5.40) m/uL Hgb 7.3 L D (11.4-16.0) gm/dL Hct 22.0 L (34.0-46.0) % Plt Count 136 L (150-450) k/uL Chloride 112 H (98-107) mmol/L BUN 31 H (7-17) mg/dL Creatinine 0.50 L (0.52-1.04) mg/dL Glucose 157 H (74-99) mg/dL POC Glucose (mg/dL) 164 H (75-99) mg/dL Calcium 7.6 L (8.4-10.2) mg/dL Stool Occult Blood (Negative) Crossmatch 08/26/20 08/26/20 08/26/20 Range/Units 06:41 06:46 07:55 RBC 1.82 L (3.80-5.40) m/uL Hgb 5.7 L* D (11.4-16.0) gm/dL Hct 17.3 L* (34.0-46.0) % Plt Count 139 L (150-450) k/uL Chloride (98-107) mmol/L BUN (7-17) mg/dL Creatinine (0.52-1.04) mg/dL Glucose (74-99) mg/dL POC Glucose (mg/dL) 110 H (75-99) mg/dL Calcium (8.4-10.2) mg/dL Stool Occult Blood Positive H (Negative) Crossmatch Assessment and Plan Plan: 1. 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 Gastroenterology consult requested 2. Acute blood loss anemia, will monitor hemoglobin closely 3. Underlying history of hypothyroidism 4. Underlying history of diabetes mellitus type 2 5. Acute hypotension related to volume loss and anemia, resuscitated with IV fluid and red blood cell transfusion and transfer to ICU At this time patient was started on IV Protonix awaiting input from gastroenterology Follow closely
[2020-07-03] MEDS: PRAVASTATIN SODIUM 20 MG TAB PO SCH (20:58)
[2020-07-03] MEDS: ACETAMINOPHEN TAB 325 MG TAB PO PRN (23:21)
[2020-07-04 05:05] LABS: Basophils % (A) 0 %; Eosinophils # (A) 0.1 k/uL (0-0.7); Eosinophils % (A) 1 %; Lymphocytes # (A) 1.5 k/uL (1.0-4.8); Lymphocytes % (A) 15 %; MCH 29.6 pg (25.0-35.0); MCHC 32.9 g/dL (31.0-37.0); MCV 89.9 fL (80.0-100.0); Mean Platelet Volume 10.7; Monocytes # (A) 0.7 k/uL (0-1.0); Monocytes % (A) 7 %; Neutrophils # (A) 7.4 k/uL (1.3-7.7); Neutrophils % (A) 74 %; Platelet Count 108 k/uL (150-450)
[2020-07-04 05:11] LABS: HGB 5.9 gm/dL (11.4-16.0)
[2020-07-04 05:13] LABS: African American GFR (CKD) >90 (>60 ml/min/1.73 sqM); Anion Gap 1 mmol/L; Blood Urea Nitrogen 30 mg/dL (7-17); Calcium 7.7 mg/dL (8.4-10.2); Carbon Dioxide 24 mmol/L (22-30); Chloride 112 mmol/L (98-107); Glucose 133 mg/dL (74-99); Non-African American GFR(CKD) >90 (>60 ml/min/1.73 sqM); Potassium 3.9 mmol/L (3.5-5.1); Sodium 137 mmol/L (137-145)
[2020-07-04 05:50] LABS: Basophils % (A) 0 %; Eosinophils # (A) 0.2 k/uL (0-0.7); Eosinophils % (A) 2 %; Lymphocytes # (A) 1.3 k/uL (1.0-4.8); Lymphocytes % (A) 12 %; MCH 30.1 pg (25.0-35.0); MCHC 33.2 g/dL (31.0-37.0); MCV 90.7 fL (80.0-100.0); Mean Platelet Volume 10.1; Monocytes # (A) 0.7 k/uL (0-1.0); Monocytes % (A) 7 %; Neutrophils # (A) 8.2 k/uL (1.3-7.7); Neutrophils % (A) 78 %; Platelet Count 113 k/uL (150-450); RBC 1.96 m/uL (3.80-5.40); RDW 15.1 % (11.5-15.5); WBC 10.5 k/uL (3.8-10.6)
[2020-07-04 05:51] LABS: HCT 17.8 % (34.0-46.0); HGB 5.9 gm/dL (11.4-16.0)
[2020-07-04] MEDS ORDERED: Potassium Replacement Protocol 1 EACH MISC MISCELLANE PRN (05:54)
[2020-07-04] MEDS ORDERED: POTASSIUM CHLORIDE ER 20 MEQ TAB.ER PO SCH (06:00)
[2020-07-04 06:54] LABS: Glucose,Whole Blood 175 mg/dL (75-99)
[2020-07-04] MEDS: LEVOTHYROXINE 88 MCG TAB PO SCH (06:56)
--- NOTE | 2020-07-04 08:41 | P.PN ---
Subjective Progress Note Date: 07/04/20 Yeimi Pierce, dinorah is a 64-year-old female who presented to [facility] emergency room with a chief complaint of coffee-ground emesis twice she was evaluated in the emergency room, her hemoglobin was 9.7, she was started on IV Protonix and was admitted to medical floor gastroenterology consultation was requested. 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 Patient has been doing well without any evidence of bleeding for the last 3 years until recently. Her hemoglobin has been stable until this admission. On review of system patient denies any other symptoms there is no fever or chills no headache or dizziness no chest pain no shortness of breath no cough no nausea or vomiting no abdominal pain no diarrhea no burning with urination no frequency or urgency and no hematuria. On 07/03/2020 patient was seen and examined in the ICU, earlier this morning patient was found to have low blood pressure, she was given fluid bolus, she was having evidence of continuous bleeding, she was transferred to ICU hemoglobin was down to 5.7 she received red blood cell transfusion, EGD is scheduled for today, otherwise patient denies any complaints there is no fever or chills no headache or dizziness no chest pain no shortness of breath no cough no nausea or vomiting no abdominal pain no diarrhea and no urinary symptoms. On 07/04/2020 patient was seen and examined in the ICU, she is alert and oriented 3, she is complaining of headache, otherwise she denies any complaints, hemoglobin has dropped again to 5.9, she is receiving 2 more units of red blood cell transfusion, otherwise she denies any complaints, there is no fever or chills no headache or dizziness no chest pain no shortness of breath no cough no nausea or vomiting no abdominal pain no diarrhea and no urinary symptoms, pulmonary critical care and gastroenterology are following. Objective - Vital Signs Vital signs: Vital Signs Temp 98.3 F 07/04/20 07:27 Pulse 104 H 07/04/20 07:27 Resp 18 07/04/20 07:27 BP 102/62 07/04/20 07:27 Pulse Ox 98 07/04/20 07:00 Intake & Output 07/03/20 07/04/2020 18:59 06:59 18:59 Intake Total 2635 1200 100 Output Total 1200 450 Balance 1435 750 100 Weight 65.8 kg Intake: IV 350 1100 100 Sodium Chloride 0.9% 1, 1100 100 000 ml @ 100 mls/hr IV . Q10H [facility] Rx#:[id number] Intake, IV Titration 800 100 Amount Sodium Chloride 0.9% 1, 800 100 000 ml @ 100 mls/hr IV . Q10H [facility] Rx#:[id number] Oral 240 Blood Product 1245 0 Rc As-1 Unit 0 [id number] Rc Cpda-1 Unit 310 [id number] Rc Pheresis 2 As3 Unit 310 [id number] Output: Urine 1200 450 Other: Voiding Method Bedpan # Voids 1 # Bowel Movements 1 1 - Exam In general patient is alert and oriented 3 in no apparent distress HEENT head normocephalic and atraumatic Neck is supple no JVD no goiter no lymphadenopathy Chest exam reveals a few scattered rhonchi no wheezing Cardiac exam reveals regular heart sounds S1 and S2 no gallops no murmurs Abdomen is soft nontender no organomegaly was normal bowel sounds Extremity exam reveals no edema no cyanosis or clubbing Neurological examination reveals no gross focal deficits - Labs CBC & Chem 7: 07/04/20 05:38 07/04/20 04:50 Labs: Abnormal Lab Results - Last 24 Hours (Table) 07/01/20 07/03/20 07/04/20 Range/Units 19:26 14:08 04:50 RBC 2.95 L 2.00 L (3.80-5.40) m/uL Hgb 9.0 L D 5.9 L* D (11.4-16.0) gm/dL Hct 26.6 L 18.0 L* (34.0-46.0) % Plt Count 129 L 108 L (150-450) k/uL Neutrophils # (1.3-7.7) k/uL Chloride (98-107) mmol/L BUN (7-17) mg/dL Glucose (74-99) mg/dL POC Glucose (mg/dL) (75-99) mg/dL Calcium (8.4-10.2) mg/dL Crossmatch See Detail 07/04/20 07/04/20 07/04/20 Range/Units 04:50 05:38 06:52 RBC 1.96 L (3.80-5.40) m/uL Hgb 5.9 L* (11.4-16.0) gm/dL Hct 17.8 L* (34.0-46.0) % Plt Count 113 L (150-450) k/uL Neutrophils # 8.2 H (1.3-7.7) k/uL Chloride 112 H (98-107) mmol/L BUN 30 H (7-17) mg/dL Glucose 133 H (74-99) mg/dL POC Glucose (mg/dL) 175 H (75-99) mg/dL Calcium 7.7 L (8.4-10.2) mg/dL Crossmatch Assessment and Plan Plan: 1. 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 Gastroenterology consult requested 2. Acute blood loss anemia, will monitor hemoglobin closely 3. Underlying history of hypothyroidism 4. Underlying history of diabetes mellitus type 2 5. Acute hypotension related to volume loss and anemia, resuscitated with IV fluid and red blood cell transfusion and transfer to ICU At this time patient was started on IV Protonix awaiting input from gastroenterology Follow closely
[2020-07-04] MEDS: PANTOPRAZOLE 40 MG/10 ML VIAL IV SCH ×2 (08:55→20:27)
[2020-07-04] MEDS: MULTIVITAMINS, THERA 1 EACH TAB PO SCH (08:55)
[2020-07-04] MEDS: VIT A,C & E-LUTEIN-MINERALS 1 EACH TAB PO SCH ×2 (08:56→20:27)
[2020-07-04] MEDS: ACETAMINOPHEN TAB 325 MG TAB PO PRN ×2 (08:56→22:36)
--- NOTE | 2020-07-04 12:49 | P.PN ---
Subjective Progress Note Date: 07/04/20 Principal diagnosis: Acute GI blood loss anemia On 07/04/2020 patient seen in follow-up in the intensive care unit. She is awake and alert, oriented 3, room air pulse ox is 98%, blood pressure is 108/65, sinus tachycardia with a rate of 105 BPM. 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 Overnight patient had 4 or 5 episodes of black tarry stools and this morning hemoglobin is 5.9, yesterday patient received 2 units of blood, and this morning she is receiving 2 more units, she is on her unit #3 right now, she is still receiving IV fluids with 0.9 normal saline at a rate of 100 ML per hour, denies any abdominal pain, denies any nausea, she's had no vomiting, however in view of active bleeding, she was kept nothing by mouth, and GI service is planning on repeat EGD this afternoon with Dr. Bennett. Patient states she has been dizzy, she cannot sit up, she appears quite pale, but denies any chest pain or shortness of breath. Remains on PPI therapy with Protonix at 40 mg twice daily Objective - Vital Signs Vital signs: Vital Signs Temp 98.2 F 07/04/20 12:11 Pulse 99 07/04/20 12:11 Resp 23 07/04/20 12:11 BP 108/65 07/04/20 12:11 Pulse Ox 99 07/04/20 12:11 Intake & Output 07/03/20 07/04/20 07/04/20 18:59 06:59 18:59 Intake Total 2635 1200 860 Output Total 1200 450 600 Balance 1435 750 260 Weight 65.8 kg Intake: IV 350 1100 500 Sodium Chloride 0.9% 1, 1100 500 000 ml @ 100 mls/hr IV . Q10H [facility] Rx#:[id number] Intake, IV Titration 800 100 Amount Sodium Chloride 0.9% 1, 800 100 000 ml @ 100 mls/hr IV . Q10H [facility] Rx#:[id number] Oral 240 50 Blood Product 1245 0 310 Rc As-1 Unit 0 [id number] Rc As-1 Unit 0 310 [id number] Rc Cpda-1 Unit 310 [id number] Rc Pheresis 2 As3 Unit 310 [id number] Output: Urine 1200 450 600 Other: Voiding Method Bedpan Bedpan # Voids 1 0 # Bowel Movements 1 1 - Exam GENERAL EXAM: Alert, very pleasant, 64-year-old white female on room air, pale, with a pulse ox of 98-99% comfortable in no apparent distress. HEAD: Normocephalic/atraumatic. EYES: Normal reaction of pupils, equal size. Conjunctiva pink, sclera white. NOSE: Clear with pink turbinates. THROAT: No erythema or exudates. NECK: No masses, no JVD, no thyroid enlargement, no adenopathy. CHEST: No chest wall deformity. Symmetrical expansion. LUNGS: Equal air entry with no crackles, wheeze, rhonchi or dullness. CVS: Regular rate and rhythm, normal S1 and S2, no gallops, no murmurs, no rubs ABDOMEN: Soft, nontender. No hepatosplenomegaly, normal bowel sounds, no guarding or rigidity. EXTREMITIES: No clubbing, no edema, no cyanosis, 2+ pulses and upper and lower extremities. MUSCULOSKELETAL: Muscle strength and tone normal. SPINE: No scoliosis or deformity SKIN: No rashes CENTRAL NERVOUS SYSTEM: Alert and oriented -3. No focal deficits, tone is normal in all 4 extremities. PSYCHIATRIC: Alert and oriented -3. Appropriate affect. Intact judgment and insight. - Labs CBC & Chem 7: 07/04/20 05:38 07/04/20 04:50 Labs: Abnormal Lab Results - Last 24 Hours (Table) 07/01/20 07/03/20 07/04/20 Range/Units 19:26 14:08 04:50 RBC 2.95 L 2.00 L (3.80-5.40) m/uL Hgb 9.0 L D 5.9 L* D (11.4-16.0) gm/dL Hct 26.6 L 18.0 L* (34.0-46.0) % Plt Count 129 L 108 L (150-450) k/uL Neutrophils # (1.3-7.7) k/uL Chloride (98-107) mmol/L BUN (7-17) mg/dL Glucose (74-99) mg/dL POC Glucose (mg/dL) (75-99) mg/dL Calcium (8.4-10.2) mg/dL Crossmatch See Detail 07/04/20 07/04/20 07/04/20 Range/Units 04:50 05:38 06:52 RBC 1.96 L (3.80-5.40) m/uL Hgb 5.9 L* (11.4-16.0) gm/dL Hct 17.8 L* (34.0-46.0) % Plt Count 113 L (150-450) k/uL Neutrophils # 8.2 H (1.3-7.7) k/uL Chloride 112 H (98-107) mmol/L BUN 30 H (7-17) mg/dL Glucose 133 H (74-99) mg/dL POC Glucose (mg/dL) 175 H (75-99) mg/dL Calcium 7.7 L (8.4-10.2) mg/dL Crossmatch Assessment and Plan Plan: Assessment: 1 acute upper GI bleeding with significant drop in hemoglobin and hemodynamics instability. The patient is transferred to the intensive care unit, receiving a total of 2 units of packed RBC in addition to IV fluids. Hemodynamically stable for now. Suspect recurrent GI bleed probably related to previously observed duodenal telangiectasias. Status post EGD revealing actively bleeding duodenal and esophageal ectasia seen in the bulb, treated with gold probe ablation and epinephrine injection on 07/03/2020 2 blood loss anemia, with a drop of hemoglobin down to 5.7 and the patient is receiving unit 3 of 4 for recurrence of black tarry stools, and today's hemoglobin is 5.9 3 previous history of GI bleed and prior GI bleeding occurred in 2017 with EGD showing gastritis, hiatal hernia and duodenal telangiectasias 4 hypovolemic shock secondary to GI bleed, improved with fluid resuscitation and the patient is normotensive for now 5 diabetes mellitus 6 hypothyroidism Plan: Patient is nothing by mouth for repeat EGD this afternoon for recurrence of GI bleeding, patient is receiving additional 2 units of blood this morning, for a total of 4 units of packed red blood cells. She is lightheaded, and weak, but denies any difficulty breathing, or chest pain. No nausea or vomiting, no abdominal pain. Continue with IV fluids, continue PPI therapy, patient will be closely monitored in the intensive care unit. I performed a history & physical examination of the patient and discussed their management with my nurse practitioner, Kathleen Phan. I reviewed the nurse practitioner's note and agree with the documented findings and plan of care. Lung sounds are positive for clear breath sounds. The findings and the impression was discussed with the patient. I attest to the documentation by the nurse practitioner. Time with Patient: Less than 30
[2020-07-04] MEDS ORDERED: PROPOFOL 10 MG/ML 20 ML VIAL IV ONE (14:55)
[2020-07-04] MEDS ORDERED: LIDOCAINE 1% INJ 10MG/ML (20 ML MDV) ONE (14:55)
[2020-07-04] MEDS ORDERED: IV FLUID CONTINUATION 900 ML IV ONE (14:58)
--- NOTE | 2020-07-04 15:39 | P.PCN ---
Date of Procedure: 07/04/20 Description of Procedure: BRIEF HISTORY: 64-year-old female with a medical history significant for diabetes mellitus, prior upper GI bleed, hypothyroidism who presented to the hospital due to concerns over black-colored emesis. The patient reports multiple episodes of coffee-ground emesis. She does have a prior history of anemia and had an EGD in 2017 with findings of duodenal telangiectasias as well as a hiatal hernia and gastritis, with the telangiectasias treated with argon plasma coagulation therapy. Hemoglobin was found to be 9.2 on presentation. She did have occult testing of her stool which was negative for occult blood. Other laboratory evaluation significant for WBC of 6.5, platelet count 229,000, total bilirubin 1.1, alkaline phosphatase 43, AST 38 and ALT 20. She denies any NSAID use and will take Tylenol as needed for pain. The patient was taken for EGD with epinephrine injection and gold probe ablation yesterday. She continued to have some dark bowel movements overnight. Today the patient had a hemoglobin of 5. 9 in the morning. She was made nothing by mouth for repeat EGD. PROCEDURE PERFORMED: Esophagogastroduodenoscopy with pediatric colonoscope. PREOPERATIVE DIAGNOSIS: Melena, anemia of acute blood loss. ESTIMATED BLOOD LOSS: Minimal. IV sedation per anesthesia. PROCEDURE: After informed consent was obtained, the patient was brought into the endoscopy unit. IV sedation was administered by Anesthesia under continuous monitoring. Initially the Olympus GIF-190 video endoscope was inserted into the mouth. Esophagus intubated without any difficulty. It was gradually advanced into the stomach and duodenum and carefully examined. The scope was passed into the duodenal bulb where the previously treated angiectasia was seen, it appeared to be well healing with no active bleeding noted. The scope was then passed into the second, third and fourth portion of the duodenum with no fresh blood or old blood noted. The scope was then withdrawn into the stomach which was adequately insufflated with air and upon careful examination of the mucosa of the antrum, body, cardia and fundus no active bleeding or old blood was noted. The scope was then withdrawn into the esophagus. The GE junction was located at 38 cm from the incisors. The esophagus appeared normal. There were no erosions or ulcerations seen and the patient tolerated the procedure well. IMPRESSION: 1. No active bleeding or old blood noted on EGD using a pediatric colonoscope advanced to the third and fourth portion of the duodenum. 2. The previously treated angiectasia in the duodenal bulb appeared well healing with no active bleeding noted. RECOMMENDATIONS: The findings of this examination were discussed with the patient and her . Okay for liquid diet. Unfortunately, at this time the patient remains symptomatic continuing to have melanotic stool. Recommendation would be for transfer to a tertiary center where she did undergo CT angiography with possible coiling which is not available at this hospital. If the patient decides to stay we'll continue to perform serial monitoring of hemoglobin and hematocrit with plan for video capsule endoscopy or possibly tagged red blood cell scan. Continue ICU care and serial H&H monitoring. Transfuse patient as needed. Hold any anticoagulation therapy..
[2020-07-04 16:01] LABS: Glucose,Whole Blood 128 mg/dL (75-99)
[2020-07-04 16:57] LABS: HCT 27.8 % (34.0-46.0); HGB 9.3 gm/dL (11.4-16.0); MCH 31.3 pg (25.0-35.0); MCHC 33.3 g/dL (31.0-37.0); MCV 94.1 fL (80.0-100.0); Mean Platelet Volume 9.5; RBC 2.96 m/uL (3.80-5.40); RDW 14.2 % (11.5-15.5); WBC 10.7 k/uL (3.8-10.6)
[2020-07-04 17:11] LABS: Platelet Count 96 k/uL (150-450)
[2020-07-04] MEDS: SODIUM CHLORIDE 0.9% 1,000 ML IV SCH (20:26)
[2020-07-04] MEDS: PRAVASTATIN SODIUM 20 MG TAB PO SCH (20:27)
[2020-07-04 21:09] LABS: Glucose,Whole Blood 147 mg/dL (75-99)
[2020-07-05 00:35] LABS: MCH 30.4 pg (25.0-35.0); MCHC 33.4 g/dL (31.0-37.0); Mean Platelet Volume 9.6; RBC 2.07 m/uL (3.80-5.40); RDW 14.7 % (11.5-15.5); WBC 10.8 k/uL (3.8-10.6)
[2020-07-05 00:46] LABS: HCT 18.8 % (34.0-46.0); HGB 6.3 gm/dL (11.4-16.0); Platelet Count 106 k/uL (150-450)
[2020-07-05] MEDS: SODIUM CHLORIDE 0.9% 1,000 ML IV SCH ×2 (06:18→16:54)
[2020-07-05] MEDS: LEVOTHYROXINE 88 MCG TAB PO SCH (06:19)
[2020-07-05 07:14] LABS: Glucose,Whole Blood 101 mg/dL (75-99)
[2020-07-05 07:20] LABS: ALT 9 U/L (4-34); AST 17 U/L (14-36); African American GFR (CKD) >90 (>60 ml/min/1.73 sqM); Albumin 2.1 g/dL (3.5-5.0); Alkaline Phosphatase 25 U/L (38-126); Anion Gap 1 mmol/L; Blood Urea Nitrogen 29 mg/dL (7-17); Calcium 7.7 mg/dL (8.4-10.2); Carbon Dioxide 26 mmol/L (22-30); Chloride 113 mmol/L (98-107); Glucose 108 mg/dL (74-99); Non-African American GFR(CKD) >90 (>60 ml/min/1.73 sqM); Potassium 3.8 mmol/L (3.5-5.1); Sodium 140 mmol/L (137-145); Total Bilirubin 0.8 mg/dL (0.2-1.3); Total Protein 3.7 g/dL (6.3-8.2)
[2020-07-05 07:51] LABS: Glucose,Whole Blood 136 mg/dL (75-99)
[2020-07-05 08:07] LABS: Basophils % (A) 0 %; Eosinophils # (A) 0.3 k/uL (0-0.7); Eosinophils % (A) 3 %; HCT 23.3 % (34.0-46.0); Lymphocytes # (A) 1.6 k/uL (1.0-4.8); Lymphocytes % (A) 17 %; MCH 31.5 pg (25.0-35.0); MCHC 34.5 g/dL (31.0-37.0); MCV 91.3 fL (80.0-100.0); Mean Platelet Volume 10.1; Monocytes # (A) 0.5 k/uL (0-1.0); Monocytes % (A) 5 %; Neutrophils # (A) 6.9 k/uL (1.3-7.7); Neutrophils % (A) 73 %; RBC 2.55 m/uL (3.80-5.40); RDW 14.6 % (11.5-15.5); WBC 9.4 k/uL (3.8-10.6)
[2020-07-05 08:23] LABS: Platelet Count 89 k/uL (150-450)
[2020-07-05] MEDS: ACETAMINOPHEN TAB 325 MG TAB PO PRN ×2 (08:37→17:48)
[2020-07-05] MEDS: MULTIVITAMINS, THERA 1 EACH TAB PO SCH (09:11)
[2020-07-05] MEDS: VIT A,C & E-LUTEIN-MINERALS 1 EACH TAB PO SCH ×2 (09:11→21:26)
[2020-07-05] MEDS: PANTOPRAZOLE 40 MG/10 ML VIAL IV SCH ×2 (09:12→21:27)
--- NOTE | 2020-07-05 11:42 | P.PN ---
Subjective Progress Note Date: 07/05/20 Principal diagnosis: [place]ff, anemia of acute blood loss The patient was seen and examined at the bedside in the ICU. The patient states she feels weak and tired. She had further episodes of maroon colored bowel movements through the night. Her hemoglobin dropped to 6.3 in the middle of the night, she has received 1 unit of packed red blood cells. Her repeat hemoglobin this morning is 8. She denies any acute abdominal pain, nausea, or vomiting. The patient was taken for an EGD on 07/03/2020 with epinephrine injection and cold probe ablation. She continued to have some dark bowel movements the night following, therefore was scheduled for a repeat EGD yesterday which showed no active bleeding or blood noted on EGD. The previously treated angiectasia in the duodenal bulb appeared well-healing with no active bleeding noted. The patient was started on a clear liquid diet however the plan was if the patient continued to have melanotic stool with a drop in her hemoglobin the recommendation would be to transfer to a tertiary center where she could undergo a CT angiography with possible coiling which is not available at this hospital. Otherwise the plan was to consider a small bowel capsule endoscopy. Speaking with the patient she is in agreement to transfer to a tertiary center, her preference would be to [facility]. Objective - Vital Signs Vital signs: Vital Signs Temp 98.5 F 07/05/20 08:00 Pulse 93 07/05/20 11:00 Resp 12 07/05/20 11:00 BP 109/69 07/05/20 11:00 Pulse Ox 97 07/05/20 11:00 Intake & Output 07/04/20 07/05/20 07/05/20 18:59 06:59 18:59 Intake Total 2670 1720 300 Output Total 1100 0 Balance 1570 1720 300 Weight 68 kg Intake: IV 1800 1100 300 Sodium Chloride 0.9% 1, 1300 1100 300 000 ml @ 100 mls/hr IV . Q10H [facility] Rx#:[id number] Oral 250 Blood Product 620 620 Rc As-1 Unit 310 [id number] Rc As-1 Unit 310 [id number] Rc As-1 Unit 310 [id number] Output: Urine 1100 0 Other: Voiding Method Bedpan Bedpan # Voids 0 1 0 # Bowel Movements 1 1 1 - Exam General appearance: The patient is alert, oriented, in no acute distress. HET: Head is normocephalic and atraumatic. Neck: Supple Heart: S1 S2. Regular rate and rhythm. Lungs: No crackles or wheezes are heard. Abdomen: Soft, mild tenderness to palpation in the left lower quadrant, nondistended with bowel sounds. Extremities: Normal skin color and turgor. Neurological: No focal deficits. - Labs CBC & Chem 7: 07/05/20 12:23 07/05/20 06:45 Labs: Abnormal Lab Results - Last 24 Hours (Table) 07/01/20 07/01/20 07/04/20 Range/Units 19:26 19:41 16:00 WBC (3.8-10.6) k/uL RBC (3.80-5.40) m/uL Hgb (11.4-16.0) gm/dL Hct (34.0-46.0) % Plt Count (150-450) k/uL Chloride (98-107) mmol/L BUN (7-17) mg/dL Creatinine (0.52-1.04) mg/dL Glucose (74-99) mg/dL POC Glucose (mg/dL) 136 H 128 H (75-99) mg/dL Calcium (8.4-10.2) mg/dL Alkaline Phosphatase (38-126) U/L Total Protein (6.3-8.2) g/dL Albumin (3.5-5.0) g/dL Crossmatch See Detail 07/04/20 07/04/20 07/05/20 Range/Units 16:27 21:08 00:26 WBC 10.7 H 10.8 H (3.8-10.6) k/uL RBC 2.96 L 2.07 L (3.80-5.40) m/uL Hgb 9.3 L D 6.3 L* D (11.4-16.0) gm/dL Hct 27.8 L 18.8 L* (34.0-46.0) % Plt Count 96 L 106 L (150-450) k/uL Chloride (98-107) mmol/L BUN (7-17) mg/dL Creatinine (0.52-1.04) mg/dL Glucose (74-99) mg/dL POC Glucose (mg/dL) 147 H (75-99) mg/dL Calcium (8.4-10.2) mg/dL Alkaline Phosphatase (38-126) U/L Total Protein (6.3-8.2) g/dL Albumin (3.5-5.0) g/dL Crossmatch 07/05/20 07/05/20 07/05/20 Range/Units 01:35 06:45 06:45 WBC (3.8-10.6) k/uL RBC 2.55 L (3.80-5.40) m/uL Hgb 8.0 L D (11.4-16.0) gm/dL Hct 23.3 L (34.0-46.0) % Plt Count 89 L (150-450) k/uL Chloride 113 H (98-107) mmol/L BUN 29 H (7-17) mg/dL Creatinine 0.45 L (0.52-1.04) mg/dL Glucose 108 H (74-99) mg/dL POC Glucose (mg/dL) (75-99) mg/dL Calcium 7.7 L (8.4-10.2) mg/dL Alkaline Phosphatase 25 L (38-126) U/L Total Protein 3.7 L (6.3-8.2) g/dL Albumin 2.1 L (3.5-5.0) g/dL Crossmatch See Detail 07/05/20 Range/Units 07:12 WBC (3.8-10.6) k/uL RBC (3.80-5.40) m/uL Hgb (11.4-16.0) gm/dL Hct (34.0-46.0) % Plt Count (150-450) k/uL Chloride (98-107) mmol/L BUN (7-17) mg/dL Creatinine (0.52-1.04) mg/dL Glucose (74-99) mg/dL POC Glucose (mg/dL) 101 H (75-99) mg/dL Calcium (8.4-10.2) mg/dL Alkaline Phosphatase (38-126) U/L Total Protein (6.3-8.2) g/dL Albumin (3.5-5.0) g/dL Crossmatch Assessment and Plan Assessment: (1) Acute GI bleeding Narrative/Plan: 64-year-old female presenting with concerns over coffee-ground emesis. Prior GI bleed in 2017 with EGD showing gastritis, hiatal hernia and duodenal telangiectasias which were treated with argon plasma coagulation therapy. Unclear etiology of symptoms with differential including peptic ulcer disease, recurrence of angioectasias of the small bowel, gastritis, esophagitis, or other etiology. Current Visit: No Status: Acute Code(s): K92.2 - GASTROINTESTINAL HEMORRHAGE, UNSPECIFIED SNOMED Code(s): 25247035 (2) Acute blood loss anemia Current Visit: No Status: Acute Code(s): D62 - ACUTE POSTHEMORRHAGIC ANEMIA SNOMED Code(s): 260911880 (3) Coffee ground emesis Current Visit: No Status: Acute Code(s): K92.0 - HEMATEMESIS SNOMED Code(s): 58464340 Plan: Continue to closely monitor hemoglobin and hematocrit Transfuse if hemoglobin less than 7 Keep nothing by mouth Continue Protonix 40 mg IV twice a day Recommend transfer to tertiary center where the patient may undergo a CT angiography with possible coiling which is not available at this hospital Continue with ICU medical management Thank you for this consultation and allowing us to participate in the plan of care of your patient The impression and plan of care has been dictated as directed. I performed a history and examination of this patient, discussed the same with the dictator. I agree with the dictator's note ,documented as a scribe. Any a dditional findings or plans will be noted.
[2020-07-05 11:45] LABS: Glucose,Whole Blood 103 mg/dL (75-99)
--- NOTE | 2020-07-05 12:46 | P.PN ---
Subjective Progress Note Date: 07/05/20 A 2019, the patient remains in intensive care unit. The patient had a second endoscopy as the patient was having ongoing episodes of GI bleeds. During this current admission, the patient received a total of 5 units of packed RBC. The patient had another endoscopy yesterday and there was no evidence of active bleeding or blood noted in the EGD. A pediatric scope was used 2 advanced to the third and fourth portion of the duodenum. The previously treated angiectasia is in a duodenal bulb appeared to be healing with no evidence of any acute bleeding. Despite this, the patient continued to have some dark Luisa bowel movement overnight and she continued to have melanotic stool and drop in hemoglobin. It was advised to transfer this patient to a tertiary care center and the patient will be transferred to [facility] for angiography and possible further intervention regarding the ongoing bouts of GI bleeding. She is hemodynamically stable at this point in time. She is on no pressors. She is afebrile. Pulse ox is 97% on room air. Objective - Vital Signs Vital signs: Vital Signs Temp 98.5 F 07/05/20 08:00 Pulse 93 07/05/20 11:00 Resp 12 07/05/20 11:00 BP 109/69 07/05/20 11:00 Pulse Ox 97 07/05/20 11:00 Intake & Output 07/04/20 07/05/20 07/05/20 18:59 06:59 18:59 Intake Total 2670 1720 400 Output Total 1100 1 Balance 1570 1720 399 Weight 68 kg Intake: IV 1800 1100 400 Sodium Chloride 0.9% 1, 1300 1100 400 000 ml @ 100 mls/hr IV . Q10H [facility] Rx#:[id number] Oral 250 Blood Product 620 620 Rc As-1 Unit 310 [id number] Rc As-1 Unit 310 [id number] Rc As-1 Unit 310 [id number] Output: Urine 1100 1 Other: Voiding Method Bedpan Bedpan # Voids 0 1 0 # Bowel Movements 1 1 1 - Exam GENERAL EXAM: Alert, very pleasant, 64-year-old white female on room air, pale, with a pulse ox of 98-99% comfortable in no apparent distress. HEAD: Normocephalic/atraumatic. EYES: Normal reaction of pupils, equal size. Conjunctiva pink, sclera white. NOSE: Clear with pink turbinates. THROAT: No erythema or exudates. NECK: No masses, no JVD, no thyroid enlargement, no adenopathy. CHEST: No chest wall deformity. Symmetrical expansion. LUNGS: Equal air entry with no crackles, wheeze, rhonchi or dullness. CVS: Regular rate and rhythm, normal S1 and S2, no gallops, no murmurs, no rubs ABDOMEN: Soft, nontender. No hepatosplenomegaly, normal bowel sounds, no guarding or rigidity. EXTREMITIES: No clubbing, no edema, no cyanosis, 2+ pulses and upper and lower extremities. MUSCULOSKELETAL: Muscle strength and tone normal. SPINE: No scoliosis or deformity SKIN: No rashes CENTRAL NERVOUS SYSTEM: Alert and oriented -3. No focal deficits, tone is normal in all 4 extremities. PSYCHIATRIC: Alert and oriented -3. Appropriate affect. Intact judgment and insight. - Labs CBC & Chem 7: 07/05/20 06:45 07/05/20 06:45 Labs: Abnormal Lab Results - Last 24 Hours (Table) 07/01/20 07/01/20 07/04/20 Range/Units 19:26 19:41 16:00 WBC (3.8-10.6) k/uL RBC (3.80-5.40) m/uL Hgb (11.4-16.0) gm/dL Hct (34.0-46.0) % Plt Count (150-450) k/uL Chloride (98-107) mmol/L BUN (7-17) mg/dL Creatinine (0.52-1.04) mg/dL Glucose (74-99) mg/dL POC Glucose (mg/dL) 136 H 128 H (75-99) mg/dL Calcium (8.4-10.2) mg/dL Alkaline Phosphatase (38-126) U/L Total Protein (6.3-8.2) g/dL Albumin (3.5-5.0) g/dL Crossmatch See Detail 07/04/20 07/04/20 07/05/20 Range/Units 16:27 21:08 00:26 WBC 10.7 H 10.8 H (3.8-10.6) k/uL RBC 2.96 L 2.07 L (3.80-5.40) m/uL Hgb 9.3 L D 6.3 L* D (11.4-16.0) gm/dL Hct 27.8 L 18.8 L* (34.0-46.0) % Plt Count 96 L 106 L (150-450) k/uL Chloride (98-107) mmol/L BUN (7-17) mg/dL Creatinine (0.52-1.04) mg/dL Glucose (74-99) mg/dL POC Glucose (mg/dL) 147 H (75-99) mg/dL Calcium (8.4-10.2) mg/dL Alkaline Phosphatase (38-126) U/L Total Protein (6.3-8.2) g/dL Albumin (3.5-5.0) g/dL Crossmatch 07/05/20 07/05/20 07/05/20 Range/Units 01:35 06:45 06:45 WBC (3.8-10.6) k/uL RBC 2.55 L (3.80-5.40) m/uL Hgb 8.0 L D (11.4-16.0) gm/dL Hct 23.3 L (34.0-46.0) % Plt Count 89 L (150-450) k/uL Chloride 113 H (98-107) mmol/L BUN 29 H (7-17) mg/dL Creatinine 0.45 L (0.52-1.04) mg/dL Glucose 108 H (74-99) mg/dL POC Glucose (mg/dL) (75-99) mg/dL Calcium 7.7 L (8.4-10.2) mg/dL Alkaline Phosphatase 25 L (38-126) U/L Total Protein 3.7 L (6.3-8.2) g/dL Albumin 2.1 L (3.5-5.0) g/dL Crossmatch See Detail 07/05/20 07/05/20 Range/Units 07:12 11:44 WBC (3.8-10.6) k/uL RBC (3.80-5.40) m/uL Hgb (11.4-16.0) gm/dL Hct (34.0-46.0) % Plt Count (150-450) k/uL Chloride (98-107) mmol/L BUN (7-17) mg/dL Creatinine (0.52-1.04) mg/dL Glucose (74-99) mg/dL POC Glucose (mg/dL) 101 H 103 H (75-99) mg/dL Calcium (8.4-10.2) mg/dL Alkaline Phosphatase (38-126) U/L Total Protein (6.3-8.2) g/dL Albumin (3.5-5.0) g/dL Crossmatch Assessment and Plan Plan: 1 acute upper GI bleeding with significant drop in hemoglobin and hemodynamics instability. The patient continues to have signs of upper GI bleeding. EGD 2 done and the second endoscopy from yesterday showed no evidence of any active bleeding. Nevertheless, the patient continues to have melanotic stools and drop in hemoglobin. Total number of active received transfusion is 5 since admission. 2 blood loss anemia, and her most recent hemoglobin level is at 8.0. 3 previous history of GI bleed and prior GI bleeding occurred in 2017 with EGD showing gastritis, hiatal hernia and duodenal telangiectasias 4 hypovolemic shock secondary to GI bleed, improved with fluid resuscitation and the patient is normotensive for now 5 diabetes mellitus 6 hypothyroidism Plan: Keep the patient nothing by mouth IV Protonix Arrangements are being made to transfer this patient to [facility] for further evaluation regarding her ongoing GI bleed Meanwhile, the patient will be kept at ICU for further monitoring. We'll transfuse to hemoglobin is under 7. Continue monitoring H&H every 6 hours.
[2020-07-05 12:50] VITALS: BMI 24.9
[2020-07-05 12:54] LABS: Basophils % (A) 0 %; Eosinophils # (A) 0.3 k/uL (0-0.7); Eosinophils % (A) 4 %; HCT 22.3 % (34.0-46.0); HGB 7.4 gm/dL (11.4-16.0); Lymphocytes # (A) 1.6 k/uL (1.0-4.8); Lymphocytes % (A) 20 %; MCH 30.6 pg (25.0-35.0); MCHC 33.2 g/dL (31.0-37.0); Mean Platelet Volume 10.2; Monocytes # (A) 0.3 k/uL (0-1.0); Monocytes % (A) 4 %; Neutrophils # (A) 5.7 k/uL (1.3-7.7); Neutrophils % (A) 71 %; RBC 2.42 m/uL (3.80-5.40)
[2020-07-05 13:07] LABS: Platelet Count 87 k/uL (150-450)
--- NOTE | 2020-07-05 14:01 | P.PN ---
Subjective Progress Note Date: 07/05/20 dinorah Macias is a 64-year-old female who presented to [facility] emergency room with a chief complaint of coffee-ground emesis twice she was evaluated in the emergency room, her hemoglobin was 9.7, she was started on IV Protonix and was admitted to medical floor gastroenterology consultation was requested. 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 Patient has been doing well without any evidence of bleeding for the last 3 years until recently. Her hemoglobin has been stable until this admission. On review of system patient denies any other symptoms there is no fever or chills no headache or dizziness no chest pain no shortness of breath no cough no nausea or vomiting no abdominal pain no diarrhea no burning with urination no frequency or urgency and no hematuria. On 07/03/2020 patient was seen and examined in the ICU, earlier this morning patient was found to have low blood pressure, she was given fluid bolus, she was having evidence of continuous bleeding, she was transferred to ICU hemoglobin was down to 5.7 she received red blood cell transfusion, EGD is scheduled for today, otherwise patient denies any complaints there is no fever or chills no headache or dizziness no chest pain no shortness of breath no cough no nausea or vomiting no abdominal pain no diarrhea and no urinary symptoms. On 07/04/2020 patient was seen and examined in the ICU, she is alert and oriented 3, she is complaining of headache, otherwise she denies any complaints, hemoglobin has dropped again to 5.9, she is receiving 2 more units of red blood cell transfusion, otherwise she denies any complaints, there is no fever or chills no headache or dizziness no chest pain no shortness of breath no cough no nausea or vomiting no abdominal pain no diarrhea and no urinary symptoms, pulmonary critical care and gastroenterology are following. On 06/04/2020 patient was seen and examined in ICU she is alert and oriented in no distress there is no symptoms however hemoglobin, is down again to 6.3 this morning. Will discuss with critical care and gastroenterology further treatment plan for transfers Tertiary care center. Objective - Vital Signs Vital signs: Vital Signs Temp 98.5 F 08/28/20 08:00 Pulse 108 H 07/05/20 08:00 Resp 13 07/05/20 08:00 BP 119/77 07/05/20 08:00 Pulse Ox 97 07/05/20 08:00 Intake & Output 07/04/20 07/05/20 07/05/20 18:59 06:59 18:59 Intake Total 2670 1720 100 Output Total 1100 Balance 1570 1720 100 Weight 68 kg Intake: IV 1800 1100 100 Sodium Chloride 0.9% 1, 1300 1100 100 000 ml @ 100 mls/hr IV . Q10H [facility] Rx#:[id number] Oral 250 Blood Product 620 620 Rc As-1 Unit 310 [id number] Rc As-1 Unit 310 [id number] Rc As-1 Unit 310 [id number] Output: Urine 1100 Other: Voiding Method Bedpan Bedpan # Voids 0 1 1 # Bowel Movements 1 1 1 - Exam In general patient is alert and oriented 3 in no apparent distress HEENT head normocephalic and atraumatic Neck is supple no JVD no goiter no lymphadenopathy Chest exam reveals a few scattered rhonchi no wheezing Cardiac exam reveals regular heart sounds S1 and S2 no gallops no murmurs Abdomen is soft nontender no organomegaly was normal bowel sounds Extremity exam reveals no edema no cyanosis or clubbing Neurological examination reveals no gross focal deficits - Labs CBC & Chem 7: 07/05/20 12:23 07/05/20 06:45 Labs: Abnormal Lab Results - Last 24 Hours (Table) 07/01/20 07/01/20 07/04/20 Range/Units 19:26 19:41 16:00 WBC (3.8-10.6) k/uL RBC (3.80-5.40) m/uL Hgb (11.4-16.0) gm/dL Hct (34.0-46.0) % Plt Count (150-450) k/uL Chloride (98-107) mmol/L BUN (7-17) mg/dL Creatinine (0.52-1.04) mg/dL Glucose (74-99) mg/dL POC Glucose (mg/dL) 136 H 128 H (75-99) mg/dL Calcium (8.4-10.2) mg/dL Alkaline Phosphatase (38-126) U/L Total Protein (6.3-8.2) g/dL Albumin (3.5-5.0) g/dL Crossmatch See Detail 07/04/20 07/04/20 07/05/20 Range/Units 16:27 21:08 00:26 WBC 10.7 H 10.8 H (3.8-10.6) k/uL RBC 2.96 L 2.07 L (3.80-5.40) m/uL Hgb 9.3 L D 6.3 L* D (11.4-16.0) gm/dL Hct 27.8 L 18.8 L* (34.0-46.0) % Plt Count 96 L 106 L (150-450) k/uL Chloride (98-107) mmol/L BUN (7-17) mg/dL Creatinine (0.52-1.04) mg/dL Glucose (74-99) mg/dL POC Glucose (mg/dL) 147 H (75-99) mg/dL Calcium (8.4-10.2) mg/dL Alkaline Phosphatase (38-126) U/L Total Protein (6.3-8.2) g/dL Albumin (3.5-5.0) g/dL Crossmatch 07/05/20 07/05/20 07/05/20 Range/Units 01:35 06:45 06:45 WBC (3.8-10.6) k/uL RBC 2.55 L (3.80-5.40) m/uL Hgb 8.0 L D (11.4-16.0) gm/dL Hct 23.3 L (34.0-46.0) % Plt Count (150-450) k/uL Chloride 113 H (98-107) mmol/L BUN 29 H (7-17) mg/dL Creatinine 0.45 L (0.52-1.04) mg/dL Glucose 108 H (74-99) mg/dL POC Glucose (mg/dL) (75-99) mg/dL Calcium 7.7 L (8.4-10.2) mg/dL Alkaline Phosphatase 25 L (38-126) U/L Total Protein 3.7 L (6.3-8.2) g/dL Albumin 2.1 L (3.5-5.0) g/dL Crossmatch See Detail 07/05/20 Range/Units 07:12 WBC (3.8-10.6) k/uL RBC (3.80-5.40) m/uL Hgb (11.4-16.0) gm/dL Hct (34.0-46.0) % Plt Count (150-450) k/uL Chloride (98-107) mmol/L BUN (7-17) mg/dL Creatinine (0.52-1.04) mg/dL Glucose (74-99) mg/dL POC Glucose (mg/dL) 101 H (75-99) mg/dL Calcium (8.4-10.2) mg/dL Alkaline Phosphatase (38-126) U/L Total Protein (6.3-8.2) g/dL Albumin (3.5-5.0) g/dL Crossmatch Assessment and Plan Plan: 1. 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 Gastroenterology consult requested 2. Acute blood loss anemia, will monitor hemoglobin closely 3. Underlying history of hypothyroidism 4. Underlying history of diabetes mellitus type 2 5. Acute hypotension related to volume loss and anemia, resuscitated with IV fl uid and red blood cell transfusion and transfer to ICU At this time patient was started on IV Protonix awaiting input from gastroenterology Follow closely
--- NOTE | 2020-07-05 14:04 | P.DS ---
Providers Date of admission: 07/01/20 21:38 Expected date of discharge: 07/05/20 Attending physician: Daphne Waite Consults: 07/01/20 21:39 Consult Physician Routine Consulting Provider: John Swain Consult Reason/Comments: gi bleed Do you want consulting provider notified?: Yes 07/03/20 06:58 Consult Physician Stat Consulting Provider: Tigist Ramirez Consult Reason/Comments: ICU managment Do you want consulting provider notified?: Yes, Notify in am Primary care physician: [facility] Course: Diagnosis on discharge: 1. 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 Gastroenterology consult requested 2. Acute blood loss anemia, will monitor hemoglobin closely 3. Underlying history of hypothyroidism 4. Underlying history of diabetes mellitus type 2 5. Acute hypotension related to volume loss and anemia, resuscitated with IV fluid and red blood cell transfusion and transfer to ICU Diagnosis on discharge: Yeimi Pierce, dinorah is a 64-year-old female who presented to [facility] emergency room with a chief complaint of coffee-ground emesis twice she was evaluated in the emergency room, her hemoglobin was 9.7, she was started on IV Protonix and was admitted to medical floor gastroenterology consultation was requested. 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 Patient has been doing well without any evidence of bleeding for the last 3 years until recently. Her hemoglobin has been stable until this admission. On review of system patient denies any other symptoms there is no fever or chills no headache or dizziness no chest pain no shortness of breath no cough no nausea or vomiting no abdominal pain no diarrhea no burning with urination no frequency or urgency and no hematuria. On 07/03/2020 patient was seen and examined in the ICU, earlier this morning patient was found to have low blood pressure, she was given fluid bolus, she was having evidence of continuous bleeding, she was transferred to ICU hemoglobin was down to 5.7 she received red blood cell transfusion, EGD is scheduled for today, otherwise patient denies any complaints there is no fever or chills no headache or dizziness no chest pain no shortness of breath no cough no nausea or vomiting no abdominal pain no diarrhea and no urinary symptoms. On 07/04/2020 patient was seen and examined in the ICU, she is alert and oriented 3, she is complaining of headache, otherwise she denies any complaints, hemoglobin has dropped again to 5.9, she is receiving 2 more units of red blood cell transfusion, otherwise she denies any complaints, there is no fever or chills no headache or dizziness no chest pain no shortness of breath no cough no nausea or vomiting no abdominal pain no diarrhea and no urinary symptoms, pulmonary critical care and gastroenterology are following. On 06/04/2020 patient was seen and examined in ICU she is alert and oriented in no distress there is no symptoms however hemoglobin, is down again to 6.3 this morning. Will discuss with critical care and gastroenterology further treatment plan for transfers [facility]. Case was discussed with critical care, decision was made to transfer patient to [facility] for further care. Patient Condition at Discharge: Fair Plan - Discharge Summary Discharge Rx Participant: No New Discharge Prescriptions: No Action metFORMIN HCL [Glucophage] 850 mg PO BID Pravastatin Sodium [Pravachol] 20 mg PO HS Multivitamins, Thera [Multivitamin (formulary)] 1 tab PO DAILY lisinopriL [Prinivil] 5 mg PO DAILY Levothyroxine Sodium [Synthroid] 88 mcg PO DAILY Vit C/E/Zn/Coppr/Lutein/Zeaxan [Preservision Areds 2 Softgel] 1 cap PO BID ALPRAZolam [Xanax] 0.25 mg PO BID PRN PRN Reason: Anxiety Semaglutide [Ozempic] 1 mg SQ SA Ferrous Sulfate [Feosol] 325 mg PO DAILY Pantoprazole [Protonix] 40 mg PO DAILY Discharge Medication List Levothyroxine Sodium [Synthroid] 88 mcg PO DAILY 04/21/17 [History] Multivitamins, Thera [Multivitamin (formulary)] 1 tab PO DAILY 04/21/17 [History] Pravastatin Sodium [Pravachol] 20 mg PO HS 04/21/17 [History] Vit C/E/Zn/Coppr/Lutein/Zeaxan [Preservision Areds 2 Softgel] 1 cap PO BID 04/21/17 [History] lisinopriL [Prinivil] 5 mg PO DAILY 04/21/17 [History] metFORMIN HCL [Glucophage] 850 mg PO BID 04/21/17 [History] ALPRAZolam [Xanax] 0.25 mg PO BID PRN 07/01/20 [History] Ferrous Sulfate [Feosol] 325 mg PO DAILY 07/01/20 [History] Pantoprazole [Protonix] 40 mg PO DAILY 07/01/20 [History] Semaglutide [Ozempic] 1 mg SQ SA 07/01/20 [History] Follow up Appointment(s)/Referral(s): Daphne Waite MD [Primary Care Provider] - 1-2 days
[2020-07-05 16:52] LABS: Glucose,Whole Blood 168 mg/dL (75-99)
[2020-07-05 19:04] LABS: Basophils % (A) 1 %; Eosinophils # (A) 0.3 k/uL (0-0.7); Eosinophils % (A) 4 %; HCT 20.5 % (34.0-46.0); Lymphocytes # (A) 1.2 k/uL (1.0-4.8); Lymphocytes % (A) 19 %; MCH 30.7 pg (25.0-35.0); MCHC 33.4 g/dL (31.0-37.0); MCV 91.9 fL (80.0-100.0); Mean Platelet Volume 9.8; Monocytes # (A) 0.3 k/uL (0-1.0); Monocytes % (A) 5 %; Neutrophils # (A) 4.2 k/uL (1.3-7.7); Neutrophils % (A) 69 %; RBC 2.23 m/uL (3.80-5.40); RDW 15.2 % (11.5-15.5); WBC 6.1 k/uL (3.8-10.6)
[2020-07-05 19:16] LABS: HGB 6.8 gm/dL (11.4-16.0); Platelet Count 88 k/uL (150-450)
[2020-07-05] MEDS: PRAVASTATIN SODIUM 20 MG TAB PO SCH (21:26)
[2020-07-05 21:43] LABS: Glucose,Whole Blood 83 mg/dL (75-99)
[2020-07-05 23:35] VITALS: BP 115/77; PULSE 87; RESP 17; TEMP 98.2
[2020-07-06] MEDS ORDERED: SEMAGLUTIDE 1 MG SQ SCH (09:00)
== END 2020-07-05 23:46 | disposition short-term general hospital (02) | DRG 377 ==
LOC: EC 18:50 → 3SCARD 21:38 → 2SICU 07-03 07:44
PROVIDERS: ADMIT Internal Medicine; ATTEND Internal Medicine
PROC: 0DJ08ZZ Inspection of Upper Intestinal Tract, Via Natural or Artificial Opening Endoscopic (ICD-10-PCS; principal; 2020-07-03 12:30)
PROC: 3E0G8GC Introduction of Other Therapeutic Substance into Upper GI, Via Natural or Artificial Opening Endoscopic (ICD-10-PCS; principal; 2020-07-03 12:30)
PROC: 30233N1 Transfusion of Nonautologous Red Blood Cells into Peripheral Vein, Percutaneous Approach (ICD-10-PCS; principal; 2020-07-03 12:30)
PROC: 05HF33Z Insertion of Infusion Device into Left Cephalic Vein, Percutaneous Approach (ICD-10-PCS; 2020-07-03 12:30)
PROC: 0DJ08ZZ Inspection of Upper Intestinal Tract, Via Natural or Artificial Opening Endoscopic (ICD-10-PCS; 2020-07-04)
DX: K31.811 Angiodysplasia of stomach and duodenum with bleeding (principal); R57.1 Hypovolemic shock; D62 Acute posthemorrhagic anemia; K44.9 Diaphragmatic hernia without obstruction or gangrene; E03.9 Hypothyroidism, unspecified; E11.9 Type 2 diabetes mellitus without complications; K26.4 Chronic or unspecified duodenal ulcer with hemorrhage; K29.70 Gastritis, unspecified, without bleeding; Z79.84 Long term (current) use of oral hypoglycemic drugs; Z79.890 Hormone replacement therapy; Z79.899 Other long term (current) drug therapy; Z87.891 Personal history of nicotine dependence; Z90.710 Acquired absence of both cervix and uterus; Z87.11 Personal history of peptic ulcer disease; I95.9 Hypotension, unspecified; Z20.828 Contact with and (suspected) exposure to other viral communicable diseases
CPT/HCPCS: 36410; 36415; 43235; 43243; 43255; 76937; 80048; 80053; 82272; 85025; 85027; 85610; 85730; 86850; 86900; 86901; 86920; 93005; 96374; 96375; 99285

== ENCOUNTER 2021-01-24 12:43 | Inpatient (IN) | payer MEDICARE ==
[2021-01-24 14:02] LABS: Basophils % (A) 0 %; Eosinophils # (A) 0.2 k/uL (0-0.7); Eosinophils % (A) 2 %; HCT 37.5 % (34.0-46.0); HGB 13.3 gm/dL (11.4-16.0); Lymphocytes # (A) 1.3 k/uL (1.0-4.8); Lymphocytes % (A) 20 %; MCH 32.4 pg (25.0-35.0); MCHC 35.3 g/dL (31.0-37.0); MCV 91.6 fL (80.0-100.0); Mean Platelet Volume 8.4; Monocytes # (A) 0.5 k/uL (0-1.0); Monocytes % (A) 7 %; Neutrophils # (A) 4.5 k/uL (1.3-7.7); Neutrophils % (A) 68 %; Platelet Count 187 k/uL (150-450); RDW 11.9 % (11.5-15.5); WBC 6.6 k/uL (3.8-10.6)
[2021-01-24 14:09] LABS: ALT 17 U/L (4-34); AST 30 U/L (14-36); African American GFR (CKD) >90 (>60 ml/min/1.73 sqM); Albumin 4.7 g/dL (3.5-5.0); Alkaline Phosphatase 55 U/L (38-126); Anion Gap 8 mmol/L; Blood Urea Nitrogen 22 mg/dL (7-17); Calcium 10.3 mg/dL (8.4-10.2); Carbon Dioxide 29 mmol/L (22-30); Chloride 101 mmol/L (98-107); Glucose 97 mg/dL (74-99); Non-African American GFR(CKD) >90 (>60 ml/min/1.73 sqM); Potassium 5.2 mmol/L (3.5-5.1); Sodium 138 mmol/L (137-145); Total Bilirubin 0.7 mg/dL (0.2-1.3); Total Protein 7.6 g/dL (6.3-8.2)
[2021-01-24 14:10] LABS: Partial Thromboplastin Time 22.1 sec (22.0-30.0)
--- NOTE | 2021-01-24 14:57 | ED ---
General Adult HPI - General Chief complaint: GI Bleed Stated complaint: low hemoglobin/black stool Time Seen by Provider: 01/24/21 14:29 Source: patient, RN notes reviewed Mode of arrival: wheelchair Limitations: no limitations - History of Present Illness Initial comments: 65-year-old female with a past medical history of diabetes, GI bleed, thyroid di sorder presents to the emergency room for a chief complaint of black stools. Patient states 2 days ago she noticed she had black stool. States she has had this before with a GI bleed. States she also felt a little weak. She called her PCP and they told her to come to the ER for blood work. Patient denies syncope. Admits to some nausea vomiting, denies diarrhea. Denies lightheadedness.Patient has no other complaints at this time including shortness of breath, chest pain, abdominal pain, nausea or vomiting, headache, or visual changes. - Related Data Home Medications Medication Instructions Recorded Confirmed Levothyroxine Sodium [Synthroid] 88 mcg PO DAILY 04/21/17 01/24/21 Multivitamins, Thera [Multivitamin 1 tab PO DAILY 04/21/17 01/24/21 (formulary)] Pravastatin Sodium [Pravachol] 20 mg PO DAILY 04/21/17 01/24/21 Vit C/E/Zn/Coppr/Lutein/Zeaxan 1 cap PO BID 04/21/17 01/24/21 [Preservision Areds 2 Softgel] lisinopriL [Prinivil] 5 mg PO DAILY 04/21/17 01/24/21 metFORMIN HCL [Glucophage] 850 mg PO BID 04/21/17 01/24/21 Ferrous Sulfate [Feosol] 325 mg PO DAILY 07/01/20 01/24/21 Pantoprazole [Protonix] 40 mg PO BID 07/01/20 01/24/21 Semaglutide [Ozempic] 1 mg SQ RAMOS 07/01/20 01/24/21 Allergies Allergy/AdvReac Type Severity Reaction Status Date / Time No Known Allergies Allergy Verified 01/24/21 15:56 Review of Systems ROS Statement: Those systems with pertinent positive or pertinent negative responses have been documented in the HPI. ROS Other: All systems not noted in ROS Statement are negative. Past Medical History Past Medical History: Diabetes Mellitus, GI Bleed, Thyroid Disorder Additional Past Medical History / Comment(s): History of duodenal ulcer over 20 years ago. History of Any Multi-Drug Resistant Organisms: None Reported Past Surgical History: Heart Catheterization, Hysterectomy Additional Past Surgical History / Comment(s): ear implant Past Anesthesia/Blood Transfusion Reactions: No Reported Reaction Past Psychological History: No Psychological Hx Reported Smoking Status: Former smoker Past Alcohol Use History: Occasional Past Drug Use History: None Reported - Past Family History Mother Additional Family Medical History / Comment(s): Cancer General Exam Limitations: no limitations General appearance: alert, in no apparent distress Head exam: Present: atraumatic, normocephalic, normal inspection Eye exam: Present: normal appearance, PERRL, EOMI. Absent: scleral icterus, conjunctival injection, periorbital swelling ENT exam: Present: normal exam, mucous membranes moist Neck exam: Present: normal inspection, full ROM. Absent: tenderness, meningismus, lymphadenopathy Respiratory exam: Present: normal lung sounds bilaterally. Absent: respiratory distress, wheezes, rales, rhonchi, stridor Cardiovascular Exam: Present: regular rate, normal rhythm, normal heart sounds. Absent: systolic murmur, diastolic murmur, rubs, gallop, clicks GI/Abdominal exam: Present: soft, normal bowel sounds. Absent: distended, ten derness, guarding, rebound, rigid Rectal exam: Present: normal inspection, normal rectal tone. Absent: bloody stool, hemorrhoids, mass Neurological exam: Present: alert Course Vital Signs 01/24/21 12:49 Temperature 98.3 F Pulse Rate 98 Respiratory 16 Rate Blood Pressure 112/78 O2 Sat by Pulse 99 Oximetry EKG Findings - EKG Comments: EKG Findings:: Normal sinus rhythm, ventricular rate 90, pr int 168, QTC 401 Medical Decision Making - Medical Decision Making Vitals are stable. CBC CMP unremarkable. Hemoglobin stable at 13.3. However occult is positive. 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 At this time we will admit patient for GI consultation and monitoring. - Lab Data Result diagrams: 01/24/21 13:38 01/24/21 13:38 Lab Results 01/24/21 01/24/21 01/24/21 Range/Units 13:35 13:38 13:38 WBC 6.6 (3.8-10.6) k/uL RBC 4.10 (3.80-5.40) m/uL Hgb 13.3 (11.4-16.0) gm/dL Hct 37.5 (34.0-46.0) % MCV 91.6 (80.0-100.0) fL MCH 32.4 (25.0-35.0) pg MCHC 35.3 (31.0-37.0) g/dL RDW 11.9 (11.5-15.5) % Plt Count 187 (150-450) k/uL MPV 8.4 Neutrophils % 68 % Lymphocytes % 20 % Monocytes % 7 % Eosinophils % 2 % Basophils % 0 % Neutrophils # 4.5 (1.3-7.7) k/uL Lymphocytes # 1.3 (1.0-4.8) k/uL Monocytes # 0.5 (0-1.0) k/uL Eosinophils # 0.2 (0-0.7) k/uL Basophils # 0.0 (0-0.2) k/uL PT 11.0 (9.0-12.0) sec INR 1.0 (<1.2) APTT 22.1 (22.0-30.0) sec Sodium (137-145) mmol/L Potassium (3.5-5.1) mmol/L Chloride (98-107) mmol/L Carbon Dioxide (22-30) mmol/L Anion Gap mmol/L BUN (7-17) mg/dL Creatinine (0.52-1.04) mg/dL Est GFR (CKD-EPI)AfAm (>60 ml/min/1.73 sqM) Est GFR (CKD-EPI)NonAf (>60 ml/min/1.73 sqM) Glucose (74-99) mg/dL Calcium (8.4-10.2) mg/dL Total Bilirubin (0.2-1.3) mg/dL AST (14-36) U/L ALT (4-34) U/L Alkaline Phosphatase (38-126) U/L Troponin I (0.000-0.034) ng/mL Total Protein (6.3-8.2) g/dL Albumin (3.5-5.0) g/dL Urine Color Urine Appearance (Clear) Urine pH (5.0-8.0) Ur Specific [place] (1.001-1.035) Urine Protein (Negative) Urine Glucose (UA) (Negative) Urine Ketones (Negative) Urine Blood (Negative) Urine Nitrite (Negative) Urine Bilirubin (Negative) Urine Urobilinogen (<2.0) mg/dL Ur Leukocyte Esterase (Negative) Urine RBC (0-5) /hpf Urine WBC (0-5) /hpf Calcium Oxalate Crystal (None) /hpf Hyaline Casts (0-2) /lpf Urine Mucus (None) /hpf Stool Occult Blood (Negative) Blood Type O Negative Blood Type Recheck O Neg Bld Type Recheck Status No Antibody Screen NEGATIVE Spec Expiration Date 01/27/2021 - 233401/24/21 01/24/21 01/24/21 Range/Units 13:38 13:38 14:50 WBC (3.8-10.6) k/uL RBC (3.80-5.40) m/uL Hgb (11.4-16.0) gm/dL Hct (34.0-46.0) % MCV (80.0-100.0) fL MCH (25.0-35.0) pg MCHC (31.0-37.0) g/dL RDW (11.5-15.5) % Plt Count (150-450) k/uL MPV Neutrophils % % Lymphocytes % % Monocytes % % Eosinophils % % Basophils % % Neutrophils # (1.3-7.7) k/uL Lymphocytes # (1.0-4.8) k/uL Monocytes # (0-1.0) k/uL Eosinophils # (0-0.7) k/uL Basophils # (0-0.2) k/uL PT (9.0-12.0) sec INR (<1.2) APTT (22.0-30.0) sec Sodium 138 (137-145) mmol/L Potassium 5.2 H (3.5-5.1) mmol/L Chloride 101 (98-107) mmol/L Carbon Dioxide 29 (22-30) mmol/L Anion Gap 8 mmol/L BUN 22 H (7-17) mg/dL Creatinine 0.71 (0.52-1.04) mg/dL Est GFR (CKD-EPI)AfAm >90 (>60 ml/min/1.73 sqM) Est GFR (CKD-EPI)NonAf >90 (>60 ml/min/1.73 sqM) Glucose 97 (74-99) mg/dL Calcium 10.3 H (8.4-10.2) mg/dL Total Bilirubin 0.7 (0.2-1.3) mg/dL AST 30 (14-36) U/L ALT 17 (4-34) U/L Alkaline Phosphatase 55 (38-126) U/L Troponin I <0.012 (0.000-0.034) ng/mL Total Protein 7.6 (6.3-8.2) g/dL Albumin 4.7 (3.5-5.0) g/dL Urine Color Urine Appearance (Clear) Urine pH (5.0-8.0) Ur Specific [place] (1.001-1.035) Urine Protein (Negative) Urine Glucose (UA) (Negative) Urine Ketones (Negative) Urine Blood (Negative) Urine Nitrite (Negative) Urine Bilirubin (Negative) Urine Urobilinogen (<2.0) mg/dL Ur Leukocyte Esterase (Negative) Urine RBC (0-5) /hpf Urine WBC (0-5) /hpf Calcium Oxalate Crystal (None) /hpf Hyaline Casts (0-2) /lpf Urine Mucus (None) /hpf Stool Occult Blood Positive H (Negative) Blood Type Blood Type Recheck Bld Type Recheck Status Antibody Screen Spec Expiration Date 01/24/21 Range/Units 14:51 WBC (3.8-10.6) k/uL RBC (3.80-5.40) m/uL Hgb (11.4-16.0) gm/dL Hct (34.0-46.0) % MCV (80.0-100.0) fL MCH (25.0-35.0) pg MCHC (31.0-37.0) g/dL RDW (11.5-15.5) % Plt Count (150-450) k/uL MPV Neutrophils % % Lymphocytes % % Monocytes % % Eosinophils % % Basophils % % Neutrophils # (1.3-7.7) k/uL Lymphocytes # (1.0-4.8) k/uL Monocytes # (0-1.0) k/uL Eosinophils # (0-0.7) k/uL Basophils # (0-0.2) k/uL PT (9.0-12.0) sec INR (<1.2) APTT (22.0-30.0) sec Sodium (137-145) mmol/L Potassium (3.5-5.1) mmol/L Chloride (98-107) mmol/L Carbon Dioxide (22-30) mmol/L Anion Gap mmol/L BUN (7-17) mg/dL Creatinine (0.52-1.04) mg/dL Est GFR (CKD-EPI)AfAm (>60 ml/min/1.73 sqM) Est GFR (CKD-EPI)NonAf (>60 ml/min/1.73 sqM) Glucose (74-99) mg/dL Calcium (8.4-10.2) mg/dL Total Bilirubin (0.2-1.3) mg/dL AST (14-36) U/L ALT (4-34) U/L Alkaline Phosphatase (38-126) U/L Troponin I (0.000-0.034) ng/mL Total Protein (6.3-8.2) g/dL Albumin (3.5-5.0) g/dL Urine Color Yellow Urine Appearance Clear (Clear) Urine pH 5.5 (5.0-8.0) Ur Specific [place] 1.026 (1.001-1.035) Urine Protein Trace H (Negative) Urine Glucose (UA) Negative (Negative) Urine Ketones Negative (Negative) Urine Blood Negative (Negative) Urine Nitrite Negative (Negative) Urine Bilirubin Negative (Negative) Urine Urobilinogen <2.0 (<2.0) mg/dL Ur Leukocyte Esterase Trace H (Negative) Urine RBC 3 (0-5) /hpf Urine WBC 2 (0-5) /hpf Calcium Oxalate Crystal Occasional H (None) /hpf Hyaline Casts 10 H (0-2) /lpf Urine Mucus Many H (None) /hpf Stool Occult Blood (Negative) Blood Type Blood Type Recheck Bld Type Recheck Status Antibody Screen Spec Expiration Date Disposition Clinical Impression: GI bleed Disposition: ADMITTED IP TO THIS [facility] Is patient prescribed a controlled substance at d/c from ED?: No Referrals: Daphne Waite MD [Primary Care Provider] - 1-2 days Time of Disposition: 16:30
[2021-01-24 15:16] LABS: Appearance,Urine Clear (Clear); Bilirubin,Urine Negative (Negative); Blood,Urine Negative (Negative); Calcium Oxalate Crystals,Urine Occasional /hpf; Color,Urine Yellow; Glucose,Urine (UA) Negative (Negative); Hyaline Casts,Urine 10 /lpf (0-2); Ketones,Urine Negative (Negative); Leukocyte Esterase,Urine Trace (Negative); Mucus,Urine Many /hpf; Nitrite,Urine Negative (Negative); PH, Urine 5.5 (5.0-8.0); Protein,Urine Trace (Negative); RBC,Urine 3 /hpf (0-5); Specific Gravity,Urine 1.026 (1.001-1.035); Urobilinogen,Urine <2.0 mg/dL (<2.0); WBC,Urine 2 /hpf (0-5)
[2021-01-24] MEDS ORDERED: NALOXONE 0.4 MG/ML 1 ML VIAL IV PRN (16:25)
[2021-01-24] MEDS ORDERED: PANTOPRAZOLE 40 MG/10 ML VIAL IVP STA (16:26)
[2021-01-24] MEDS: SODIUM CHLORIDE 0.9% 1,000 ML IV SCH (16:52)
[2021-01-25 07:26] LABS: Basophils % (A) 1 %; Eosinophils # (A) 0.2 k/uL (0-0.7); Eosinophils % (A) 5 %; HCT 34.6 % (34.0-46.0); HGB 11.8 gm/dL (11.4-16.0); Lymphocytes # (A) 1.3 k/uL (1.0-4.8); Lymphocytes % (A) 31 %; MCH 31.9 pg (25.0-35.0); MCHC 34.1 g/dL (31.0-37.0); MCV 93.4 fL (80.0-100.0); Mean Platelet Volume 8.8; Monocytes # (A) 0.4 k/uL (0-1.0); Monocytes % (A) 9 %; Neutrophils # (A) 2.1 k/uL (1.3-7.7); Neutrophils % (A) 50 %; Platelet Count 158 k/uL (150-450); RDW 12.5 % (11.5-15.5); WBC 4.1 k/uL (3.8-10.6)
[2021-01-25 07:29] LABS: Glucose,Whole Blood 79 mg/dL (75-99)
[2021-01-25 07:47] LABS: African American GFR (CKD) >90 (>60 ml/min/1.73 sqM); Anion Gap 6 mmol/L; Blood Urea Nitrogen 15 mg/dL (7-17); Calcium 9.4 mg/dL (8.4-10.2); Carbon Dioxide 28 mmol/L (22-30); Chloride 106 mmol/L (98-107); Glucose 84 mg/dL (74-99); Non-African American GFR(CKD) >90 (>60 ml/min/1.73 sqM); Sodium 140 mmol/L (137-145)
[2021-01-25] MEDS: INSULIN ASPART (NovoLOG) 100 UNIT/ML VIAL SQ SCH ×4 (08:14→20:47)
[2021-01-25] MEDS: metFORMIN 850 MG TAB PO SCH ×2 (08:22→20:47)
[2021-01-25] MEDS: lisinopriL 5 MG TAB PO SCH (08:22)
[2021-01-25] MEDS: PRAVASTATIN SODIUM 20 MG TAB PO SCH (08:22)
[2021-01-25] MEDS: VIT A,C & E-LUTEIN-MINERALS 1 EACH TAB PO SCH ×2 (08:22→20:47)
[2021-01-25] MEDS: LEVOTHYROXINE 88 MCG TAB PO SCH (08:22)
[2021-01-25] MEDS: PANTOPRAZOLE 40 MG TABLET PO SCH ×2 (08:22→16:29)
[2021-01-25] MEDS: MULTIVITAMINS, THERA 1 EACH TAB PO SCH (08:22)
[2021-01-25] MEDS ORDERED: ONDANSETRON 4 MG/2 ML VIAL IVP PRN (08:26)
[2021-01-25] MEDS ORDERED: PANTOPRAZOLE 40 MG/10 ML VIAL IV SCH (09:00)
[2021-01-25] MEDS ORDERED: IV FLUID CONTINUATION 1,000 ML IV ONE (09:26)
[2021-01-25] MEDS ORDERED: PROPOFOL 10 MG/ML 20 ML VIAL IV ONE (09:29)
--- NOTE | 2021-01-25 09:53 | P.PCN ---
Date of Procedure: 01/25/21 Procedure(s) Performed: BRIEF HISTORY: Patient is a 65-year-old, pleasant, white female admitted hospital with black tarry stools for the last few days duration. Hemoglobin dropped from 30-11.5 g/dL. She had prior history of duodenal vascular ectasia for which she needed upper endoscopy with cautery in 2016 and as well as in June 2070. She is scheduled for an upper endoscopy today to evaluate further.. PROCEDURE PERFORMED: Esophagogastroduodenoscopy with cautery using a gold. PREOPERATIVE DIAGNOSIS: Acute upper GI bleed and history of duodenal angiectasia. IV sedation per anesthesia. PROCEDURE: After informed consent was obtained, the patient was brought into the endoscopy unit. IV sedation was administered by Anesthesia under continuous monitoring. Initially the Olympus GIF-140 video endoscope was inserted into the mouth. Esophagus intubated without any difficulty. It was gradually advanced into the stomach and duodenum and carefully examined. The bulb and the second part of the duodenum had fresh blood with one large duodenal angiectasia in the second part of the duodenum with active bleeding. Using a gold probe cautery was performed. There were 3 other small nonbleeding AVMs in the vicinity which were also cauterized.. The scope at this time was withdrawn to the stomach, adequately insufflated with air, and upon careful examination, mucosa of the antrum, body, cardia and the fundus appeared normal. In the fundus of the stomach there was one small angiectasia which was also cauterized. The scope was then withdrawn into the esophagus. The GE junction was located at 39 cm from the incisors. The esophagus appeared normal. There were no erosions or ulcerations seen and the patient tolerated the procedure well. IMPRESSION: 1. Actively bleeding duodenal angiectasia in the second part of the duodenum status post cautery using a gold probe with good hemostasis. 2. Small angiectasia in the gastric fundus status post cautery. RECOMMENDATIONS: The findings of this examination were discussed with the patient as well as her family. She'll be started on clear liquid diet. Monitor CBC daily. Continue Protonix 40 mg daily..
--- NOTE | 2021-01-25 11:23 | CONS ---
CONSULTATION DATE OF SERVICE: 01/25/2021 REQUESTING PHYSICIAN: Dr. Waite. REASON FOR CONSULTATION: Acute GI bleed. HISTORY OF PRESENT ILLNESS: The patient is a 65-year-old pleasant white female admitted to the hospital with black tarry stools that started about 3 or 4 days ago. She had one episode of black tarry stools every day for the last four days. She became concerned, started to feel a little bit weak and was advised to go to the ER and subsequently admitted to the hospital for further evaluation. At the time of admission to the hospital hemoglobin was 13.3 and today it has dropped to 11.8 g/dL. She reports no abdominal pain. No nausea, no vomiting. She had a similar episode of acute upper GI bleed and underwent an upper endoscopy in 2016 and was noted to have duodenal angioectasia and cauterized and she did well. She was readmitted to the hospital in June of 2020 and was seen by Dr. Swain. She had an upper endoscopy on 07/03/2020 which revealed actively bleeding angioectasia in the second part of the duodenum, which was injected and cauterized and she did well. Two days later she had significant bleeding and repeat upper endoscopy was unremarkable. She received 6 units of PRBC transfusion during that hospitalization and subsequently was transferred to [facility] but eventually the bleeding stopped and no further testing was needed. Since then the patient had done well. Currently she reports no anticoagulation. PAST MEDICAL HISTORY: Significant for hypertension, hyperlipidemia, gastroesophageal reflux disease, hypothyroidism and diabetes mellitus. MEDICATIONS AT HOME: Prinivil, Glucophage, Semaglutide, Pravachol, Protonix, multivitamin, Synthroid and Feosol. ALLERGIES: None. SOCIAL HISTORY: No smoking, no alcohol use. FAMILY HISTORY: Unremarkable. REVIEW OF SYSTEMS: CARDIOPULMONARY: No chest pain, no shortness of breath GENITOURINARY: No dysuria or hematuria. MUSCULOSKELETAL: Unremarkable. SKIN: Unremarkable. ENDOCRINE: Unremarkable. PSYCHIATRIC: Unremarkable. NEUROLOGY: Unremarkable. ENT/VISION: Unremarkable. CONSTITUTIONAL: No recent weight loss. No fever, chills, night sweats. PAST SURGICAL HISTORY: Cardiac catheterization, hysterectomy, and multiple EGDs. PHYSICAL EXAMINATION: Appears comfortable. VITAL SIGNS: Stable. Blood pressure is 130/72, pulse rate 64, temperature 97.9 HEENT examination unremarkable. Conjunctivae pink. Sclerae anicteric. Oral cavity, no lesions. NECK: No JVD or lymph node enlargement. CHEST: Clear to auscultation. HEART: Regular rate and rhythm. ABDOMEN: Soft. Bowel sounds are positive. No organomegaly. EXTREMITIES: No pedal edema. NEUROLOGIC: Alert and oriented x3. No focal deficits. LABS: Labs done at the time of admission to the hospital: WBC 6, hemoglobin 13, platelets normal. PT/INR normal. BUN 22, creatinine 0.72. Today hemoglobin is 11.8. Stool occult blood was positive. AST, ALT, T-bilirubin and alkaline phosphatase are within normal limits. IMPRESSION: 1. Black tarry stools for the last four days duration and slight drop in hemoglobin from 13.3 to 11.8 g/dL. Clinically and hemodynamically stable. The patient with history of duodenal angioectasia in the past for which she needed an upper endoscopy in 2016 as well as in June of 12/2019 needing cauterization. Most likely she is having upper GI bleed from duodenal angioectasia. 2. History of diabetes mellitus and hypertension. 3. History of hyperlipidemia. RECOMMENDATIONS: 1. Keep her N.P.O. 2. We will proceed with an upper endoscopy today and if it is negative, we will consider a small bowel capsule endoscopy during this hospitalization. 3. Monitor CBC daily. 4. Further recommendations will follow based on the upper endoscopy results. Thank you for this consultation. MMCHASL / DENISE: [id number] /
[2021-01-25 12:31] LABS: Glucose,Whole Blood 99 mg/dL (75-99)
--- NOTE | 2021-01-25 12:57 | P.HPIM ---
History of Present Illness H&P Date: 01/25/21 Yeimi Pierce, is a 65-year-old female who presented to [facility] emergency room with a chief complaint of multiple episodes of black stools over the last 2 days, patient has a known history of upper gastrointestinal bleeding, she was admitted to [facility] in 2019 with similar complaint at that time EGD 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 She was evaluated in the emergency room vital examination on presentation revealed a temperature of 98.3 pulse 98 respirations 16 blood pressure 112/78 pulse ox 99% on room air white blood count was 6.6 hemoglobin 13.3 platelet count 187 BUN 22 creatinine 0.71 stools Hemoccult was positive coronavirus PCR was negative patient was admitted to medical floor for further evaluation and treatment, gastroenterology consultation was requested. On review of systems patient is alert and oriented 3 in no apparent distress she is complaining of multiple episodes of black tarry stools over the last 2 days otherwise she denies any complaints there is no fever or chills no headache or dizziness no chest pain no shortness of breath no cough no nausea or vomiting no abdominal pain no tristan blood in the stools no burning with urination no frequency or urgency and no hematuria. No weakness or numbness in any of the extremities and no change in vision speech or gait. Past Medical History Past Medical History: Diabetes Mellitus, GI Bleed, Hyperlipidemia, Thyroid Disorder Additional Past Medical History / Comment(s): History of duodenal ulcer over 20 years ago. History of Any Multi-Drug Resistant Organisms: None Reported Past Surgical History: Heart Catheterization, Hysterectomy Additional Past Surgical History / Comment(s): left titanium ear implant Past Anesthesia/Blood Transfusion Reactions: No Reported Reaction Past Psychological History: No Psychological Hx Reported Smoking Status: Former smoker Past Alcohol Use History: Occasional Additional Past Alcohol Use History / Comment(s): wine ever couple months/holidays Past Drug Use History: None Reported - Past Family History Mother Additional Family Medical History / Comment(s): blood cancer Medications and Allergies Home Medications Medication Instructions Recorded Confirmed Type Levothyroxine Sodium [Synthroid] 88 mcg PO DAILY 04/21/17 01/24/21 History Multivitamins, Thera [Multivitamin 1 tab PO DAILY 04/21/17 01/24/21 History (formulary)] Pravastatin Sodium [Pravachol] 20 mg PO DAILY 04/21/17 01/24/21 History Vit C/E/Zn/Coppr/Lutein/Zeaxan 1 cap PO BID 04/21/17 01/24/21 History [Preservision Areds 2 Softgel] lisinopriL [Prinivil] 5 mg PO DAILY 04/21/17 01/24/21 History metFORMIN HCL [Glucophage] 850 mg PO BID 04/21/17 01/24/21 History Ferrous Sulfate [Feosol] 325 mg PO DAILY 07/01/20 01/24/21 History Pantoprazole [Protonix] 40 mg PO BID 07/01/20 01/24/21 History Semaglutide [Ozempic] 1 mg SQ RAMOS 07/01/20 01/24/21 History Allergies Allergy/AdvReac Type Severity Reaction Status Date / Time No Known Allergies Allergy Verified 01/24/21 15:56 Physical Exam Vitals: Vital Signs Temp Pulse Pulse Resp BP BP Pulse Ox 01/25/21 01:59 97.9 F 61 15 97/62 100 01/25/21 01:00 16 01/24/21 23:59 97.6 F 59 L 17 102/65 01/24/21 22:33 71 16 98/62 98 01/24/21 18:25 68 18 116/66 99 01/24/21 12:49 98.3 F 98 16 112/78 99 Intake and Output 01/24/21 01/25/21 01/25/21 22:59 06:59 14:59 Other: Voiding Method Toilet # Voids 2 Weight 129 kg In general patient is alert and oriented 3 in no apparent distress HEENT head normocephalic and atraumatic Neck is supple no JVD no goiter no lymphadenopathy Chest exam reveals a few scattered crackles no wheezing Cardiac exam reveals regular heart sounds S1 and S2 no gallops no murmurs Abdomen is soft nontender no organomegaly with normal bowel sounds Extremity exam reveals no edema no cyanosis or clubbing Neurological examination reveals no gross focal deficit Results CBC & Chem 7: 01/25/21 06:49 01/25/21 06:49 Labs: Abnormal Lab Results - Last 24 Hours (Table) 03/01/24/21 01/24/21 Range/Units 13:38 14:50 14:51 Potassium 5.2 H (3.5-5.1) mmol/L BUN 22 H (7-17) mg/dL Calcium 10.3 H (8.4-10.2) mg/dL Urine Protein Trace H (Negative) Ur Leukocyte Esterase Trace H (Negative) Calcium Oxalate Crystal Occasional H (None) /hpf Hyaline Casts 10 H (0-2) /lpf Urine Mucus Many H (None) /hpf Stool Occult Blood Positive H (Negative) Assessment and Plan Plan: Upper gastrointestinal bleeding with black tarry stools for the last 2 days Previous history of telangiectasias requiring treatment in the past Underlying history of [id number] diabetes mellitus Underlying history of hypertension Underlying history of hypothyroidism Underlying history of hyperlipidemia At this time patient is admitted to medical floor Will monitor hemoglobin closely Gastroenterology consultation requested and plans are for EGD this morning
[2021-01-25] MEDS: SODIUM CHLORIDE 0.9% 1,000 ML IV SCH (15:16)
[2021-01-25 16:28] LABS: Glucose,Whole Blood 102 mg/dL (75-99)
[2021-01-25 20:44] LABS: Glucose,Whole Blood 98 mg/dL (75-99)
[2021-01-26] MEDS: LEVOTHYROXINE 88 MCG TAB PO SCH (05:46)
[2021-01-26] MEDS: PANTOPRAZOLE 40 MG TABLET PO SCH ×2 (05:47→18:31)
[2021-01-26] MEDS: INSULIN ASPART (NovoLOG) 100 UNIT/ML VIAL SQ SCH ×5 (06:57→20:52)
[2021-01-26] MEDS ORDERED: NON FORMULARY DRUG (Semaglutide [Ozempic] 1 MG/0.75 ML Pen.Injctr) SQ SCH (07:13)
[2021-01-26] MEDS: PRAVASTATIN SODIUM 20 MG TAB PO SCH (08:22)
[2021-01-26] MEDS: metFORMIN 850 MG TAB PO SCH ×2 (08:22→20:52)
[2021-01-26] MEDS: VIT A,C & E-LUTEIN-MINERALS 1 EACH TAB PO SCH ×2 (08:22→20:52)
[2021-01-26] MEDS: lisinopriL 5 MG TAB PO SCH (08:23)
[2021-01-26] MEDS: MULTIVITAMINS, THERA 1 EACH TAB PO SCH (08:23)
[2021-01-26 09:17] LABS: Basophils # (A) 0.02 X 10*3/uL (0.00-0.10); Basophils % (A) 0.4 %; Eosinophils # (A) 0.19 X 10*3/uL (0.04-0.35); Eosinophils % (A) 3.5 %; HCT 30.3 % (37.2-46.3); HGB 10.4 g/dL (12.0-15.0); Lymphocytes # (A) 1.67 X 10*3/uL (0.90-5.00); Lymphocytes % (A) 30.4 %; MCH 31.4 pg (27.0-32.0); MCHC 34.3 g/dL (32.0-37.0); MCV 91.5 fL (80.0-97.0); Mean Platelet Volume 11.7 fL (9.5-12.2); Monocytes # (A) 0.61 X 10*3/uL (0.20-1.00); Monocytes % (A) 11.1 %; Neutrophils % (A) 54.4 %; Platelet Count 149 X 10*3/uL (140-440); RBC 3.31 X 10*6/uL (4.10-5.20); RDW 11.6 % (11.5-14.5)
[2021-01-26 09:35] LABS: African American GFR (CKD) 110.9 (60.0-200.0); Albumin/Globulin Ratio 2.22 (1.60-3.17); Anion Gap 3.2 mmol/L (4.00-12.00); BUN/Creat Ratio 23.33 Ratio (12.00-20.00); Calcium 9.3 mg/dL (8.7-10.3); Carbon Dioxide 31.8 mmol/L (21.6-31.8); Globulin 1.8 g/dL (1.6-3.3); Non-African American GFR(CKD) 95.7 (60.0-200.0); Potassium 4.5 mmol/L (3.5-5.5); Total Bilirubin 0.9 mg/dL (0.3-1.2); Total Protein 5.8 g/dL (6.2-8.2)
--- NOTE | 2021-01-26 11:19 | P.PN ---
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 She was evaluated in the emergency room vital examination on presentation revealed a temperature of 98.3 pulse 98 respirations 16 blood pressure 112/78 pulse ox 99% on room air white blood count was 6.6 hemoglobin 13.3 platelet count 187 BUN 22 creatinine 0.71 stools Hemoccult was positive coronavirus PCR was negative patient was admitted to medical floor for further evaluation and treatment, gastroenterology consultation was requested. On review of systems patient is alert and oriented 3 in no apparent distress she is complaining of multiple episodes of black tarry stools over the last 2 days otherwise she denies any complaints there is no fever or chills no headache or dizziness no chest pain no shortness of breath no cough no nausea or vomiting no abdominal pain no tristan blood in the stools no burning with urination no frequency or urgency and no hematuria. No weakness or numbness in any of the extremities and no change in vision speech or gait. On 01/26/2021 patient is status post EGD. Patient is currently maintained on clear liquids globin did drop to 10.4 no further episodes of bleeding since EGD and cauterization. We'll continue to monitor patient for an additional 24 hours. Patient denies any chest pain or shortness breath. Patient denies nausea vomiting or diarrhea. Patient denies any urinary burning or frequency Objective - Vital Signs Vital signs: Vital Signs Temp 98.0 F 01/26/21 08:20 Pulse 69 01/26/21 08:20 Resp 18 01/26/21 08:20 BP 129/80 01/26/21 08:20 Pulse Ox 99 01/26/21 08:20 Intake & Output 01/25/21 01/26/21 01/26/21 18:59 06:59 18:59 Intake Total 460 240 Balance 460 240 Intake: IV 460 Sodium Chloride 0.9% 1, 160 000 ml @ 20 mls/hr IV . Q24H [facility] Rx#:[id number] Oral 240 Other: Voiding Method Toilet - Exam Head normocephalic Neck supple Lungs clear to auscultation bilaterally no wheezing or crackles Heart regular rate and rhythm S1-S2, no rub or gallop Abdomen is soft nontender nondistended positive bowel sounds no hepatosplenomegaly Extremities no edema Neuro alert and orientated to 3 - Labs CBC & Chem 7: 01/26/21 05:21 01/26/21 05:21 Labs: Abnormal Lab Results - Last 24 Hours (Table) 01/25/21 01/26/21 01/26/21 Range/Units 16:27 05:21 05:21 RBC 3.31 L (4.10-5.20) X 10*6/uL Hgb 10.4 L (12.0-15.0) g/dL Hct 30.3 L (37.2-46.3) % Anion Gap 3.20 L (4.00-12.00) mmol/L BUN/Creatinine Ratio 23.33 H (12.00-20.00) Ratio POC Glucose (mg/dL) 102 H (75-99) mg/dL Total Protein 5.8 L (6.2-8.2) g/dL Assessment and Plan Plan: Upper gastrointestinal bleeding with black tarry stools for the last 2 days 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
[2021-01-26 13:20] LABS: Glucose,Whole Blood 71 mg/dL (75-99)
--- NOTE | 2021-01-26 15:39 | PN ---
PROGRESS NOTE DATE OF SERVICE: 01/26/2021 REQUESTING PHYSICIAN: Dr. Waite. INTERVAL HISTORY: The patient is a 65-year-old pleasant white female admitted to the hospital yesterday with acute upper GI bleed. She underwent an upper endoscopy that revealed actively bleeding duodenal angioectasia that was cauterized. The patient is doing better, had no bowel movements since yesterday. She reports no abdominal pain. No nausea, vomiting. Continues to remain on a clear liquid diet. PHYSICAL EXAMINATION: She appears comfortable. No apparent distress. VITAL SIGNS: Stable. Blood pressure 122/86, pulse rate 65, afebrile. HEENT: Examination unremarkable. Conjunctivae are pink. Sclerae anicteric. Oral cavity no lesions. NECK: No JVD or lymph node enlargement. CHEST: Clear to auscultation. HEART: Regular rate and rhythm. ABDOMEN: Soft. Bowel sounds are positive. No organomegaly. EXTREMITIES: No pedal edema. SKIN: No rashes. NEUROLOGIC: Alert and oriented x3. No focal deficits. LABS: Labs done today WBC 5.5, hemoglobin 10.4, platelets 149. BUN and creatinine are 14 and 0.6 respectively. IMPRESSION: 1. Acute upper gastrointestinal bleed status post EGD yesterday that revealed actively bleeding duodenal angioectasia status post cautery with a gold probe. Patient doing well. Hemoglobin slightly dropped to 10.4, but she had no further bleeding. 2. Mild anemia. RECOMMENDATION: 1. Advance to regular diet. 2. Continue with Protonix 40 mg twice daily. 3. Repeat CBC in the morning. If it is stable she can be discharged home tomorrow with outpatient followup in 2-3 weeks. MMODL / IJN: [id number] /
[2021-01-26 17:29] LABS: Glucose,Whole Blood 76 mg/dL (75-99)
[2021-01-26] MEDS: SODIUM CHLORIDE 0.9% 1,000 ML IV SCH (19:54)
[2021-01-26 20:55] LABS: Glucose,Whole Blood 102 mg/dL (75-99)
[2021-01-27 06:28] LABS: Basophils % (A) 0 %; Eosinophils # (A) 0.2 k/uL (0-0.7); Eosinophils % (A) 3 %; HCT 28.9 % (34.0-46.0); Lymphocytes # (A) 1.7 k/uL (1.0-4.8); Lymphocytes % (A) 27 %; MCH 31.7 pg (25.0-35.0); MCHC 34.4 g/dL (31.0-37.0); MCV 92.1 fL (80.0-100.0); Mean Platelet Volume 8.8; Monocytes # (A) 0.4 k/uL (0-1.0); Monocytes % (A) 6 %; Neutrophils # (A) 3.8 k/uL (1.3-7.7); Neutrophils % (A) 61 %; Platelet Count 155 k/uL (150-450); RBC 3.14 m/uL (3.80-5.40); RDW 12.7 % (11.5-15.5); WBC 6.2 k/uL (3.8-10.6)
[2021-01-27 06:30] LABS: HGB 9.9 gm/dL (11.4-16.0)
[2021-01-27] MEDS: LEVOTHYROXINE 88 MCG TAB PO SCH (06:34)
[2021-01-27] MEDS: INSULIN ASPART (NovoLOG) 100 UNIT/ML VIAL SQ SCH ×4 (06:36→21:00)
[2021-01-27 06:37] LABS: Glucose,Whole Blood 91 mg/dL (75-99)
[2021-01-27 06:47] LABS: ALT 13 U/L (4-34); AST 23 U/L (14-36); African American GFR (CKD) >90 (>60 ml/min/1.73 sqM); Albumin 3.5 g/dL (3.5-5.0); Alkaline Phosphatase 43 U/L (38-126); Anion Gap 8 mmol/L; Blood Urea Nitrogen 21 mg/dL (7-17); Calcium 9.6 mg/dL (8.4-10.2); Carbon Dioxide 28 mmol/L (22-30); Chloride 103 mmol/L (98-107); Glucose 96 mg/dL (74-99); Non-African American GFR(CKD) >90 (>60 ml/min/1.73 sqM); Potassium 4.7 mmol/L (3.5-5.1); Sodium 139 mmol/L (137-145); Total Bilirubin 0.4 mg/dL (0.2-1.3); Total Protein 5.9 g/dL (6.3-8.2)
[2021-01-27] MEDS: metFORMIN 850 MG TAB PO SCH (08:09)
[2021-01-27] MEDS: VIT A,C & E-LUTEIN-MINERALS 1 EACH TAB PO SCH ×2 (08:09→21:00)
[2021-01-27] MEDS: PRAVASTATIN SODIUM 20 MG TAB PO SCH (08:09)
[2021-01-27] MEDS: MULTIVITAMINS, THERA 1 EACH TAB PO SCH (08:09)
[2021-01-27] MEDS: PANTOPRAZOLE 40 MG TABLET PO SCH ×2 (08:14→17:12)
[2021-01-27] MEDS: lisinopriL 5 MG TAB PO SCH (08:14)
[2021-01-27 11:34] LABS: Glucose,Whole Blood 75 mg/dL (75-99)
[2021-01-27] MEDS: SODIUM CHLORIDE 0.9% 1,000 ML IV SCH (12:48)
[2021-01-27 12:52] LABS: Glucose,Whole Blood 111 mg/dL (75-99)
[2021-01-27 14:08] LABS: Hemoglobin A1C 4.7 % (4.0-6.0)
--- NOTE | 2021-01-27 16:17 | P.PN ---
Subjective Progress Note Date: 01/27/21 Principal diagnosis: Upper GI bleed, history of angiectasia Patient is seen and examined lying in bed. She is status post upper endoscopy two days ago that revealed actively bleeding duodenal angiectasia that was cauterized. The patient did not feel well this morning, was sitting up in the chair and felt a little bit dizzy. Went to bed and had some crackers. She states she is just feeling weak. She is tolerating her diet. She's had a couple bowel movements that still remain black. Today's hemoglobin was stable at 9.9. Objective - Vital Signs Vital signs: Vital Signs Temp 98.0 F 01/27/21 08:11 Pulse 82 01/27/21 11:30 Resp 18 01/27/21 11:25 BP 149/80 01/27/21 11:30 Pulse Ox 100 01/27/21 11:30 Intake & Output 01/26/21 01/27/21 01/27/21 18:59 06:59 18:59 Intake Total 1200 700 Balance 1200 700 Intake: Oral 1200 700 Other: Voiding Method Toilet # Voids 3 2 1 # Bowel Movements 1 - Exam General appearance: The patient is alert, oriented, appears in no acute distress. HET: Head is normocephalic and atraumatic. Conjunctiva pink. Sclera anicteric. Neck: Supple without lymphadenopathy. Abdomen: Soft, nontender, nondistended with bowel sounds. No guarding or rigidity. Extremities: Normal skin color and turgor. No pedal edema Skin: No rashes, no jaundice Neurological: No focal deficits. Alert and oriented 3. - Labs CBC & Chem 7: 01/27/21 06:03 01/27/21 06:03 Labs: Abnormal Lab Results - Last 24 Hours (Table) 01/26/21 01/26/21 01/27/21 Range/Units 13:19 20:51 06:03 RBC 3.14 L (3.80-5.40) m/uL Hgb 9.9 L D (11.4-16.0) gm/dL Hct 28.9 L (34.0-46.0) % BUN (7-17) mg/dL POC Glucose (mg/dL) 71 L 102 H (75-99) mg/dL Total Protein (6.3-8.2) g/dL 01/27/21 Range/Units 06:03 RBC (3.80-5.40) m/uL Hgb (11.4-16.0) gm/dL Hct (34.0-46.0) % BUN 21 H (7-17) mg/dL POC Glucose (mg/dL) (75-99) mg/dL Total Protein 5.9 L (6.3-8.2) g/dL Assessment and Plan (1) Upper gastrointestinal bleed Narrative/Plan: A 65-year-old pleasant white female who presented to the emergency department with melena and coffee-ground emesis. She is status post EGD 2 days ago which revealed actively bleeding duodenal angiectasia status post cautery with cold probe ablation. Patient is doing well today hemoglobin is stable at 9.9. Current Visit: Yes Status: Acute Code(s): K92.2 - GASTROINTESTINAL HEMORRHAGE, UNSPECIFIED SNOMED Code(s): 94400806 (2) Coffee ground emesis Current Visit: No Status: Acute Code(s): K92.0 - HEMATEMESIS SNOMED Code(s): 01515980 (3) Melena Current Visit: No Status: Acute Code(s): K92.1 - MELENA SNOMED Code(s): 1638661 Plan: 1. Supportive care 2. Continue diet as tolerated 3. Repeat CBC at 1600 and in morning 4. Transfuse for hemoglobin less than 7 Thank you for this consultation, we will continue to follow Dr. Swain I agree with the dictator's note, documented as a scribe by Cherri Ellington NP- Harvey. for this consultation, we will continue to monitor
[2021-01-27 17:06] LABS: Glucose,Whole Blood 100 mg/dL (75-99)
[2021-01-27 17:10] LABS: HCT 25.8 % (34.0-46.0); HGB 9.4 gm/dL (11.4-16.0); MCH 33.5 pg (25.0-35.0); MCHC 36.4 g/dL (31.0-37.0); MCV 91.9 fL (80.0-100.0); Mean Platelet Volume 9.1; Platelet Count 166 k/uL (150-450); RBC 2.81 m/uL (3.80-5.40); RDW 12.2 % (11.5-15.5); WBC 5.5 k/uL (3.8-10.6)
--- NOTE | 2021-01-27 17:14 | P.PN ---
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 She was evaluated in the emergency room vital examination on presentation revealed a temperature of 98.3 pulse 98 respirations 16 blood pressure 112/78 pulse ox 99% on room air white blood count was 6.6 hemoglobin 13.3 platelet count 187 BUN 22 creatinine 0.71 stools Hemoccult was positive coronavirus PCR was negative patient was admitted to medical floor for further evaluation and treatment, gastroenterology consultation was requested. On review of systems patient is alert and oriented 3 in no apparent distress she is complaining of multiple episodes of black tarry stools over the last 2 days otherwise she denies any complaints there is no fever or chills no headache or dizziness no chest pain no shortness of breath no cough no nausea or vomiting no abdominal pain no tristan blood in the stools no burning with urination no frequency or urgency and no hematuria. No weakness or numbness in any of the extremities and no change in vision speech or gait. On 01/26/2021 patient is status post EGD. Patient is currently maintained on clear liquids globin did drop to 10.4 no further episodes of bleeding since EGD and cauterization. We'll continue to monitor patient for an additional 24 hours. Patient denies any chest pain or shortness breath. Patient denies nausea vomiting or diarrhea. Patient denies any urinary burning or frequency. On 01/27/2021 patient was seen and examined on the medical floor she is alert and oriented 3 in no apparent distress she had an episode of hypoglycemia this morning she also had more episodes of black tarry stools hemoglobin this morning is 9.9 down from 10.4 yesterday eat CBC was ordered for this afternoon gastroenterology following otherwise patient denies any complaints there is no fever or chills no headache or dizziness no chest pain no shortness of breath no cough no nausea or vomiting no abdominal pain no burning with urination no frequency or urgency and no hematuria Objective - Vital Signs Vital signs: Vital Signs Temp 98.5 F 01/27/21 14:00 Pulse 79 01/27/21 14:00 Resp 18 01/27/21 14:00 BP 101/62 01/27/21 14:00 Pulse Ox 100 01/27/21 14:00 Intake & Output 01/26/21 01/27/21 01/27/21 18:59 06:59 18:59 Intake Total 1200 820 Balance 1200 820 Intake: Oral 1200 820 Other: Voiding Method Toilet # Voids 3 2 1 # Bowel Movements 1 - Exam Head normocephalic Neck supple Lungs clear to auscultation bilaterally no wheezing or crackles Heart regular rate and rhythm S1-S2, no rub or gallop Abdomen is soft nontender nondistended positive bowel sounds no hepatosplenomegaly Extremities no edema Neuro alert and orientated to 3 - Labs CBC & Chem 7: 01/27/21 16:52 01/27/21 06:03 Labs: Abnormal Lab Results - Last 24 Hours (Table) 01/26/21 01/27/21 01/27/21 Range/Units 20:51 06:03 06:03 RBC 3.14 L (3.80-5.40) m/uL Hgb 9.9 L D (11.4-16.0) gm/dL Hct 28.9 L (34.0-46.0) % BUN 21 H (7-17) mg/dL POC Glucose (mg/dL) 102 H (75-99) mg/dL Total Protein 5.9 L (6.3-8.2) g/dL 01/27/21 01/27/21 01/27/21 Range/Units 12:51 16:52 17:05 RBC 2.81 L (3.80-5.40) m/uL Hgb 9.4 L (11.4-16.0) gm/dL Hct 25.8 L (34.0-46.0) % BUN (7-17) mg/dL POC Glucose (mg/dL) 111 H 100 H (75-99) mg/dL Total Protein (6.3-8.2) g/dL Assessment and Plan Plan: Upper gastrointestinal bleeding with black tarry stools, with declining hem oglobin Will continue to monitor closely gastroenterology following 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
[2021-01-27 21:01] LABS: Glucose,Whole Blood 93 mg/dL (75-99)
[2021-01-28 06:10] LABS: Basophils % (A) 0 %; Eosinophils # (A) 0.2 k/uL (0-0.7); Eosinophils % (A) 4 %; HCT 25.9 % (34.0-46.0); HGB 9.3 gm/dL (11.4-16.0); Lymphocytes # (A) 1.5 k/uL (1.0-4.8); Lymphocytes % (A) 33 %; MCH 33.1 pg (25.0-35.0); MCHC 36.1 g/dL (31.0-37.0); MCV 91.9 fL (80.0-100.0); Mean Platelet Volume 8.7; Monocytes # (A) 0.3 k/uL (0-1.0); Monocytes % (A) 7 %; Neutrophils # (A) 2.4 k/uL (1.3-7.7); Neutrophils % (A) 52 %; Platelet Count 146 k/uL (150-450); RBC 2.82 m/uL (3.80-5.40); RDW 12.5 % (11.5-15.5); WBC 4.6 k/uL (3.8-10.6)
[2021-01-28 06:26] LABS: ALT 13 U/L (4-34); AST 24 U/L (14-36); African American GFR (CKD) >90 (>60 ml/min/1.73 sqM); Albumin 3.3 g/dL (3.5-5.0); Alkaline Phosphatase 61 U/L (38-126); Anion Gap 1 mmol/L; Blood Urea Nitrogen 18 mg/dL (7-17); Calcium 9.4 mg/dL (8.4-10.2); Carbon Dioxide 31 mmol/L (22-30); Chloride 105 mmol/L (98-107); Glucose 90 mg/dL (74-99); Non-African American GFR(CKD) >90 (>60 ml/min/1.73 sqM); Potassium 4.6 mmol/L (3.5-5.1); Sodium 137 mmol/L (137-145); Total Bilirubin 0.3 mg/dL (0.2-1.3); Total Protein 5.7 g/dL (6.3-8.2)
[2021-01-28] MEDS: LEVOTHYROXINE 88 MCG TAB PO SCH (06:44)
[2021-01-28] MEDS: INSULIN ASPART (NovoLOG) 100 UNIT/ML VIAL SQ SCH ×2 (06:46→12:20)
[2021-01-28 06:47] LABS: Glucose,Whole Blood 86 mg/dL (75-99)
[2021-01-28] MEDS: MULTIVITAMINS, THERA 1 EACH TAB PO SCH (08:31)
[2021-01-28] MEDS: VIT A,C & E-LUTEIN-MINERALS 1 EACH TAB PO SCH (08:31)
[2021-01-28] MEDS: PANTOPRAZOLE 40 MG TABLET PO SCH (08:31)
[2021-01-28] MEDS: PRAVASTATIN SODIUM 20 MG TAB PO SCH (08:31)
[2021-01-28] MEDS: lisinopriL 5 MG TAB PO SCH (08:32)
[2021-01-28 09:02] VITALS: BP 94/63; PULSE 73; RESP 14; TEMP 98.4
[2021-01-28 12:17] LABS: Glucose,Whole Blood 98 mg/dL (75-99)
--- NOTE | 2021-01-28 12:31 | P.DS ---
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 Underlying history of wgx-khqwffc-bfirxyaqp diabetes mellitus Underlying history of hypertension Underlying history of hypothyroidism Underlying history of hyperlipidemia At this time patient is admitted to medical floor Will monitor hemoglobin closely Status post EGD on 01/25/2021 showing actively bleeding duodenal agiectasia in the second part of the duodenum status post cautery Patient maintained on clear liquid diet, continue monitor hemoglobin Hospital course Yeimi Pierce, is a 65-year-old female who presented to [facility] emergency room with a chief complaint of multiple episodes of black stools over the last 2 days, patient has a known history of upper gastrointestinal bleeding, she was admitted to [facility] in June 2020 with similar complaint at that time EGD 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 She was evaluated in the emergency room vital examination on presentation revealed a temperature of 98.3 pulse 98 respirations 16 blood pressure 112/78 pulse ox 99% on room air white blood count was 6.6 hemoglobin 13.3 platelet count 187 BUN 22 creatinine 0.71 stools Hemoccult was positive coronavirus PCR was negative patient was admitted to medical floor for further evaluation and treatment, gastroenterology consultation was requested. On review of systems patient is alert and oriented 3 in no apparent distress she is complaining of multiple episodes of black tarry stools over the last 2 days otherwise she denies any complaints there is no fever or chills no headache or dizziness no chest pain no shortness of breath no cough no nausea or vomiting no abdominal pain no tristan blood in the stools no burning with urination no frequency or urgency and no hematuria. No weakness or numbness in any of the extremities and no change in vision speech or gait. On 01/26/2021 patient is status post EGD. Patient is currently maintained on clear liquids globin did drop to 10.4 no further episodes of bleeding since EGD and cauterization. We'll continue to monitor patient for an additional 24 hours. Patient denies any chest pain or shortness breath. Patient denies nausea vomiting or diarrhea. Patient denies any urinary burning or frequency. On 01/27/2021 patient was seen and examined on the medical floor she is alert and oriented 3 in no apparent distress she had an episode of hypoglycemia this morning she also had more episodes of black tarry stools hemoglobin this morning is 9.9 down from 10.4 yesterday eat CBC was ordered for this afternoon gastroenterology following otherwise patient denies any complaints there is no fever or chills no headache or dizziness no chest pain no shortness of breath no cough no nausea or vomiting no abdominal pain no burning with urination no frequency or urgency and no hematuria On 01/28/2021 patient's alert and oriented 3 hemoglobin slightly lower to 9.3. Discussed case with GI services patient cleared for discharge. Patient denies any acute symptoms. Patient denies chest pain or shortness of breath. Patient denies nausea vomiting or diarrhea. Patient denies any urinary burning or frequency. Repeat CBC ordered for 2 days. Patient advised to follow-upwith PCP by the end of the week before she leaves for vacation. Patient Condition at Discharge: Stable Plan - Discharge Summary Discharge Rx Participant: No New Discharge Prescriptions: Continue metFORMIN HCL [Glucophage] 850 mg PO BID Pravastatin Sodium [Pravachol] 20 mg PO DAILY Multivitamins, Thera [Multivitamin (formulary)] 1 tab PO DAILY lisinopriL [Prinivil] 5 mg PO DAILY Levothyroxine Sodium [Synthroid] 88 mcg PO DAILY Vit C/E/Zn/Coppr/Lutein/Zeaxan [Preservision Areds 2 Softgel] 1 cap PO BID Semaglutide [Ozempic] 1 mg SQ RAMOS Ferrous Sulfate [Iron (65 MG Elemental)] 325 mg PO DAILY Pantoprazole [Protonix] 40 mg PO BID Discharge Medication List Levothyroxine Sodium [Synthroid] 88 mcg PO DAILY 04/21/17 [History] Multivitamins, Thera [Multivitamin (formulary)] 1 tab PO DAILY 04/21/17 [History] Pravastatin Sodium [Pravachol] 20 mg PO DAILY 04/21/17 [History] Vit C/E/Zn/Coppr/Lutein/Zeaxan [Preservision Areds 2 Softgel] 1 cap PO BID 04/21/17 [History] lisinopriL [Prinivil] 5 mg PO DAILY 04/21/17 [History] metFORMIN HCL [Glucophage] 850 mg PO BID 04/21/17 [History] Ferrous Sulfate [Iron (65 MG Elemental)] 325 mg PO DAILY 07/01/20 [History] Pantoprazole [Protonix] 40 mg PO BID 07/01/20 [History] Semaglutide [Ozempic] 1 mg SQ RAMOS 07/01/20 [History] Follow up Appointment(s)/Referral(s): Daphne Waite MD [Primary Care Provider] - 1-2 days Ambulatory/Diagnostic Orders: Complete Blood Count w/diff [LAB.AMB] Time Frame: 2 Days, Location: None Selected Discharge Disposition: HOME SELF-CARE
--- NOTE | 2021-01-28 14:30 | P.PN ---
Subjective Progress Note Date: 01/28/21 Principal diagnosis: Upper GI bleed, history of angiectasia The patient is seen and examined. She states she is feeling much better today. Denies any dizziness or fatigue. She denies any bowel movement with blood today. She is tolerating her diet. She denies any abdominal pain, nausea, or vomiting. Her hemoglobin is stable at 9.3. She is requesting clearance to go home. Objective - Vital Signs Vital signs: Vital Signs Temp 98.4 F 01/28/21 08:25 Pulse 73 01/28/21 08:25 Resp 14 01/28/21 08:25 BP 94/63 01/28/21 08:25 Pulse Ox 99 01/28/21 08:25 Intake & Output 01/27/21 01/28/21 01/28/21 18:59 06:59 18:59 Intake Total 1282 980 Balance 1282 980 Weight 58.693 kg Intake: IV 200 Sodium Chloride 0.9% 1, 200 000 ml @ 20 mls/hr IV . Q24H [facility] Rx#:[id number] Oral 1282 780 Other: Voiding Method Toilet # Voids 1 1 1 # Bowel Movements 1 - Exam General appearance: The patient is alert, oriented, appears in no acute distress. HET: Head is normocephalic and atraumatic. Conjunctiva pink. Sclera anicteric. Neck: Supple without lymphadenopathy. Abdomen: Soft, nontender, nondistended with bowel sounds. No guarding or rigidity. Extremities: Normal skin color and turgor. No pedal edema Skin: No rashes, no jaundice Neurological: No focal deficits. Alert and oriented 3. - Labs CBC & Chem 7: 01/28/21 05:39 01/28/21 05:39 Labs: Abnormal Lab Results - Last 24 Hours (Table) 01/27/21 01/27/21 01/27/21 Range/Units 12:51 16:52 17:05 RBC 2.81 L (3.80-5.40) m/uL Hgb 9.4 L (11.4-16.0) gm/dL Hct 25.8 L (34.0-46.0) % Plt Count (150-450) k/uL Carbon Dioxide (22-30) mmol/L BUN (7-17) mg/dL POC Glucose (mg/dL) 111 H 100 H (75-99) mg/dL Total Protein (6.3-8.2) g/dL Albumin (3.5-5.0) g/dL 01/28/21 01/28/21 Range/Units 05:39 05:39 RBC 2.82 L (3.80-5.40) m/uL Hgb 9.3 L (11.4-16.0) gm/dL Hct 25.9 L (34.0-46.0) % Plt Count 146 L (150-450) k/uL Carbon Dioxide 31 H (22-30) mmol/L BUN 18 H (7-17) mg/dL POC Glucose (mg/dL) (75-99) mg/dL Total Protein 5.7 L (6.3-8.2) g/dL Albumin 3.3 L (3.5-5.0) g/dL Assessment and Plan (1) Upper gastrointestinal bleed Narrative/Plan: A 65-year-old pleasant white female who presented to the emergency department with melena and coffee-ground emesis. She is status post EGD 2 days ago which revealed actively bleeding duodenal angiectasia status post cautery with cold probe ablation. Patient is doing well today hemoglobin is stable at 9.3 with no evidence of bleeding. Status: Acute Code(s): K92.2 - GASTROINTESTINAL HEMORRHAGE, UNSPECIFIED SNOMED Code(s): 96435262 (2) Coffee ground emesis Status: Acute Code(s): K92.0 - HEMATEMESIS SNOMED Code(s): 83605015 (3) Melena Status: Acute Code(s): K92.1 - MELENA SNOMED Code(s): 4045965 Plan: 1. Supportive care 2. Continue diet as tolerated Thank you for this consultation, patient may be discharged home from a gastroenterology standpoint. We do recommend she has follow-up with her PCP and repeat CBC. Dr. Swain I agree with the dictator's note, documented as a scribe by Cherri Gabriel.
--- NOTE | 2021-01-31 08:02 | CDI ---
Documentation Clarification Form Date: 01/31/2021 08:00:00 AM From: Cassandra Styles CCS Admit Date: 01/27/2021 08:23:00 AM Patient Name: Yeimi Pierce Visit Number: [id number] Discharge Date: 01/28/2021 01:06:00 PM ATTENTION: The Clinical Documentation Specialists (CDI) and [facility] Coding Staff appreciate your assistance in clarifying documentation. Please respond to the clarification below the line at the bottom and electronically sign. The CDI & [facility] Coding staff will review the response and follow-up if needed. Please note: Queries are made part of the Legal Health Record. If you have any questions, please contact the author of this message via ITS. Dr. Daphne Waite Anemia is documented in the 01/26 Progress Note. History/Risk Factors: GI Bleed s/p EGD w/ Cautery, HTN, DM, GERD Clinical indicators: GI Bleed, Anemia Hemoglobin: 13.3, 11.8, 10.4, 9.9, 9.4, 9.3 Hematocrit: 37.5, 34.6, 30.3, 28.9, 25.8, 25.9 Treatment: Monitor, EGD w/ cautery In order to capture the severity of condition, please clarify the type of anemia and etiology if known:. Acute blood loss anemia Acute on chronic blood loss anemia Chronic blood loss anemia Iron deficiency anemia Unable to determine Other, please specify Acute blood loss anemia MTDD
== END 2021-01-28 13:06 | disposition home or self-care (01) | DRG 378 ==
LOC: EC 12:43 → 6NMEDSUR 16:30 → 4SSUR 01-25 01:51 → 6PED 01-25 22:45 → OBSVTOIN 01-27 08:23
PROVIDERS: ADMIT Internal Medicine; ATTEND Internal Medicine
PROC: 0W3P8ZZ Control Bleeding in Gastrointestinal Tract, Via Natural or Artificial Opening Endoscopic (ICD-10-PCS; principal; 2021-01-25 09:07)
DX: K55.21 Angiodysplasia of colon with hemorrhage (principal); D62 Acute posthemorrhagic anemia; E11.649 Type 2 diabetes mellitus with hypoglycemia without coma; Z20.822 Contact with and (suspected) exposure to COVID-19; I10 Essential (primary) hypertension; E03.9 Hypothyroidism, unspecified; E78.5 Hyperlipidemia, unspecified; K21.9 Gastro-esophageal reflux disease without esophagitis; Z79.890 Hormone replacement therapy; Z79.84 Long term (current) use of oral hypoglycemic drugs; Z79.899 Other long term (current) drug therapy; Z87.11 Personal history of peptic ulcer disease; Z90.710 Acquired absence of both cervix and uterus; Z87.891 Personal history of nicotine dependence; Z96.21 Cochlear implant status; Z80.9 Family history of malignant neoplasm, unspecified
CPT/HCPCS: 36415; 43270; 80048; 80053; 81001; 82272; 83036; 84484; 85025; 85027; 85610; 85730; 86850; 86900; 86901; 87635; 93005; 96374; 99284

== ENCOUNTER 2021-01-28 14:02 | Emergency (ER) | payer MEDICARE ==
[2021-01-28 14:30] VITALS: BP 110/70; PULSE 79; RESP 18; TEMP 98.4
--- NOTE | 2021-01-28 15:26 | ED ---
ENT HPI - General Chief complaint: ENT Stated complaint: Face swelling Time Seen by Provider: 01/28/21 15:07 Source: patient Mode of arrival: wheelchair Limitations: no limitations - History of Present Illness Initial comments: Is a 65-year-old female to history of GI bleed, diabetes, hypertension, lipidemia who presents or urgency department for right facial swelling. The patient was just discharged from the hospital today where she spent a few days here for GI bleed. She states that she is not to get any blood while she was here. Does not recall any new medications. She states that she was driving home and then noticed that she had some tenderness and swelling to the right preauricular area. She denies any fevers or chills. No dental pain or sore throat. No earaches. She states that she has no neck pain or tenderness. No recent trauma to the area. She states that she did have a meal after she left and did not have any pain with eating. She came here at the advice of her primary doctor for evaluation. She otherwise denies any other symptoms. No shortness of breath, cough, chest pain, nausea or vomiting, or diarrhea. - Related Data Home Medications Medication Instructions Recorded Confirmed Levothyroxine Sodium [Synthroid] 88 mcg PO DAILY 04/21/17 01/28/21 Multivitamins, Thera [Multivitamin 1 tab PO DAILY 04/21/17 01/28/21 (formulary)] Pravastatin Sodium [Pravachol] 20 mg PO DAILY 04/21/17 01/28/21 Vit C/E/Zn/Coppr/Lutein/Zeaxan 1 cap PO BID 04/21/17 01/28/21 [Preservision Areds 2 Softgel] lisinopriL [Prinivil] 5 mg PO DAILY 04/21/17 01/28/21 metFORMIN HCL [Glucophage] 850 mg PO BID 04/21/17 01/28/21 Ferrous Sulfate [Iron (65 MG 325 mg PO DAILY 07/01/20 01/28/21 Elemental)] Pantoprazole [Protonix] 40 mg PO BID 07/01/20 01/28/21 Semaglutide [Ozempic] 1 mg SQ RAMOS 07/01/20 01/28/21 Allergies Allergy/AdvReac Type Severity Reaction Status Date / Time No Known Allergies Allergy Verified 03/23/21 15:49 Review of Systems ROS Statement: Those systems with pertinent positive or pertinent negative responses have been documented in the HPI. ROS Other: All systems not noted in ROS Statement are negative. Past Medical History Past Medical History: Diabetes Mellitus, GI Bleed, Hyperlipidemia, Thyroid Disorder Additional Past Medical History / Comment(s): History of duodenal ulcer over 20 years ago. History of Any Multi-Drug Resistant Organisms: None Reported Past Surgical History: Heart Catheterization, Hysterectomy Additional Past Surgical History / Comment(s): left titanium ear implant Past Anesthesia/Blood Transfusion Reactions: No Reported Reaction Past Psychological History: No Psychological Hx Reported Smoking Status: Former smoker Past Alcohol Use History: Occasional Past Drug Use History: None Reported - Past Family History Mother Additional Family Medical History / Comment(s): blood cancer General Exam - General Exam Comments Initial Comments: Constitutional: Awake alert Appears comfortable Head: Normocephalic atraumatic Eyes: no conjunctival injection No scleral icterus EOMI pupils are 4 mm and reactive bilaterally ENT: There is some swelling over the angle of the mandible. This is tender to palpation and soft. There is no erythema, fluctuance, or induration to the area. Approximately 2 cm in diameter area. Patient has normal-appearing TMs and pressure auditory canal. Oral mucosa is moist, there are are multiple dental caries in periodontal disease however no identifiable periodontitis or. Dental abscess. Oropharynx is clear without any evidence for erythema or swelling. Neck: No JVD Supple, no lymphadenopathy Heart: Regular rate rhythm normal S1-S2 no murmurs Lungs: Clear to auscultation bilaterally No wheezing No rales Abdomen: Soft nondistended nontender Extremities: Non edematous DP pulses intact Radial pulses intact Neuro: A&Ox3 No focal neurologic deficits Psych: Appropriate mood and affect Limitations: no limitations Course Vital Signs 01/28/21 01/28/21 14:26 16:31 Temperature 98.4 F 98.4 F Pulse Rate 79 79 Respiratory 18 18 Rate Blood Pressure 110/70 110/70 O2 Sat by Pulse 98 98 Oximetry Medical Decision Making - Medical Decision Making Is a 65-year-old female who presents emergency report for right-sided facial swelling. The patient had some minimal swelling to the right angle of the mandible. He was tender to palpation however no erythema to the area. Was unsure if this was a lymph node or parotid gland. Ultrasound showed that there was some swelling of the parotid gland to the right. The patient may have some mild parotitis and I advised her to use warm compresses and sour candy at home. At this time I do not feel antibiotics are indicated. Told her to avoid NSAIDs and use Tylenol for pain because of her history of GI bleed. Follow-up is with Dr. russo. Return to [facility] if she has worsening swelling, fevers, chills, pain, or any other concerning symptoms. All questions answered. Disposition Clinical Impression: Parotitis Disposition: HOME SELF-CARE Condition: Stable Instructions (If sedation given, give patient instructions): Sialoadenitis (ED) Additional Instructions: Use warm compresses and get some sour candies to suck on. Tylenol for pain. Avoid Motrin because of your history of bleeding. Is patient prescribed a controlled substance at d/c from ED?: No Referrals: Daphne Waite MD [Primary Care Provider] - 1-2 days
--- NOTE | 2021-01-28 16:15 | US ---
EXAMINATION TYPE: US thyroid st tissue head/neck DATE OF EXAM: 01/28/2021 COMPARISON: NONE CLINICAL HISTORY: R facial swelling, ? lymph node vs parotitis. At patients area of swelling is the parotid gland. The appearance by ultrasound is similar to the left side. Findings could reflect mild parotitis. No suspicious solid or cystic mass or focal fluid collection s een on images saved looking up both right and left parotid glands. IMPRESSION: Asymmetric mild edematous change and heterogeneity of right parotid gland versus left pa rotid gland on images saved could reflect mild inflammatory change. No focal fluid collection or absc ess noted.
== END 2021-01-28 16:33 | disposition home or self-care (01) ==
LOC: EC 14:02
DX: K11.20 Sialoadenitis, unspecified (principal); K02.9 Dental caries, unspecified; K05.6 Periodontal disease, unspecified; E11.9 Type 2 diabetes mellitus without complications; I10 Essential (primary) hypertension; E78.5 Hyperlipidemia, unspecified; Z79.84 Long term (current) use of oral hypoglycemic drugs; Z87.891 Personal history of nicotine dependence
CPT/HCPCS: 76536; 99283

== ENCOUNTER → 2021-01-29 | Outpatient (CLI) | payer MEDICARE ==
--- NOTE | 2021-01-30 14:42 | MM ---
Reason for exam: screening (asymptomatic). Last mammogram was performed 1 year ago. History: Patient is postmenopausal. Benign left mammotome panel of the left breast, January 04, 2006. Physical Findings: A clinical breast exam by your physician is recommended on an annual basis and results should be correlated with mammographic findings. MG 3D Screening Mammo W/Cad Bilateral CC and MLO view(s) were taken. Prior study comparison: January 16, 2020, bilateral MG screening mammo w CAD. November 29, 2018, bilateral MG screening mammo w CAD. There are scattered fibroglandular densities. Finding: There are stable from 2020, fine, grouped/clustered calcifications in the middle position of the right breast 8cm from the nipple. Previous mammotome biopsy in the left breast. New finding since November 29, 2018. ASSESSMENT: Incomplete: need additional imaging evaluation, BI-RAD 0 RECOMMENDATION: Special view mammogram of the right breast. [facility] will attempt to contact patient to return for supplemental views.
== END | disposition home or self-care (01) ==
LOC: RADMAMWWP 14:37
PROVIDERS: ATTEND Internal Medicine
DX: Z12.31 Encounter for screening mammogram for malignant neoplasm of breast (principal)
CPT/HCPCS: 77063; 77067

== ENCOUNTER → 2021-02-27 | Outpatient (CLI) | payer MEDICARE ==
--- NOTE | 2021-02-27 11:50 | MM ---
Reason for exam: additional evaluation requested from abnormal screening. Last mammogram was performed 1 month ago. History: Patient is postmenopausal. Benign left mammotome panel of the left breast, January 04, 2006. Physical Findings: Nurse did not find any significant physical abnormalities on exam. MG Work Up Mamm w CAD RT CC with magnification, LM with magnification, and LM view(s) were taken of the right breast. Prior study comparison: January 29, 2021, bilateral MG 3d screening mammo w/cad. January 16, 2020, bilateral MG screening mammo w CAD. The breast tissue is heterogeneously dense. This may lower the sensitivity of mammography. Finding: There is a persistent 3mm in length, suspicious, grouped/clustered calcifications in the upper outer quadrant, middle posterior position of the right breast. These results were verbally communicated with the patient and result sheet given to the patient on 02/27/21. ASSESSMENT: Suspicious, BI-RAD 4 RECOMMENDATION: Stereotactic core biopsy of the right breast. Called Dr. Waite's office with mammographic findings and has scheduled an appointment for the patient for 03/20/21 at 2:[address] Mariscal. Biopsy scheduled for 03/21/21 at 8:00. PRELIMINARY REPORT CALLED AND FAXED TO DR. MARISCAL ON 02/27/21.
== END | disposition home or self-care (01) ==
LOC: RADMAMWWP 10:20
PROVIDERS: ATTEND Internal Medicine
DX: R92.8 Other abnormal and inconclusive findings on diagnostic imaging of breast (principal)
CPT/HCPCS: 77065

== ENCOUNTER → 2021-03-20 | Outpatient (CLI) | payer MEDICARE ==
[2021-03-20 14:23] VITALS: BP 126/74; PULSE 82; RESP 18; TEMP 98.4
--- NOTE | 2021-03-20 15:21 | P.GSHP ---
History of Present Illness H&P Date: 03/20/21 Chief Complaint: Mammographic abnormality right breast Yeimi is a 65-year-old white female seen in consultation for Dr. Waite regarding a mammographic abnormality in the right breast. She underwent a bilateral mammogram on 320 421. This revealed an area of concern in the right breast in the diagnostic reports mammogram was performed on 420 221. This revealed a persistent 3 mm in length suspicious area of group clustered calcifications in the upper quadrant of the right breast. Stereotactic core biopsy was recommended. She gets mammograms every year. She does not feel anything of concern in her breast. She is not complaining of any nipple discharge or skin changes. She's not had any recent trauma or infection in the breast. She has had a stereo biopsy in the past of the left breast which was benign. Caffeine: 1 cup/day or none nicotine : Negative Chocolate: Several times a week Hormones: Negative Family history: mother: leukemia Hormonal History: menarche: 14 , breast fed: yes, age at first : 18 menopause: 50 hormones: none BCP: none Surgical history: July 2020; EGD for bleeding/weak veins/anemia HGB got 6 units of blood, was transferred to [facility] January 2021: EGD cauterized vessels no surgery partial hysterectomy Medical History: diabetic weak veins in stomach hypothyroid Social History: nicotine: none alcohol: none drugs:none - Constitutional Constitutional: Denies chills, Denies fever - EENT Eyes: denies blurred vision, denies pain Ears: deny: decreased hearing, tinnitus Ears, nose, mouth and throat: Denies headache, Denies sore throat - Breasts Breasts: bilateral: as per HPI - Cardiovascular Cardiovascular: Denies chest pain, Denies shortness of breath - Respiratory Respiratory: Denies cough, Denies 7 - Gastrointestinal Gastrointestinal: Reports as per HPI - Genitourinary (Female) Comment: UTI in the past Genitourinary: Denies dysuria, Denies hematuria - Menstruation Menstruation: Reports post hysterectomy, Reports postmenopausal - Musculoskeletal Musculoskeletal: Denies myalgias - Integumentary Integumentary: Denies pruritus, Denies rash - Neurological Comment: restless leg syndrome - Psychiatric Psychiatric: Denies anxiety, Denies depression - Endocrine Comment: hypothyroid Endocrine: Reports weight change, Denies fatigue - Hematologic/Lymphatic Comment: none - Allergic/Immunologic Allergic/Immunologic: Reports as per HPI Past Medical History Past Medical History: Diabetes Mellitus, GI Bleed, Hyperlipidemia Additional Past Medical History / Comment(s): History of duodenal ulcer over 20 years ago. History of Any Multi-Drug Resistant Organisms: None Reported Past Surgical History: Heart Catheterization, Hysterectomy Additional Past Surgical History / Comment(s): left titanium ear implant july 2020 cauterization of duodenal ulcer Past Anesthesia/Blood Transfusion Reactions: No Reported Reaction Past Psychological History: No Psychological Hx Reported Smoking Status: Former smoker Past Alcohol Use History: Occasional Additional Past Alcohol Use History / Comment(s): wine ever couple crystal hs/holidays Past Drug Use History: None Reported - Past Family History Mother Additional Family Medical History / Comment(s): blood cancer Medications and Allergies Home Medications Medication Instructions Recorded Confirmed Type Levothyroxine Sodium [Synthroid] 88 mcg PO DAILY 04/21/17 03/20/21 History Multivitamins, Thera [Multivitamin 1 tab PO DAILY 04/21/17 03/20/21 History (formulary)] Pravastatin Sodium [Pravachol] 20 mg PO DAILY 04/21/17 03/20/21 History Vit C/E/Zn/Coppr/Lutein/Zeaxan 1 cap PO BID 04/21/17 03/20/21 History [Preservision Areds 2 Softgel] lisinopriL [Prinivil] 5 mg PO DAILY 04/21/17 03/20/21 History metFORMIN HCL [Glucophage] 850 mg PO DAILY 04/21/17 03/20/21 History Ferrous Sulfate [Iron (65 MG 325 mg PO DAILY 07/01/20 03/20/21 History Elemental)] Pantoprazole [Protonix] 40 mg PO BID 07/01/20 03/20/21 History Allergies Allergy/AdvReac Type Severity Reaction Status Date / Time No Known Allergies Allergy Verified 03/06/21 12:50 Surgical - Exam Vital Signs Temp Pulse Resp BP Pulse Ox 98.4 F 82 18 126/74 99 03/20/21 14:20 03/20/21 14:20 03/20/21 14:20 03/20/21 14:20 03/20/21 14:20 BMI 21.6 - General no distress - Eyes normal ocular movement - ENT normal pinna, normal mucosa - Neck no masses, trachea midline - Respiratory normal expansion, normal respiratory effort, clear to auscultation - Cardiovascular Rhythm: regular Heart Sounds: normal: S1, S2 - Abdomen Abdomen: soft, non tender, no guarding, no rigid, no rebound - Integumentary normal turgor - Neurologic no disoriented, no combative - Musculoskeletal normal gait - Psychiatric oriented to time, oriented to person, oriented to place, speech is normal, memory intact Breat exam: BRA: 38C inspection: grade 3 ptosis bilateral palpation: right breast: Positional exam fibrocystic changes no dominant masses or nodules of concern Right axilla: No adenopathy of concern Left breast: Multi-positional exam fibrocystic changes no dominant masses or nodules of concern Left axilla: No adenopathy of concern Results Mammogram reviewed with Dr. Norton from radiology Assessment and Plan Assessment: Impression: 1. Radiographic abnormality right breast 12 o'clock position 2. Fibrocystic breast changes 3. Diabetic 4. Restless leg syndrome Plan: 1. Stereotactic core biopsy right breast 2. Follow-up after stereotactic core biopsy Risks and benefits of procedure discussed with the patient and her . Risks include but are not limited to bleeding, infection, reaction to the anesthetic. If the lesion biopsied were to be discordant its possible that needle local excisional biopsy would be recommended. She and her understand and they wish to proceed. CC: Dr. Waite
== END ==
LOC: WWCWWP 13:47
PROVIDERS: ATTEND Surgery
DX: N60.12 Diffuse cystic mastopathy of left breast (principal); N60.11 Diffuse cystic mastopathy of right breast; E11.9 Type 2 diabetes mellitus without complications; G25.81 Restless legs syndrome; E78.5 Hyperlipidemia, unspecified; E03.9 Hypothyroidism, unspecified; Z79.84 Long term (current) use of oral hypoglycemic drugs; Z79.890 Hormone replacement therapy; Z87.891 Personal history of nicotine dependence

== ENCOUNTER → 2021-03-21 | Day surgery (SDC) | payer MEDICARE ==
[2021-03-21 07:23] VITALS: RESP 16
[2021-03-21 08:37] VITALS: BP 121/78; PULSE 67; TEMP 98.1
--- NOTE | 2021-03-21 12:19 | P.PCN ---
Date of Procedure: 03/21/21 Preoperative Diagnosis: Microcalcifications of concern right breast upper outer quadrant Postoperative Diagnosis: Same Procedure(s) Performed: Right breast stereotactic core biopsy Anesthesia: local Surgeon: Ximena Mariscal Condition: stable Disposition: same day Indications for Procedure: Microcalcifications of concern right breast Operative Findings: Microcalcifications noted in biopsy specimen Description of Procedure: Yeimi is a 65-year-old white female who on a mammogram was noted to have microcalcifications of concern in the upper outer quadrant of the right breast. Stereotactic core biopsy was recommended. Risks and benefits of the procedure were discussed with the patient. Alternatives such as watchful waiting (biopsy were not recommended. The patient understood and wished to proceed. The patient was brought to the stereotactic core biopsy room. The patient was positioned prone on the lo-rad table. A chief vendor quality film was obtained. The area of concern was identified. A stereo pair was obtained. The lesion was targeted using a lateral to medial approach. The breast was prepped using Betadine. 20 mL of 1% lidocaine were used to anesthetize the area of concern. A 9-gauge vacuum-assisted core rotating biopsy needle was driven to the correct c oordinates. The needle was fired. A post-fire film was obtained. The needle was noted to be in the correct location. 12 biopsy specimens were obtained. Radiograph of the specimen revealed the area of concern had been removed, microcalcifications were in the specimen. Following this a secure marked top hat clip was placed. The specimen was sent to pathology. The patient will follow with Dr. Mcdaniel next week.
--- NOTE | 2021-03-21 12:21 | MM ---
Stereotactic core biopsy right breast. HISTORY: Microcalcifications. The calcifications in question within the right breast were targeted by the undersigned. The examination was performed by the surgeon. Specimen radiograph demonstrates numerous calcifications within the specimen submitted. Post procedural mammogram demonstrates appropriate deployment of radiopaque clip marker. The patient tolerated the procedure well and left the department in stable condition. Pathology results are pending. IMPRESSION: Successful stereotactic core biopsy right breast with pathology results pending. Pathology Results: Benign RIGHT BREAST, STEREOTACTIC CORE BIOPSY: Fibrocystic changes including fibrosis and calcifications. Recommendation Follow up mammogram of the right breast in 6 months. PRERNA
== END ==
LOC: RADMAMWWP 07:01
PROVIDERS: ATTEND Surgery
DX: N60.11 Diffuse cystic mastopathy of right breast (principal); R92.1 Mammographic calcification found on diagnostic imaging of breast
CPT/HCPCS: 88305; 19081; A4648; J2001

== ENCOUNTER → 2021-03-28 | Outpatient (CLI) | payer MEDICARE ==
[2021-03-28 09:30] VITALS: BP 121/72; PULSE 71; RESP 18; TEMP 98.5
--- NOTE | 2021-03-28 10:01 | P.PN ---
Subjective Progress Note Date: 03/28/21 Principal diagnosis: Results of stereotactic core biopsy right breast Yeimi is a 65 year old female status post stereotactic core biopsy of the right breast on . Pathology was felt to be benign and concordant. It revealed fibrocystic changes including fibrosis and calcifications. The patient tolerated the procedure without difficulty. The postprocedure radiographs were reviewed. Objective - Vital Signs Vital signs: Vital Signs Temp 98.5 F 03/28/21 09:28 Pulse 71 03/28/21 09:28 Resp 18 03/28/21 09:28 BP 121/72 03/28/21 09:28 Pulse Ox 99 03/28/21 09:28 Intake & Output 03/27/21 03/28/21 03/28/21 18:59 06:59 18:59 Weight 61.235 kg - Constitutional General appearance: Present: average body habitus - EENT Eyes: Present: EOMI ENT: Present: hearing grossly normal - Neck Neck: Present: normal ROM - Respiratory Respiratory: bilateral: CTA - Cardiovascular Rhythm: regular Heart sounds: normal: S1, S2 - Integumentary Integumentary Comment(s): Progress mild ecchymosis is stereotactic core biopsy site, no evidence of hematoma or infection Integumentary: Present: normal turgor - Psychiatric Psychiatric: Present: A&O x's 3 Assessment and Plan Assessment: Impression: Patient status post right breast stereotactic core biopsy , pathology felt to be benign and concordant Plan: Repeat right breast mammogram in 6 months with physician exam at that time Cc:
== END ==
LOC: WWCWWP 08:46
PROVIDERS: ATTEND Surgery
DX: N60.11 Diffuse cystic mastopathy of right breast (principal); Z87.891 Personal history of nicotine dependence

== ENCOUNTER → 2021-11-13 | Outpatient (CLI) | payer MEDICARE ==
--- NOTE | 2021-11-17 08:55 | MM ---
Reason for exam: follow-up at short interval from prior study. Last mammogram was performed 8 months ago. History: Patient is postmenopausal. Benign MG stereo VAD BX RT of the right breast, March 21, 2021. Benign left mammotome panel of the left breast, January 04, 2006. Physical Findings: Nurse did not find any significant physical abnormalities on exam. MG Diagnostic Mammo RT w CAD CC and MLO view(s) were taken of the right breast. Prior study comparison: February 27, 2021, right breast MG work up mamm w CAD RT. January 29, 2021, bilateral MG 3d screening mammo w/cad. There are scattered fibroglandular densities. Previous mammotome biopsy in the right breast. No significant new findings when compared with previous films. These results were verbally communicated with the patient and result sheet given to the patient on 11/13/21. ASSESSMENT: Negative, BI-RAD 1 RECOMMENDATION: Return to routine screening mammogram schedule for both breasts. Back on schedule for January 2022.
== END | disposition home or self-care (01) ==
LOC: RADMAMWWP 14:18
PROVIDERS: ATTEND Internal Medicine
DX: R92.8 Other abnormal and inconclusive findings on diagnostic imaging of breast (principal); Z78.0 Asymptomatic menopausal state
CPT/HCPCS: 77065

== ENCOUNTER → 2022-06-02 | Outpatient (CLI) | payer MEDICARE ==
--- NOTE | 2022-06-02 09:47 | BD ---
EXAMINATION TYPE: Axial Bone Density DATE OF EXAM: 06/02/2022 COMPARISON: 06/12/2015 CLINICAL HISTORY: 66 years year old Female. ICD-10 CODE: Z78.[address] Height: 65 IN Weight: 156 LBS RISK FACTORS HISTORY OF: Active: YES Diet low in dairy products/other sources of calcium: YES Postmenopausal woman: TOTAL HYST AGE 51 MEDICATIONS: Thyroid Medications: YES Which medication: Levothyroxine How Lon YEARS Additional Medications: LEVOTHYROXINE, MULTI VIT, IRON,OZEMPIC, METFORMIN,LISINOPRIL, [place], [place] AVASTATIN, EZETIMIBE, PRESERVISION, LYSINE, EXAM MEASUREMENTS: Bone mineral densitometry was performed using the [employer] System. Bone mineral density as measured about the Lumbar spine is: ----- L1-L4(G/cm2): 1.355 T Score Values are as follows: ----- L1: 1.1 ----- L2: 1.8 ----- L3: 1.5 ----- L4: 1.3 ----- L1-L4: 1.5 Bone mineral density has: Decreased -7.6% since study of: 06/12/2015 Bone mineral density about the R hip (g/cm2): 1.112 Bone mineral density about the L hip (g/cm2): 1.101 T Score values are as follows: -----R Neck: 0.5 -----L Neck: 0.5 -----R Total: 1.3 -----L Total: 1.2 Bone mineral density has: Decreased -10.4% since study of: 06/12/2015 FRAX%s: The graph provided illustrates a 6.4 chance for a major osteoporotic fx and a 0.2 chance for the hips probability for fx in 10 years time. IMPRESSION: Normal (Values between +1 and -1 indicate normal bone mass). Consider repeating this study in 5 year s or sooner if there is some new clinical indication. NOTE: T-SCORE=SD OF THE YOUNG ADULT MEAN.
--- NOTE | 2022-06-03 17:53 | MM ---
Reason for Exam: Screening (asymptomatic). Last mammogram was performed 1 year(s) and 4 month(s) ago. Patient History: Menarche at age 13. First Full-Term at age 19. Hysterectomy at age 53. Postmenopausal. Patient has history of breast feeding. 03/21/2021, Benign Core Biopsy on the right side. 01/04/2006, Benign Core Biopsy on the left side. Risk Values: Maile 5 year model risk: 1.8%. NCI Lifetime model risk: 6.5%. Prior Study Comparison: 09/01/2017 Bilateral Screening Mammogram, [facility]. 11/29/2018 Bilateral Screening Mammogram, [facility]. 01/16/2020 Bilateral Screening Mammogram, [facility]. 01/29/2021 Bilateral Screening Mammogram, [facility]. 02/27/2021 Right Diagnostic Mammogram, [facility]. 11/13/2021 Right Diagnostic Mammogram, [facility]. Tissue Density: There are scattered fibroglandular densities. Findings: Analyzed By CAD. There is a core marker within the right breast. A core marker and a lobular density within the left breast this is stable from comparison. No suspicious groups of microcalcifications, spiculated or lobular masses, architectural distortion or other secondary signs of malignancy are mammographically apparent. Overall Assessment: Benign, BI-RAD 2 Management: Diagnostic Mammogram of both breasts in 1 year. A negative mammogram report should not preclude additional follow up of suspicious palpable abnormalities. Patient should continue monthly self breast exam. A clinical breast exam by your physician is recommended on an annual basis and results should be correlated with mammographic findings. Electronically signed and approved by: Fito Nogueira D.O. Radiologis
== END | disposition home or self-care (01) ==
LOC: RADMAMWWP 08:37
PROVIDERS: ATTEND Internal Medicine
DX: Z12.31 Encounter for screening mammogram for malignant neoplasm of breast (principal); Z78.0 Asymptomatic menopausal state
CPT/HCPCS: 77063; 77067; 77080

== ENCOUNTER → 2023-09-03 | Outpatient (CLI) | payer MEDICARE ==
--- NOTE | 2023-09-03 09:01 | MM ---
Reason for Exam: Additional evaluation requested from prior study. Last mammogram was performed 1 year(s) and 3 month(s) ago. Patient History: Menarche at age 13. First Full-Term at age 19. Hysterectomy at age 53. Postmenopausal. Patient has history of breast feeding. 03/21/2021, Benign Core Biopsy on the right side. 01/04/2006, Benign Core Biopsy on the left side. Risk Values: Maile 5 year model risk: 1.8%. NCI Lifetime model risk: 6.3%. Tissue Density: There are scattered fibroglandular densities. Findings: Analyzed By CAD. Biopsy clip within the right breast. Stable chronic lobular nodularity within the left breast with associated biopsy clip. No new suspicious masses, architectural distortion, or calcifications within either breast. Overall Assessment: Benign, BI-RAD 2 Management: Screening Mammogram of both breasts in 1 year. A clinical breast exam by your physician is recommended on an annual basis and results should be correlated with mammographic findings. This exam should not preclude additional follow-up of suspicious palpable abnormalities. Results were given to the patient verbally at the time of exam. Note on Maile scores and lifetime risk: 1. A Maile score greater than 3% is considered moderate risk. If this is the case, consider specialist referral to assess eligibility for a risk reducing agent. If overall lifetime risk for the development of breast cancer is 20% or higher, the patient may qualify for future screening with alternating mammogram and breast MRI. Electronically signed and approved by: Omar Zuniga D.O.
== END | disposition home or self-care (01) ==
LOC: RADMAMWWP 08:42
PROVIDERS: ATTEND Internal Medicine
DX: R92.323 Mammographic fibroglandular density, bilateral breasts (principal); Z78.0 Asymptomatic menopausal state
CPT/HCPCS: 77066; G0279; 77062

== ENCOUNTER → 2024-03-13 | Outpatient (CLI) | payer MEDICARE ==
--- NOTE | 2024-03-13 09:20 | US ---
EXAMINATION TYPE: US liver DATE OF EXAM: 03/13/2024 COMPARISON: NONE CLINICAL INDICATION: Female, 68 years old with history of R94.5 ABNORMAL RESULTS OF LIVER FUNCTION ST UDIES; Elevated liver enzymes TECHNIQUE: Multiple sonographic images of the right upper quadrant are obtained. FINDINGS: EXAM MEASUREMENTS: Liver Length: 18.2 cm Gallbladder Wall: 0.2 cm CBD: 0.4 cm Right Kidney: 10.7 x 4.4 x 4.5 cm ROOF DESIGNER NOTES:*Limitations due to overlying bowel gas Pancreas: visualized portions appear wnl Liver: enlarged, attenuating , no suspicious masses or dilated ducts or cystic structures. Gallbladder: no evidence of stones Evidence for sonographic Jiménez's sign: no CBD: limited evaluation Right Kidney: no evidence of hydronephrosis IMPRESSION: 1. No evidence for acute process. 2. Hepatic steatosis. No suspicious masses.
== END | disposition home or self-care (01) ==
LOC: RADUSWWP 08:17
PROVIDERS: ATTEND Internal Medicine
DX: K76.0 Fatty (change of) liver, not elsewhere classified (principal); R94.5 Abnormal results of liver function studies
CPT/HCPCS: 76705

== ENCOUNTER → 2024-08-18 | Outpatient (CLI) | payer MEDICARE ==
[2024-08-18 14:48] LABS: African American GFR (CKD) >90 (>60 ml/min/1.73 sqM); Blood Urea Nitrogen 20 mg/dL (7-17); Non-African American GFR(CKD) 81 (>60 ml/min/1.73 sqM)
--- NOTE | 2024-08-18 17:26 | CT ---
EXAMINATION TYPE: CT abdomen pelvis w con CT DLP: 1320 mGycm, Automated exposure control for dose reduction was used. DATE OF EXAM: 08/18/2024 4:36 PM COMPARISON: Ultrasound liver 03/13/2024 CLINICAL INDICATION:Female, 68 years old with history of R10.9 ABD PAIN; Abdominal pain around belly button area TECHNIQUE: Standard CT of the abdomen and pelvis following the administration of 100 cc of Isovue 3 00 IV contrast material and oral contrast. Coronal and sagittal reformats were performed. FINDINGS: LOWER CHEST: Unremarkable ABDOMEN LIVER: Diffusely hypoattenuating parenchyma. No focal lesion identified. GALLBLADDER AND BILE DUCTS: Unremarkable. PANCREAS: Unremarkable. SPLEEN: Unremarkable. ADRENAL GLANDS: Unremarkable. KIDNEYS AND URETERS: No evidence of hydronephrosis or renal calculus. The knees enhance symmetrically . Contrast is demonstrated within both collecting systems on the delayed phase. PELVIS BLADDER: Unremarkable REPRODUCTIVE: The uterus is surgically absent. ABDOMEN & PELVIS STOMACH AND BOWEL: Mid duodenal diverticulum. There is focal narrowing of the third portion of the du odenum between the SMA and aorta with a aortomesenteric distance of 7 mm. The aortomesenteric angle i s approximately 21 degrees. Enteric contrast reaches the distal small bowel. Few scattered colonic d iverticula without evidence for acute diverticulitis. No evidence of bowel obstruction. PERITONEUM: No evidence of pneumoperitoneum or free fluid. VASCULATURE: No evidence of aortic aneurysm. Pelvic phleboliths. MUSCULOSKELETAL: No acute osseous abnormalities. Mild retrolisthesis of L5 on S1 without pars defects . Degenerative disc disease L5-S1. LYMPH NODES: No evidence for lymphadenopathy. SOFT TISSUE/ABDOMINAL WALL: Tiny fat filled umbilical hernia. IMPRESSION: 1. No CT evidence for an acute dialysis catheter process. 2. Focal narrowing of the SMA aorta with reduced aortomesenteric distance and angle. No significant u pstream dilatation. 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 Correlate clinically. 3. Hepatic steatosis. [facility], , 08/18/2024 5:24 PM
== END | disposition home or self-care (01) ==
LOC: RADCTMAIN 14:05
PROVIDERS: ATTEND Internal Medicine
DX: R10.9 Unspecified abdominal pain
CPT/HCPCS: 36415; 74177; 82565; 84520

== ENCOUNTER → 2024-08-31 | Outpatient (CLI) | payer MEDICARE ==
[2024-08-31 10:39] LABS: Basophils # (A) 0.03 X 10*3/uL (0.00-0.10); Basophils % (A) 0.5 %; Eosinophils # (A) 0.36 X 10*3/uL (0.04-0.35); Eosinophils % (A) 6.4 %; HCT 40.4 % (37.2-46.3); HGB 13.5 g/dL (12.0-15.0); Lymphocytes # (A) 1.32 X 10*3/uL (0.90-5.00); Lymphocytes % (A) 23.5 %; MCH 31.3 pg (27.0-32.0); MCHC 33.4 g/dL (32.0-37.0); MCV 93.7 FL (80.0-97.0); Monocytes # (A) 0.58 X 10*3/uL (0.20-1.00); Monocytes % (A) 10.3 %; NRBC Per 100 WBC 0 X 10*3/uL (0.00-0.01); Neutrophils # (A) 3.31 X 10*3/uL (1.80-7.70); Neutrophils % (A) 58.9 %; Platelet Count 159 X 10*3/uL (140-440); RBC 4.31 X 10*6/uL (4.10-5.20); RDW 11.7 % (11.5-14.5); WBC 5.62 X 10*3/uL (4.50-10.00)
== END | disposition home or self-care (01) ==
LOC: LABPAT 07:50
PROVIDERS: ATTEND Surgery
CPT/HCPCS: 85025; 86850; 86900; 86901; 93005

== ENCOUNTER 2024-09-12 05:38 | Day surgery (SDC) | payer MEDICARE ==
[2024-09-07 13:56] VITALS: BMI 24.1
[2024-09-12 06:46] LABS: Glucose,Whole Blood 114 mg/dL (70-110)
[2024-09-12] MEDS: IV FLUID CONTINUATION 1,000 ML IV ONE ×2 (06:52→10:10)
[2024-09-12] MEDS: LACTATED RINGERS 1,000 ML IV SCH (06:52)
[2024-09-12] MEDS: LIDOCAINE 1% (10MG/ML) FOR IV START INTRADERMA PRN (06:53)
[2024-09-12] MEDS: ACETAMINOPHEN TAB 500 MG TAB PO PRN (06:53)
[2024-09-12] MEDS ORDERED: fentaNYL (PF) 50 MCG/ML 2 ML AMP IV PRN (07:00)
[2024-09-12] MEDS: DEXAMETHASONE SOD PHOSPHATE 4 MG/ML 1 ML VIAL IV ONE (07:07)
[2024-09-12] MEDS: HEPARIN SODIUM,PORCINE 5,000 UNIT/ML 1 ML VIAL SQ PRN (07:07)
[2024-09-12] MEDS: ONDANSETRON 4 MG/2 ML VIAL IVP ONE (07:07)
[2024-09-12] MEDS: MIDAZOLAM 2 MG/2 ML VIAL IV ONE (07:11)
[2024-09-12] MEDS ORDERED: ROPIVACAINE 5 MG/ML 30 ML VIAL ONE (07:29)
[2024-09-12] MEDS ORDERED: KETOROLAC 15 MG/ML 1 ML VIAL ONE (07:29)
[2024-09-12] MEDS ORDERED: DEXAMETHASONE SOD PHOSPHATE 4 MG/ML 1 ML VIAL ONE (07:29)
[2024-09-12] MEDS ORDERED: NEOSTIGMINE 1 MG/ML 10 ML VIAL ONE (07:29)
[2024-09-12] MEDS ORDERED: LIDOCAINE 1% INJ 10MG/ML (20 ML MDV) ONE (07:29)
[2024-09-12] MEDS ORDERED: PROPOFOL 10 MG/ML 20 ML VIAL IV ONE (07:29)
[2024-09-12] MEDS ORDERED: SUCCINYLCHOLINE CHLORIDE 200 MG/10 ML VIAL IV ONE (07:29)
[2024-09-12] MEDS ORDERED: ROCURONIUM 10 MG/ML (5 ML VIAL) IV ONE (07:29)
[2024-09-12] MEDS ORDERED: MIDAZOLAM 2 MG/2 ML VIAL ONE (07:29)
[2024-09-12] MEDS ORDERED: FLUMAZENIL 0.1 MG/ML 5 ML VIAL IVP ONE (07:29)
[2024-09-12] MEDS ORDERED: fentaNYL (PF) 50 MCG/ML 2 ML AMP ONE (07:29)
[2024-09-12] MEDS ORDERED: GLYCOPYRROLATE 0.2 MG/ML 2 ML VIAL ONE (07:29)
[2024-09-12] MEDS: LIDOCAINE 1%-EPI 1:100,000 20 ML VIAL SQ ONE (07:44)
[2024-09-12] MEDS: LACTATED RINGERS 1,000 ML IV ONE (08:26)
[2024-09-12 08:40] VITALS: RESP 16; TEMP 97.8
--- NOTE | 2024-09-12 08:44 | P.OP ---
Date of Procedure: 09/12/24 Preoperative Diagnosis: Incisional hernia Postoperative Diagnosis: Incisional hernia Procedure(s) Performed: Laparoscopic robotic repair of incisional hernia Anesthesia: FABRIZIO Surgeon: Jevon Obrien Estimated Blood Loss (ml): 5 Pathology: none sent Condition: stable Disposition: PACU Description of Procedure: The patient was placed on the operating table in the supine position. He received general anesthesia. His abdomen was prepped and draped usual fashion. Using a 5 mm optical trocar under direct visualization the peritoneal cavity was entered in the left upper quadrant. The abdomen was then insufflated. The laparoscope was placed back into the perineal cavity. Next a 8 mm robotic trocar was placed in the left lower quadrant and a 12 mm robotic trocar was placed in the left lateral position. The original 5 mm trocar was exchanged for a 8 mm robotic trocar. The patient's placed in the left side up position. And the patient was docked to the robot. The incisional hernia was visualized. Using hook cautery the peritoneum over the incisional hernia was excised. There were adhesions noted along the midline scar. These were lysed with sharp dissection. The fascial opening was repaired using 0V LOC suture. Next a piece of 11 cm round ventral light ST mesh was placed into the. Cavity and secured with 2 OV lock suture. A four-quadrant transversus abdominis plane block was performed with 1% local Xylocaine. The patient was undocked the robot. The needles were retrieved. The fascia of the 12 mm trocar site was closed with 0 Ethibond suture. Skin was closed interrupted 3-0 Monocryl suture. Dermabond dressings was applied. Patient tolerated procedure well and was sent to recovery room stable condition.
[2024-09-12] MEDS: HYDROmorphone 0.5 MG/0.5 ML SYRINGE IVP PRN (09:21)
[2024-09-12 12:06] VITALS: BP 120/74; PULSE 88
--- NOTE | 2024-09-12 13:24 | P.ANPRN ---
Procedure Note - Anesthesia - Nerve Block Performed Bilateral Rectus Abdominis Single Time Out Performed: Yes Date of Procedure: 09/12/24 Procedure Start Time: 06:57 Procedure Stop Time: 07:01 Location of Patient: PreOp Indication: Acute Post-Operative Pain, Requested by Surgeon Sedation Type: Sedate with meaningful contact maintained Preparation: Sterile Prep Position: Supine Needle Types: Pajunk Needle Gauge: 21 Ultrasound used to visualize needle placement: Yes Ultrasound used to observe medication spread: Yes Blood Aspirated: No Pain Paresthesia on Injection Noted: No Resistance on Injection: Normal Image Stored and Saved: Yes Events: Uneventful and Well Tolerated (Ropivacaine 0.5% 20 cc plus dexamethasone 4 mg given bilaterally)
== END 2024-09-12 12:10 | disposition home or self-care (01) ==
LOC: OR 05:38
PROVIDERS: ATTEND Surgery
DX: K43.2 Incisional hernia without obstruction or gangrene (principal); I10 Essential (primary) hypertension; E78.5 Hyperlipidemia, unspecified; E11.9 Type 2 diabetes mellitus without complications; K21.9 Gastro-esophageal reflux disease without esophagitis; K26.9 Duodenal ulcer, unspecified as acute or chronic, without hemorrhage or perforation; E03.9 Hypothyroidism, unspecified; Z79.84 Long term (current) use of oral hypoglycemic drugs; Z79.890 Hormone replacement therapy; Z79.899 Other long term (current) drug therapy
CPT/HCPCS: 64488; 49591; C1781; J2250; J1644; J1100; J0690; J2405; J1171

== ENCOUNTER → 2024-10-11 | Outpatient (CLI) | payer MEDICARE ==
--- NOTE | 2024-10-11 15:30 | MM ---
Reason for Exam: Screening (asymptomatic). Last mammogram was performed 1 year(s) and 2 month(s) ago. Patient History: Menarche at age 13. First Full-Term at age 19. Hysterectomy at age 53. Postmenopausal. Patient has history of breast feeding. 03/21/2021, Benign Core Biopsy on the right side. 01/04/2006, Benign Core Biopsy on the left side. Risk Values: Maile 5 year model risk: 1.8%. NCI Lifetime model risk: 6.0%. Prior Study Comparison: 11/13/2021 Right Diagnostic Mammogram, [facility]. 06/02/2022 Bilateral MG 3D screening mammo w/cad, [facility]. 09/03/2023 Bilateral MG 3D diag mammo w/cad [facility], [facility]. Tissue Density: There are scattered areas of fibroglandular density. Findings: Analyzed By CAD. Bilateral breast biopsy clips. Right breast: There is no suspicious group of microcalcifications or new suspicious mass. Left breast: There is no suspicious group of microcalcifications or new suspicious mass. Overall Assessment: Negative, BI-RAD 1 Management: Screening Mammogram of both breasts in [address] [facility] will attempt to contact patient to return for supplemental views and ultrasound if indicated. Patient should continue monthly self-breast exams. A clinical breast exam by your physician is recommended on an annual basis. This exam should not preclude additional follow-up of suspicious palpable abnormalities. Note on Maile scores and lifetime risk: 1. A Maile score greater than 3% is considered moderate risk. If this is the case, consider specialist referral to assess eligibility for a risk reducing agent. 2. If overall lifetime risk for the development of breast cancer is 20% or higher, the patient may qualify for future screening with alternating mammogram and breast MRI. [facility], , 10/11/2024 3:27 PM. Electronically signed and approved by: Kwan James DO
== END | disposition home or self-care (01) ==
LOC: RADMAMWWP 10:28
PROVIDERS: ATTEND Internal Medicine
DX: Z12.31 Encounter for screening mammogram for malignant neoplasm of breast (principal); Z78.0 Asymptomatic menopausal state; R92.323 Mammographic fibroglandular density, bilateral breasts
CPT/HCPCS: 77063; 77067

== ENCOUNTER 2025-03-10 01:16 | Emergency (ER) | payer MEDICARE ==
[2025-03-10 01:40] VITALS: RESP 18; TEMP 100.1
[2025-03-10 01:40] LABS: Glucose,Whole Blood 185 mg/dL (70-110)
[2025-03-10] MEDS: SODIUM CHLORIDE 0.9% 500 ML 500 ML IV STA (02:30)
[2025-03-10] MEDS: ONDANSETRON 4 MG/2 ML VIAL IVP STA (02:30)
[2025-03-10] MEDS: MORPHINE SULFATE 4 MG/ML SYRINGE IV STA ×2 (02:30→03:58)
[2025-03-10 02:43] LABS: Basophils # (A) 0.01 10*3/uL (0.00-0.10); Basophils % (A) 0.1 %; Eosinophils # (A) 0.02 10*3/uL (0.04-0.35); Eosinophils % (A) 0.2 %; HCT 39.9 % (37.2-46.3); HGB 14.2 g/dL (12.0-15.0); Lymphocytes # (A) 0.81 10*3/uL (0.90-5.00); Lymphocytes % (A) 8.6 %; MCH 32.5 pg (27.0-32.0); MCHC 35.6 g/dL (32.0-37.0); MCV 91.3 fL (80.0-97.0); Mean Platelet Volume 11.2 fL (9.5-12.2); Monocytes % (A) 4.2 %; Neutrophils # (A) 8.18 10*3/uL (1.80-7.70); Neutrophils % (A) 86.7 %; Platelet Count 157 10*3/uL (140-440); RBC 4.37 10*6/uL (4.10-5.20); RDW 11.9 % (11.5-14.5); WBC 9.44 10*3/uL (4.50-10.00)
[2025-03-10 03:03] LABS: ALT 70 U/L (4-34); AST 57 U/L (14-36); African American GFR (CKD) >90 (>60 ml/min/1.73 sqM); Alkaline Phosphatase 69 U/L (38-126); Amylase 76 U/L (30-110); Anion Gap 16 mmol/L; Blood Urea Nitrogen 22 mg/dL (7-17); C Reactive Protein <0.5 mg/dL (<1.0); Calcium 10.5 mg/dL (8.4-10.2); Carbon Dioxide 22 mmol/L (22-30); Chloride 100 mmol/L (98-107); Glucose 183 mg/dL (74-99); Lipase 205 U/L (23-300); Non-African American GFR(CKD) >90 (>60 ml/min/1.73 sqM); Potassium 4.3 mmol/L (3.5-5.1); Sodium 138 mmol/L (137-145); Total Bilirubin 0.9 mg/dL (0.2-1.3)
[2025-03-10 04:02] LABS: Appearance,Urine Clear (Clear); Bacteria,Urine Rare /hpf; Bilirubin,Urine Negative (Negative); Blood,Urine Negative (Negative); Budding Yeast,Urine Rare /hpf; Color,Urine Yellow; Glucose,Urine (UA) Negative (Negative); Hyaline Casts,Urine 8 /lpf (0-2); Ketones,Urine 1+ (Negative); Leukocyte Esterase,Urine Small (Negative); Mucus,Urine Rare /hpf; Nitrite,Urine Negative (Negative); Protein,Urine Trace (Negative); RBC,Urine 1 /hpf (0-5); Specific Gravity,Urine 1.025 (1.001-1.035); Squamous Epithelial Cell,Urine 1 /hpf (0-4); Urobilinogen,Urine <2.0 mg/dL (<2.0); WBC,Urine 4 /hpf (0-5)
[2025-03-10 05:13] VITALS: BP 119/81; PULSE 79
--- NOTE | 2025-03-10 05:18 | ED ---
Nausea/Vomiting/Diarrhea HPI - General Chief complaint: Nausea/Vomiting/Diarrhea Stated complaint: NV right hip pain Time Seen by Provider: 03/10/25 02:02 Source: patient, family Mode of arrival: wheelchair - History of Present Illness Initial comments: This patient is a 69-year-old woman with history of chronic hip pain taking opioid medication, who presents with complaint that she is having nausea and vomiting as well as worsening hip pain. The patient does note that she is out of her pain medication currently. She has not had other symptoms including no fever or chills. No hematemesis, no bloody or tarry stools. Pain is diffuse, migrate throughout the abdomen and cramping. At times severe at times moderate. MD complaint: nausea, vomiting Onset/Timin -: days(s) Description of Vomiting: food contents Location: diffuse Radiation: none Severity: moderate Quality: cramping, aching Consistency: constant Improves with: none Worsens with: none Associated Symptoms: nausea/vomiting, other (Chronic hip pain) - Related Data Home Medications Medication Instructions Recorded Confirmed Levothyroxine Sodium [Synthroid] 88 mcg PO DAILY 04/21/17 09/12/24 Multivitamins, Thera [Multivitamin 1 tab PO DAILY 04/21/17 09/12/24 (formulary)] Pravastatin Sodium [Pravachol] 20 mg PO DAILY 04/21/17 09/12/24 Vit C/E/Zn/Coppr/Lutein/Zeaxan 1 cap PO BID 04/21/17 09/12/24 [Preservision Areds 2 Softgel] lisinopriL [Prinivil] 5 mg PO DAILY 04/21/17 09/12/24 metFORMIN HCL [Glucophage] 850 mg PO DAILY 04/21/17 09/12/24 Ferrous Sulfate [Iron (65 MG 325 mg PO DAILY 07/01/20 09/12/24 Elemental)] Pantoprazole [Protonix] 40 mg PO BID 07/01/20 09/12/24 Semaglutide [Ozempic] 1 mg SQ TH 09/07/24 09/12/24 Previous Rx's Medication Instructions Recorded Acetaminophen Tab [Tylenol] 650 mg PO Q6H #30 tab 09/12/24 Docusate [Colace] 100 mg PO BID #20 capsule 09/12/24 Ibuprofen [Motrin] 600 mg PO Q6HR PRN #40 tab 09/12/24 oxyCODONE HCL [OxyIR] 5 mg PO Q6H PRN 3 Days #10 tab 09/12/24 HYDROcodone/APAP 5-325MG [[place] 1 tab PO Q4HR PRN 3 Days #18 tab 03/10/25 5-325] Ondansetron Odt [Zofran ODT] 4 mg PO Q8HR PRN #10 tab 03/10/25 Allergies Allergy/AdvReac Type Severity Reaction Status Date / Time No Known Allergies Allergy Verified 03/10/25 01:40 Review of Systems ROS Statement: Those systems with pertinent positive or pertinent negative responses have been documented in the HPI. ROS Other: All systems not noted in ROS Statement are negative. Constitutional: Denies: fever, chills, weakness Respiratory: Denies: cough, dyspnea Cardiovascular: Denies: chest pain, palpitations Gastrointestinal: Reports: abdominal pain, nausea, vomiting. Denies: diarrhea, constipation, hematemesis, melena, hematochezia Genitourinary: Denies: dysuria, hematuria Musculoskeletal: Reports: as per HPI, arthralgia Skin: Denies: rash Neurological: Denies: headache, weakness, numbness Past Medical History Past Medical History: Diabetes Mellitus, GERD/Reflux, Hyperlipidemia, Hypertension, Thyroid Disorder Additional Past Medical History / Comment(s): History of duodenal ulcer over 20 years ago. History of Any Multi-Drug Resistant Organisms: None Reported Past Surgical History: Heart Catheterization, Hysterectomy Additional Past Surgical History / Comment(s): left titanium ear implant july 2020, cauterization of duodenal ulcer, egd, colonoscopy, Past Anesthesia/Blood Transfusion Reactions: Motion Sickness Additional Past Anesthesia/Blood Transfusion Reaction / Comment(s): VERTIGO Past Psychological History: No Psychological Hx Reported Smoking Status: Former smoker Past Alcohol Use History: None Reported Past Drug Use History: None Reported - Past Family History Mother Family Medical History: Cancer Additional Family Medical History / Comment(s): blood cancer General Exam General appearance: alert, in no apparent distress Head exam: Present: atraumatic, normocephalic Eye exam: Present: normal appearance. Absent: scleral icterus, conjunctival injection Neck exam: Present: normal inspection Respiratory exam: Present: normal lung sounds bilaterally. Absent: respiratory distress, wheezes, rales, rhonchi, stridor, accessory muscle use Cardiovascular Exam: Present: regular rate, normal rhythm, normal heart sounds. Absent: systolic murmur, diastolic murmur, rubs, gallop GI/Abdominal exam: Present: soft. Absent: distended, tenderness, guarding, rebound, rigid, mass Extremities exam: Present: normal inspection, normal capillary refill. Absent: pedal edema, calf tenderness Back exam: Present: normal inspection. Absent: CVA tenderness (R), CVA tenderness (L) Neurological exam: Present: alert Skin exam: Present: warm, dry, intact, normal color. Absent: rash Course Vital Signs 03/10/25 03/10/25 03/10/25 01:37 03:12 05:11 Temperature 100.1 F H Pulse Rate 83 87 79 Respiratory 18 18 18 Rate Blood Pressure 137/84 134/66 119/81 O2 Sat by Pulse 96 96 95 Oximetry Medical Decision Making - Medical Decision Making Was pt. sent in by a medical professional or institution (, PA, PUBLIC HEALTH ADMINISTRATOR, urgent care, hospital, or [place] health care facility...) When possible be specific @ -[No] Did you speak to anyone other than the patient for history (EMS, parent, family, police, friend...)? What history was obtained from this source @ -[No] Did you review nursing and triage notes (agree or disagree)? Why? @ -[I reviewed and agree with nursing and triage notes] Were old charts reviewed (outside hosp., previous admission, EMS record, old EKG, old radiological studies, urgent care reports/EKG's, [place] health care facility records)? Report findings @ -[No old charts were reviewed] Differential Diagnosis (chest pain, altered mental status, abdominal pain women, abdominal pain men, vaginal bleeding, weakness, fever, dyspnea, syncope, headache, dizziness, GI bleed, back pain, seizure, CVA, palpatations, mental health, musculoskeletal)? @ -[Differential vomiting: Appendicitis, Cholecystitis, diverticulosis, ischemic bowel, pancreatitis, hepatitis, UTI, gastroenteritis, AAA, incarcerated hernia, bowel obstruction, constipation, inflammatory bowel, hepatitis, peptic ulcer disease, splenic i nfarction, perforated viscus, , this is not meant to be an all-inclusive list Differential Musculoskeletal Muscular strain, contusion, ligament sprain, fracture, arthritis, septic arthritis, bursitis, cellulitis, muscle spasm, nerve compression, DVT, arterial occlusion, herpes zoster, electrolyte abnormality, tumor.... This is not meant to be in all inclusive list EKG interpreted by me (3pts min.). @ -[As above] X-rays interpreted by me (1pt min.). @ -[None done] CT interpreted by me (1pt min.). @ -[None done] U/S interpreted by me (1pt. min.). @ -[None done] What testing was considered but not performed or refused? (CT, X-rays, U/S, labs)? Why? @ -[None] What meds were considered but not given or refused? Why? @ -[None] Did you discuss the management of the patient with other professionals (professionals i.e. , PA, PUBLIC HEALTH ADMINISTRATOR, lab, RT, psych nurse, sexual assault social worker, mash tub cooker operator, teacher, loan review officer, director of casework department)? Give summary @ -[No] Was smoking cessation discussed for >3mins.? @ -[No] Was critical care preformed (if so, how long)? @ -[No] Were there social determinants of health that impacted care today? How? (Homelessness, low income, unemployed, alcoholism, drug addiction, transportation, low edu. Level, literacy, decrease access to med. care, fci, rehab)? @ -[No] Was there de-escalation of care discussed even if they declined (Discuss DNR or withdrawal of care, Hospice)? DNR status @ -[No] What co-morbidities impacted this encounter? (DM, HTN, Smoking, COPD, CAD, Cancer, CVA, ARF, Chemo, Hep., AIDS, mental health diagnosis, sleep apnea, morbid obesity)? @ -[None] Was patient admitted / discharged? Hospital course, mention meds given and route, prescriptions, significant lab abnormalities, going to OR and other pertinent info. @ -[Patient is a 69-year-old woman taking narcotic pain medicine for chronic hip pain who has run out of medication. The patient may have component of withdrawal. She does feel better after receiving medication here. Her history and physical exam are otherwise benign not suggestive of infectious or surgical process. Discussed appropriate further care and follow-up as well as return parameters Undiagnosed new problem with uncertain prognosis? @ -[No] Drug Therapy requiring intensive monitoring for toxicity (Heparin, Nitro, Insulin, Cardizem)? @ -[No] Were any procedures done? @ -[No] Diagnosis/symptom? @ -Chronic hip pain Acute nausea and vomiting Acute, or Chronic, or Acute on Chronic? @ -[ Uncomplicated (without systemic symptoms) or Complicated (systemic symptoms)? @ -[ Side effects of treatment? @ -[No] Exacerbation, Progression, or Severe Exacerbation? @ -[No] Poses a threat to life or bodily function? How? (Chest pain, [place], CA, pneumonia, PE, COPD, DKA, ARF, appy, cholecystitis, CVA, Diverticulitis, Homicidal, Suicidal, threat to staff... and all critical care pts) @ -[No] All treatments are based on ideal body weight as in ED triage - Lab Data Result diagrams: 03/10/25 02:25 03/10/25 02:25 Lab Results 03/10/25 03/10/25 03/10/25 Range/Units 01:38 02:25 02:25 WBC 9.44 (4.50-10.00) 10*3/uL RBC 4.37 (4.10-5.20) 10*6/uL Hgb 14.2 (12.0-15.0) g/dL Hct 39.9 (37.2-46.3) % MCV 91.3 (80.0-97.0) fL MCH 32.5 H (27.0-32.0) pg MCHC 35.6 (32.0-37.0) g/dL Plt Count 157 (140-440) 10*3/uL MPV 11.2 (9.5-12.2) fL Immature Gran % (Auto) 0.2 % Neutrophils % 86.7 % Lymphocytes % 8.6 % Monocytes % 4.2 % Eosinophils % 0.2 % Basophils % 0.1 % Immature Gran # 0.02 (0.00-0.04) 10*3/uL Neutrophils # 8.18 H (1.80-7.70) 10*3/uL Lymphocytes # 0.81 L (0.90-5.00) 10*3/uL Monocytes # 0.40 (0.20-1.00) 10*3/uL Eosinophils # 0.02 L (0.04-0.35) 10*3/uL Basophils # 0.01 (0.00-0.10) 10*3/uL Sodium 138 (137-145) mmol/L Potassium 4.3 (3.5-5.1) mmol/L Chloride 100 (98-107) mmol/L Carbon Dioxide 22 (22-30) mmol/L Anion Gap 16 mmol/L BUN 22 H (7-17) mg/dL Creatinine 0.59 (0.52-1.04) mg/dL Est GFR (CKD-EPI)AfAm >90 (>60 ml/min/1.73 sqM) Est GFR (CKD-EPI)NonAf >90 (>60 ml/min/1.73 sqM) Glucose 183 H (74-99) mg/dL POC Glucose (mg/dL) 185 H (70-110) mg/dL POC Glu Quality Control Chemist ID [place] Calcium 10.5 H (8.4-10.2) mg/dL Total Bilirubin 0.9 (0.2-1.3) mg/dL AST 57 H (14-36) U/L ALT 70 H (4-34) U/L Alkaline Phosphatase 69 (38-126) U/L C-Reactive Protein <0.5 (<1.0) mg/dL Total Protein 8.0 (6.3-8.2) g/dL Albumin 5.0 (3.5-5.0) g/dL Amylase 76 (30-110) U/L Lipase 205 (23-300) U/L Urine Color Urine Appearance (Clear) Urine pH (5.0-8.0) Ur Specific [place] (1.001-1.035) Urine Protein (Negative) Urine Glucose (UA) (Negative) Urine Ketones (Negative) Urine Blood (Negative) Urine Nitrite (Negative) Urine Bilirubin (Negative) Urine Urobilinogen (<2.0) mg/dL Ur Leukocyte Esterase (Negative) Urine RBC (0-5) /hpf Urine WBC (0-5) /hpf Ur Squamous Epith Cells (0-4) /hpf Urine Bacteria (None) /hpf Hyaline Casts (0-2) /lpf Urine Mucus (None) /hpf Urine Yeast (Budding) (None) /hpf 03/10/25 Range/Units 03:42 WBC (4.50-10.00) 10*3/uL RBC (4.10-5.20) 10*6/uL Hgb (12.0-15.0) g/dL Hct (37.2-46.3) % MCV (80.0-97.0) fL MCH (27.0-32.0) pg MCHC (32.0-37.0) g/dL Plt Count (140-440) 10*3/uL MPV (9.5-12.2) fL Immature Gran % (Auto) % Neutrophils % % Lymphocytes % % Monocytes % % Eosinophils % % Basophils % % Immature Gran # (0.00-0.04) 10*3/uL Neutrophils # (1.80-7.70) 10*3/uL Lymphocytes # (0.90-5.00) 10*3/uL Monocytes # (0.20-1.00) 10*3/uL Eosinophils # (0.04-0.35) 10*3/uL Basophils # (0.00-0.10) 10*3/uL Sodium (137-145) mmol/L Potassium (3.5-5.1) mmol/L Chloride (98-107) mmol/L Carbon Dioxide (22-30) mmol/L Anion Gap mmol/L BUN (7-17) mg/dL Creatinine (0.52-1.04) mg/dL Est GFR (CKD-EPI)AfAm (>60 ml/min/1.73 sqM) Est GFR (CKD-EPI)NonAf (>60 ml/min/1.73 sqM) Glucose (74-99) mg/dL POC Glucose (mg/dL) (70-110) mg/dL POC Glu Quality Control Chemist ID Calcium (8.4-10.2) mg/dL Total Bilirubin (0.2-1.3) mg/dL AST (14-36) U/L ALT (4-34) U/L Alkaline Phosphatase (38-126) U/L C-Reactive Protein (<1.0) mg/dL Total Protein (6.3-8.2) g/dL Albumin (3.5-5.0) g/dL Amylase (30-110) U/L Lipase (23-300) U/L Urine Color Yellow Urine Appearance Clear (Clear) Urine pH 6.0 (5.0-8.0) Ur Specific [place] 1.025 (1.001-1.035) Urine Protein Trace H (Negative) Urine Glucose (UA) Negative (Negative) Urine Ketones 1+ H (Negative) Urine Blood Negative (Negative) Urine Nitrite Negative (Negative) Urine Bilirubin Negative (Negative) Urine Urobilinogen <2.0 (<2.0) mg/dL Ur Leukocyte Esterase Small H (Negative) Urine RBC 1 (0-5) /hpf Urine WBC 4 (0-5) /hpf Ur Squamous Epith Cells 1 (0-4) /hpf Urine Bacteria Rare H (None) /hpf Hyaline Casts 8 H (0-2) /lpf Urine Mucus Rare H (None) /hpf Urine Yeast (Budding) Rare H (None) /hpf Disposition Clinical Impression: Vomiting, Hip pain Disposition: HOME SELF-CARE Condition: Good Instructions (If sedation given, give patient instructions): Acute Nausea and Vomiting (ED) Prescriptions: HYDROcodone/APAP 5-325MG [[place] 5-325] 1 tab PO Q4HR PRN 3 Days #18 tab PRN Reason: Pain Ondansetron Odt [Zofran ODT] 4 mg PO Q8HR PRN #10 tab PRN Reason: Nausea Is patient prescribed a controlled substance at d/c from ED?: Yes Referrals: Daphne Waite MD [Primary Care Provider] - 1-2 days
== END 2025-03-10 05:35 | disposition home or self-care (01) ==
LOC: EC 01:16
DX: R11.2 Nausea with vomiting, unspecified (principal); G89.29 Other chronic pain; M25.551 Pain in right hip; Z87.891 Personal history of nicotine dependence
CPT/HCPCS: 36415; 80053; 82150; 83690; 85025; 86140; 81001; 99284; 96374; 96375; 96376; J2270; J2405